=== PATIENT | female | born 1940 | race Caucasian/White ===

== ENCOUNTER → 2017-01-03 | Outpatient (CLI) | payer OTHER ==
[~2017-01-03] MED LIST: CHOL1CAP57 PO; CLC100 PO; CYAN500T13 PO; FENO1TAB24 PO; FOLI1TAB7 PO; NRN400 PO; OMEP40CA PO; RXC5 PO; TRAM-10 PO; TRIATAB3 PO; WARF4TAB PO; ZOLP10TA6 PO
[2017-01-03 13:22] LABS: BASO % 0.6 %; BASO ABS # 0.04 K/uL (0-0.2); COMPLETE YES; EOS % 3.6 %; HEMATOCRIT 36.8 % (37-47); IG% 0.3 %; LYMPH ABS # 1.89 K/uL (1.2-3.4); MEAN CELL VOLUME 80.2 fL (80-100); MEAN CORPUSCULAR HEMOGLOBIN 26.1 pg (25-34); MEAN CORPUSCULAR HGB CONC 32.6 g/dl (32-36); MEAN PLATELET VOLUME 8.9 fL (7.4-10.4); MONO % 6.9 %; NEUT % 62.6 %; PLATELET COUNT 364 K/uL (130-400); RED BLOOD COUNT 4.59 M/uL (4.2-5.4); WHITE BLOOD COUNT 7.27 K/uL (4.8-10.8)
[2017-01-03 13:38] LABS: BLOOD UREA NITROGEN 36 mg/dl (7-18); BUN/CREATININE RATIO 32.4 (10-20); CALCIUM 10.1 mg/dl (8.5-10.1); CARBON DIOXIDE 27 mmol/L (21-32); CHLORIDE 105 mmol/L (98-107); GLUCOSE 119 mg/dl (70-99); POTASSIUM 3.6 mmol/L (3.5-5.1); SODIUM 141 mmol/L (136-145)
[2017-01-03 13:42] LABS: FERRITIN 146.3 ng/ml (8.0-388.0)
--- NOTE | 2017-01-23 13:35 | CODING QUERY MEDICAL NECESSITY ---
SUPPORTING DIAGNOSIS NEEDED A supporting diagnosis is required for the test/procedure performed on this patient in order for us to be reimbursed by the patient's insurance. Please provide a supporting diagnosis for the following test/procedure listed below next to the test name along with your signature. *If there is no additional diagnosis for this patient that would support the following test/procedure please document that below next to the test/procedure. Test(s)/Procedure(s) that require a supporting diagnosis: DOS 01/03 * Vitamin B12 DIAGNOSIS: Provider Signature: Date: Thank you Chayo Ashraf Health Information Management Once completed, please kindly fax back to [phone] For questions please call [phone]
== END | disposition home or self-care (01) ==
LOC: C.LABBC 11:20
PROVIDERS: ATTEND Internal Medicine
DX: D64.9 Anemia, unspecified (principal); E55.9 Vitamin D deficiency, unspecified

== ENCOUNTER → 2017-02-27 | Outpatient (CLI) | payer OTHER ==
[~2017-02-27] MED LIST changes: +CALC-279 PO; +FERR1TAB23 PO; +GABA-113 PO; +LOSA1TAB PO; +MONT1TAB3 PO; +OMEP40CA41 PO
[2017-02-27 15:01] LABS: URINE APPEARANCE CLEAR (CLEAR); URINE BILIRUBIN NEG (NEG); URINE COLOR YELLOW; URINE EPITHELIAL CELL AUTO 0-5 /lpf (0-5); URINE NITRITE NEG (NEG); URINE PH 7.5 (4.5-7.5); URINE SPECIFIC GRAVITY 1.016 (1.000-1.030); UROBILINOGEN NEG (NEG)
[2017-02-27 15:11] LABS: MANUAL MICROSCOPIC REQUIRED? NO; REVIEW REQ? NO
== END | disposition home or self-care (01) ==
LOC: C.LAB1850 13:47
PROVIDERS: ATTEND Internal Medicine Rheumatology
DX: R35.0 Frequency of micturition (principal); E55.9 Vitamin D deficiency, unspecified; M81.0 Age-related osteoporosis without current pathological fracture; E61.8 Deficiency of other specified nutrient elements

== ENCOUNTER → 2017-03-08 | Outpatient (CLI) | payer OTHER ==
--- NOTE | 2017-03-08 14:57 | DIAGNOSTIC IMAGING REPORT ---
KUB CLINICAL HISTORY: Urinary urgency. FINDINGS: An AP supine abdominal radiograph is correlated with abdominal CT dated 03/11/2016. Suture material projects over the right mid to lower abdomen. Surgical clips are seen in the upper abdomen and right lower quadrant. There is no radiographic evidence of bowel obstruction. Moderate colonic fecal retention is observed. No evidence of intraperitoneal free air is seen on this supine examination. A punctate nonobstructing left renal calculus is identified. Vascular calcifications are seen in the left upper quadrant. The skeletal structures are osteopenic. There is lumbosacral spondylosis with evidence of previous lumbar spinal fusion surgery. The bony pelvis is intact as imaged. IMPRESSION: 1. Nonobstructed abdominal bowel gas pattern noting moderate colonic fecal retention. 2. Postoperative changes as above. 3. A nonobstructing left calculus is identified. Electronically signed by: Rc Aguilar M.D. 03/08/2017 2:54 PM Dictated Date/Time: 03/08/2017 2:53 PM
--- NOTE | 2017-03-08 16:10 | DIAGNOSTIC IMAGING REPORT ---
RENAL ULTRASOUND CLINICAL HISTORY: Renal cyst. COMPARISON STUDY: CT of the abdomen and pelvis March 11, 2016 and January 14, 2013. TECHNIQUE: Sonography of the kidneys and the urinary bladder was performed. FINDINGS: The right kidney measures 10.9 cm in maximal dimension and the left measures 10.2 cm. Each renal pelvis is prominent. This is unchanged. There is no hydronephrosis. Numerous cysts are noted within each kidney, the largest of which is a 2.1 cm right-sided cyst. Renal echogenicity is mildly increased. A 2.8 cm right hepatic lobe cyst containing debris is noted. The left ureteral jet was less. The right was not visualized. IMPRESSION: 1. Numerous bilateral renal cysts. 2. 2.8 cm right hepatic lobe cyst. 3. No hydronephrosis. Electronically signed by: Fred Patel M.D. 03/08/2017 4:08 PM Dictated Date/Time: 03/08/2017 4:06 PM
== END | disposition home or self-care (01) ==
LOC: C.ULTR 13:42
PROVIDERS: ATTEND Urology
DX: R39.15 Urgency of urination (principal); N28.1 Cyst of kidney, acquired; K59.00 Constipation, unspecified; N20.0 Calculus of kidney; K76.89 Other specified diseases of liver

== ENCOUNTER → 2017-03-09 | Outpatient (CLI) | payer OTHER ==
--- NOTE | 2017-03-09 16:29 | MAMMOGRAPHY REPORT ---
BILATERAL DIGITAL SCREENING MAMMOGRAM WITH CAD: 03/09/2017 CLINICAL HISTORY: Routine screening. Patient has no complaints. TECHNIQUE: Current study was also evaluated with a Computer Aided Detection (CAD) system. Bilatera l CC and MLO views were obtained. COMPARISON: Comparison is made to exams dated: 12/21/2015 mammogram, 11/04/2014 mammogram, 10/14/2013 mammogram, 09/27/2011 mammogram, 10/11/2012 mammogram, and 09/21/2010 ultrasound - [facility]. BREAST COMPOSITION: There are scattered areas of fibroglandular density in both breasts. FINDINGS: No suspicious masses, calcifications, or areas of architectural distortion are noted in e ither breast. There has been no significant interval change compared to prior exams. Bilateral kesha gn appearing calcifications are not significantly changed compared to prior exams. IMPRESSION: ACR BI-RADS CATEGORY 2: BENIGN There is no mammographic evidence of malignancy. A 1 year screening mammogram is recommended. The p atient will receive written notification of the results. Approximately 10% of breast cancers are not detected with mammography. A negative mammographic repor t should not delay biopsy if a clinically suggestive mass is present. Maria Luz Kirk M.D. /:03/09/2017 15:35:06 Facility Maintenance Mechanic: Pita COBIAN,R, M, [facility] letter sent: Normal 1/2 BI-RADS Code: ACR BI-RADS Category 2: Benign
== END | disposition home or self-care (01) ==
LOC: C.MAMM 13:35
PROVIDERS: ATTEND Obstetrics & Gynecology
DX: Z12.31 Encounter for screening mammogram for malignant neoplasm of breast (principal)

== ENCOUNTER → 2017-04-11 | Outpatient (CLI) | payer OTHER ==
[2017-04-11 17:07] LABS: URINE APPEARANCE CLEAR (CLEAR); URINE BILIRUBIN NEG (NEG); URINE COLOR YELLOW; URINE EPITHELIAL CELL AUTO 0-5 /lpf (0-5); URINE NITRITE POS (NEG); UROBILINOGEN NEG (NEG)
[2017-04-11 17:11] LABS: MANUAL MICROSCOPIC REQUIRED? NO; REVIEW REQ? NO
[2017-04-11 18:04] LABS: RATIO 59.3 mcg/mg (0-30.0)
== END | disposition home or self-care (01) ==
LOC: C.LABBC 15:23
PROVIDERS: ATTEND Internal Medicine
DX: E11.9 Type 2 diabetes mellitus without complications (principal); N39.0 Urinary tract infection, site not specified

== ENCOUNTER → 2017-06-09 | Outpatient (CLI) | payer OTHER ==
[~2017-06-09] MED LIST changes: -CALC-279 PO; -FERR1TAB23 PO; -GABA-113 PO; -LOSA1TAB PO; -MONT1TAB3 PO; -OMEP40CA41 PO
[2017-06-09 11:38] LABS: ALT/SGPT 29 U/L (12-78); AST/SGOT 17 U/L (15-37); BLOOD UREA NITROGEN 35 mg/dl (7-18); BUN/CREATININE RATIO 28.8 (10-20); CALCIUM 9.5 mg/dl (8.5-10.1); CARBON DIOXIDE 24 mmol/L (21-32); CHLORIDE 107 mmol/L (98-107); GLUCOSE 158 mg/dl (70-99); POTASSIUM 4.3 mmol/L (3.5-5.1); SODIUM 141 mmol/L (136-145)
[2017-06-09 11:41] LABS: CHOLESTEROL 231 mg/dl (0-200); CHOLESTEROL/HDL RATIO 3.6; HDL CHOLESTEROL 64 mg/dl; LDL CHOLESTEROL CALCULATED 141 mg/dl; TRIGLYCERIDES 130 mg/dl (0-150); VERY LOW DENSITY LIPOPROT CALC 26 mg/dl
[2017-06-09 11:50] LABS: ESTIMATED AVERAGE GLUCOSE 137 mg/dl; HA1C FLAG Normal (Normal)
== END | disposition home or self-care (01) ==
LOC: C.LABBC 07:58
PROVIDERS: ATTEND Internal Medicine
DX: N39.0 Urinary tract infection, site not specified (principal); G62.9 Polyneuropathy, unspecified; E78.5 Hyperlipidemia, unspecified; E11.9 Type 2 diabetes mellitus without complications; Z85.038 Personal history of other malignant neoplasm of large intestine

== ENCOUNTER → 2017-09-15 | Outpatient (CLI) | payer OTHER ==
[~2017-09-15] MED LIST changes: +CALC-279 PO; +FERR1TAB23 PO; +GABA-113 PO; +LOSA1TAB PO; +MONT1TAB3 PO; +OMEP40CA41 PO
[2017-09-15 10:53] LABS: HEMATOCRIT 39.5 % (37-47); MEAN CELL VOLUME 84.4 fL (80-100); MEAN CORPUSCULAR HEMOGLOBIN 27.4 pg (25-34); MEAN CORPUSCULAR HGB CONC 32.4 g/dl (32-36); MEAN PLATELET VOLUME 8.9 fL (7.4-10.4); PLATELET COUNT 350 K/uL (130-400); RED BLOOD COUNT 4.68 M/uL (4.2-5.4); WHITE BLOOD COUNT 6.65 K/uL (4.8-10.8)
[2017-09-15 11:21] LABS: ALT/SGPT 34 U/L (12-78); BLOOD UREA NITROGEN 28 mg/dl (7-18); BUN/CREATININE RATIO 28.5 (10-20); CALCIUM 9.8 mg/dl (8.5-10.1); CARBON DIOXIDE 29 mmol/L (21-32); CHLORIDE 106 mmol/L (98-107); CHOLESTEROL 217 mg/dl (0-200); CREATININE 0.98 mg/dl (0.60-1.20); GLUCOSE 113 mg/dl (70-99); POTASSIUM 3.7 mmol/L (3.5-5.1); SODIUM 141 mmol/L (136-145); TRIGLYCERIDES 200 mg/dl (0-150); VERY LOW DENSITY LIPOPROT CALC 40 mg/dl
[2017-09-15 11:22] LABS: ALB/GLOB RATIO 1.1 (0.9-2); ALKALINE PHOSPHATASE 46 U/L (45-117); AST/SGOT 24 U/L (15-37); CHOLESTEROL/HDL RATIO 3.9; HDL CHOLESTEROL 55 mg/dl; LDL CHOLESTEROL CALCULATED 122 mg/dl
[2017-09-15 11:30] LABS: ESTIMATED AVERAGE GLUCOSE 134 mg/dl; HA1C FLAG Normal (Normal)
[2017-09-15 11:31] LABS: RATIO 21.3 mcg/mg (0-30.0)
== END | disposition home or self-care (01) ==
LOC: C.LABBC 08:19
PROVIDERS: ATTEND Internal Medicine
DX: E11.9 Type 2 diabetes mellitus without complications (principal); D64.9 Anemia, unspecified; E78.5 Hyperlipidemia, unspecified; E83.52 Hypercalcemia

== ENCOUNTER → 2017-09-18 | Outpatient (CLI) | payer OTHER ==
[~2017-09-18] MED LIST changes: +GADAVIST IV PRN
--- NOTE | 2017-09-18 11:45 | DIAGNOSTIC IMAGING REPORT ---
LUMBAR SPINE MRI WITH AND WITHOUT CONTRAST HISTORY: LT LEG Numbness, s/p LAMINECTOMY TECHNIQUE: Multiplanar multisequence MRI of the lumbar spine was performed both before and after the intravenous administration of contrast. COMPARISON: Lumbar spine 08/28/2016. Lumbar spine MRI 12/28/2015.. FINDINGS: For the purpose of the report the L5-S1 disc space will be located on axial image 23 of 25. There is again noted posterior decompression and fusion from L3 through L5 with pedicle screws and rods. Interval progression of 4 mm of anterolisthesis of L4 on L5. Moderate to severe superior endplate compression deformity at T12 which demonstrates 4 mm of retropulsion of the posterior superior corner. No significant edema within the endplate. Therefore, this is consistent with an old, healed fracture. This results in mild central canal narrowing and abuts and slightly deforms the anterior cord at this level. No acute fractures identified within the lumbar spine. Soft tissue edema at the laminectomy sites is likely due to the postoperative change. The conus terminates at the L1 level. Severe disc space narrowing at L1-L2, L2-L3, L3-L4. Moderate to space narrowing at L4-L5 and L5-S1. Enhancement at the laminectomy sites persist and likely represents postoperative change. Bilateral renal cysts are again noted. L1-L2: Progressive broad-based posterior disc bulge and ligamentum and facet hypertrophy resulting in mild to moderate central canal and neural foraminal narrowing. L2-L3: Progressive broad-based posterior disc bulge and ligamentum and facet hypertrophy resulting in moderate central canal and moderate bilateral neural foraminal narrowing. L3-L4: Small broad-based posterior disc bulge without central canal narrowing due to the decompression. There is moderate right neural foraminal narrowing, unchanged. L4-L5: No significant central canal narrowing. Moderate to severe bilateral neural foraminal narrowing. L5-S1: No significant central canal or neural foraminal narrowing. IMPRESSION: 1. There is an old moderate to severe superior endplate compression fracture at T12 with 4 mm of retropulsion. This abuts and slightly deforms the distal anterior thoracic cord. 2. Progressive central canal narrowing at L1-L2 and L2-L3 as described above. 3. Additional postoperative and degenerative changes as described above. Electronically signed by: Salvador Nova M.D. 09/18/2017 11:44 AM Dictated Date/Time: 09/18/2017 11:27 AM
== END | disposition home or self-care (01) ==
LOC: C.MRI 09:53
PROVIDERS: ATTEND Physical Medicine & Rehabilitation
DX: R20.0 Anesthesia of skin (principal); Z91.81 History of falling; Z98.1 Arthrodesis status; M48.061 Spinal stenosis, lumbar region without neurogenic claudication; S22.089S Unspecified fracture of T11-T12 vertebra, sequela; X58.XXXS Exposure to other specified factors, sequela

== ENCOUNTER → 2017-10-11 | Day surgery (SDC) | payer OTHER ==
[2017-09-28 15:15] VITALS: Ht 154.9 cm; Wt 60.0 kg
[~2017-10-11] VITALS: Ht 154.9 cm; Wt 60.0 kg
[~2017-10-11] MED LIST changes: +BUPIVACAINE 0.25% 2.5MG/ML PF 10 ML VIAL ONE; -CLC100 PO; -GADAVIST IV PRN; +IOPAMIDOL INJ 61% 15 ML VIAL ONE; +LIDOCAINE HCL 1% MPF 5 ML VIAL ONE; -NRN400 PO; -OMEP40CA PO; -RXC5 PO
[2017-10-11 14:27] LABS: PROTHROMBIN TIME (PATIENT) 10.6 SECONDS (9.0-12.0)
--- NOTE | 2017-10-11 15:32 | History & Physical Bridge - SC ---
H&P Re-Evaluation Bridge Note: I have examined the patient, reviewed the History & Physical and in the interval since the performance of the History & Physical I have noted the following changes of clinical significance: No changes noted
--- NOTE | 2017-10-11 16:03 | Discharge Instructions ---
Discharge Instructions Date of Service Oct 11, 2017. Visit Reason for Visit: Lumbar Radiculopathy Discharge Discharge Diagnosis / Problem: left leg pain Discharge Goals Goal(s): Decrease discomfort, Improve function Activity Recommendations Activity Limitations: resume your previous activity Anesthesia . Post Anesthesia Instructions: If you have had General Anesthesia or IV Sedation: * Do not drive today. * Resume driving when surgeon permits. * Do not make important decisions or sign legal documents today. * Call surgeon for: 1. Temperature elevations greater than 101 degrees F. 2. Uncontrollable pain. 3. Excessive bleeding. 4. Persistent nausea and vomiting. 5. Medication intolerance (nausea, vomiting or rash). * For nausea and vomiting use only clear liquids such as: tea, soda, bouillon until nausea subsides, then gradually increase diet as tolerated. * If you have any concerns or questions, call your surgeon's office. If physician is unavailable and it is an emergency, call 911 or go to the nearest emergency room. . Diet Recommendations Recommended Home Diet: resume previous diet Procedures Procedures Performed: Left L4-5 Transforaminal Epidural Steroid Injection Pending Studies Studies pending at discharge: no Medical Emergencies . Who to Call and When: Medical Emergencies: If at any time you feel your situation is an emergency, please call 911 immediately. . Non-Emergent Contact Non-Emergency issues call your: Specialist . . "Provider Documentation" section prepared by Tyrone Maldonado. .
[2017-10-11 16:10] VITALS: BP 159/77; PULSE 63; TEMP 37; O2SAT 98
--- NOTE | 2017-10-11 16:20 | OPERATIVE REPORT ---
DATE OF OPERATION: 10/11/2017 PREOPERATIVE DIAGNOSES: Left L4 radiculopathy, history of an L3 through L5 decompression with persistent left L4 radiculopathy. POSTOPERATIVE DIAGNOSES: Same. PROCEDURE: Left transforaminal L4 epidural steroid injection under fluoroscopic guidance. INDICATIONS FOR PROCEDURE: The patient is a 77-year-old white female who has received an epidural via a transforaminal approach a year ago with good results. Just recently, the pain started to escalate and come back. She presents today for an injection to provide her with sustained relief. PHYSICAL EXAMINATION: Pleasant female seated comfortably. Some soreness in the left sciatic notch area. She has decreased subjective sensation in the L4 dermatomal distribution. Negative seated straight leg raises. CONSENT: Verbal and written consent was reviewed from the patient. Risks and benefits were reviewed. Risks include but are not limited to epidural abscess, epidural hematoma, allergic reaction, dural puncture. The patient wishes to proceed. DESCRIPTION OF PROCEDURE: The patient was taken back to the special procedures room of the [facility] where she was maintained in a prone position. Backside was cleansed with Betadine x3 and a dry sterile dressing was applied. Fluoroscope was used to identify the L4-5 pedicle area. The projection was then done in an oblique view targeting right below the L4 pedicle and overlying skin was anesthetized with 4 mL of lidocaine 1% with a 25-gauge 1.5-inch needle. A 22-gauge 5-inch spinal needle was then directed targeting inferior pedicle which was somewhat hard to see because of the hardware. After it was targeted in the oblique view, it was moved to an AP projection to advance it. The patient noted some leg discomfort. It was retracted a few millimeters and injected with Isovue 300 contrast which demonstrated outlined of the nerve. She then underwent injection after negative aspiration of 40 mg of Depo-Medrol and 1.5 mL of bupivacaine 0.25%. Injection was well tolerated, reproduced a familiar transient radicular sensation down the left leg. DISPOSITION: 1. The patient is taken out into the discharge recovery area where she will be discharged home once discharge criteria have been met. 2. Follow up in the [facility] office in 2-4 weeks. I attest to the content of the Intraoperative Record and any orders documented therein. Any exception s are noted below.
== END | disposition home or self-care (01) ==
LOC: X.SURG 13:41
PROVIDERS: ATTEND Physical Medicine & Rehabilitation
DX: M54.16 Radiculopathy, lumbar region (principal); Z98.1 Arthrodesis status

== ENCOUNTER → 2017-10-30 | Outpatient (CLI) | payer OTHER ==
[~2017-10-30] MED LIST changes: -BUPIVACAINE 0.25% 2.5MG/ML PF 10 ML VIAL ONE; -IOPAMIDOL INJ 61% 15 ML VIAL ONE; -LIDOCAINE HCL 1% MPF 5 ML VIAL ONE
--- NOTE | 2017-10-30 14:23 | DIAGNOSTIC IMAGING REPORT ---
KUB CLINICAL HISTORY: R30.0 [id number] pain. Dysuria. COMPARISON STUDY: Port fluoroscopy 2017 FINDINGS: Limited visibility of the urinary tracts. Considerable fecal content. Vague microcalcification central left kidney measuring 2.5 mm. Right kidney is not diagnostically evaluated. Stable postoperative changes low lumbar spine. IMPRESSION: Nonobstructing microcalcifications central left kidney. Otherwise unchanged exam within limitations of overlying fecal content. The above report was generated using voice recognition software. It may contain grammatical, syntax or spelling errors. Electronically signed by: Charan Alejo M.D. 10/30/2017 2:21 PM Dictated Date/Time: 10/30/2017 2:19 PM
== END | disposition home or self-care (01) ==
LOC: C.RAD 13:42
PROVIDERS: ATTEND Urology
DX: N28.89 Other specified disorders of kidney and ureter (principal); N20.0 Calculus of kidney; N28.1 Cyst of kidney, acquired; N39.0 Urinary tract infection, site not specified; R39.15 Urgency of urination

== ENCOUNTER → 2017-10-31 | Outpatient (CLI) | payer OTHER | END | disposition home or self-care (01) | LOC: C.LABSPEC 17:02 | PROVIDERS: ATTEND Urology | DX: N39.0 Urinary tract infection, site not specified (principal) ==

== ENCOUNTER → 2017-11-02 | Outpatient (CLI) | payer OTHER ==
[~2017-11-02] MED LIST changes: -FOLI1TAB7 PO; +FOLI1TAB8 PO
--- NOTE | 2017-11-02 15:51 | DIAGNOSTIC IMAGING REPORT ---
R RIBS UNILATERAL WITH PA CHEST HISTORY: 77 years-old Female W19.XXXA [id number] Rib pain on right [id number] acute right-sided rib pain status post fall COMPARISON: Chest and rib radiographs 12/27/2013 TECHNIQUE: PA view of the chest with 4 views of the right ribs FINDINGS: Cardiac silhouette is upper limits of normal. Atherosclerosis of the aorta. No pneumothorax or large pleural effusion. There is chronic blunting of the right costophrenic angle. Fusion hardware of the cervical spine is noted. The bones appear osteopenic. There is subtle cortical irregularity involving the posterior lateral aspect of the right seventh rib which appears new from prior exam. The ribs otherwise appear intact. No acute displaced rib fracture is identified. Surgical clips of the right abdomen are noted. Posterior alem and screw fusion hardware of the lumbar spine. Surgical suture material the right lower quadrant. IMPRESSION: 1. Subtle cortical irregularity involving the posterior lateral aspect of the right seventh rib may reflect acute or subacute nondisplaced fracture. Correlate with point tenderness. No displaced rib fracture or pneumothorax identified. 2. No acute cardiopulmonary process. The above report was generated using voice recognition software. It may contain grammatical, syntax or spelling errors. Electronically signed by: Kenan Fritz M.D. 11/02/2017 3:49 PM Dictated Date/Time: 11/02/2017 3:46 PM
== END | disposition home or self-care (01) ==
LOC: C.RAD1850 15:29
PROVIDERS: ATTEND Nurse Practitioner Adult Health
DX: R07.81 Pleurodynia (principal); W19.XXXA Unspecified fall, initial encounter

== ENCOUNTER → 2018-01-12 | Outpatient (CLI) | payer OTHER ==
[2018-01-12 14:07] LABS: HEMOGLOBIN A1C 6.5 % (4.5-5.6)
[2018-01-12 14:08] LABS: BLOOD UREA NITROGEN 35 mg/dl (7-18); CALCIUM 10.2 mg/dl (8.5-10.1); CARBON DIOXIDE 24 mmol/L (21-32); CREATININE 1.13 mg/dl (0.60-1.20); GLUCOSE 129 mg/dl (70-99); HEMATOCRIT 37.2 % (37-47); HEMOGLOBIN 12.1 g/dL (12.0-16.0); MEAN CELL VOLUME 83.4 fL (80-100); MEAN CORPUSCULAR HEMOGLOBIN 27.1 pg (25-34); MEAN CORPUSCULAR HGB CONC 32.5 g/dl (32-36); MEAN PLATELET VOLUME 8.9 fL (7.4-10.4); PLATELET COUNT 344 K/uL (130-400); POTASSIUM 3.5 mmol/L (3.5-5.1); RED CELL DISTRIBUTION WIDTH CV 15.3 % (11.5-14.5); RED CELL DISTRIBUTION WIDTH SD 46.8 fL (36.4-46.3); SODIUM 138 mmol/L (136-145); WHITE BLOOD COUNT 8.16 K/uL (4.8-10.8)
== END | disposition home or self-care (01) ==
LOC: C.LABBC 10:18
PROVIDERS: ATTEND Internal Medicine
DX: M81.0 Age-related osteoporosis without current pathological fracture (principal); N18.3 Chronic kidney disease, stage 3 (moderate); E55.9 Vitamin D deficiency, unspecified; E11.9 Type 2 diabetes mellitus without complications; G62.9 Polyneuropathy, unspecified; E04.2 Nontoxic multinodular goiter

== ENCOUNTER → 2018-02-23 | Outpatient (CLI) | payer OTHER ==
[~2018-02-23] MED LIST changes: +FENO145T24 PO; -FENO1TAB24 PO
== END | disposition home or self-care (01) ==
LOC: C.LABBC 13:44
PROVIDERS: ATTEND Nurse Practitioner Adult Health
DX: N39.0 Urinary tract infection, site not specified (principal)

== ENCOUNTER → 2018-03-09 | Outpatient (CLI) | payer OTHER ==
[~2018-03-09] MED LIST changes: +ENOX1INJ10 SQ
== END | disposition home or self-care (01) ==
LOC: C.LABBC 13:36
PROVIDERS: ATTEND Nurse Practitioner Adult Health
DX: N39.0 Urinary tract infection, site not specified (principal)

== ENCOUNTER → 2018-03-13 | Outpatient (CLI) | payer OTHER ==
--- NOTE | 2018-03-14 07:51 | MAMMOGRAPHY REPORT ---
BILATERAL DIGITAL SCREENING MAMMOGRAM TOMOSYNTHESIS WITH CAD: 03/13/2018 CLINICAL HISTORY: Routine screening. Patient has no complaints. TECHNIQUE: Breast tomosynthesis in addition to standard 2D mammography was performed. Current study was also evaluated with a Computer Aided Detection (CAD) system. COMPARISON: Comparison is made to exams dated: 03/09/2017 mammogram, 12/21/2015 mammogram, 11/04/2014 m ammogram, 10/14/2013 mammogram, 10/11/2012 mammogram, and 09/27/2011 mammogram - [facility]. BREAST COMPOSITION: There are scattered areas of fibroglandular density in both breasts. FINDINGS: There are benign-appearing rim and rodlike calcifications in the breasts. No new suspiciou s mass, architectural distortion or cluster of microcalcifications is seen. IMPRESSION: ACR BI-RADS CATEGORY 1: NEGATIVE There is no mammographic evidence of malignancy. A 1 year screening mammogram is recommended. The pa tient will receive written notification of the results. Approximately 10% of breast cancers are not detected with mammography. A negative mammographic report should not delay biopsy if a clinically suggestive mass is present. Martha Shabazz M.D. ay/:03/13/2018 16:36:10 Director Of Construction: Medina COBIAN(Kourtney)(M), [facility] letter sent: Normal 1/2 BI-RADS Code: ACR BI-RADS Category 1: Negative
== END | disposition home or self-care (01) ==
LOC: C.MAMM 10:54
PROVIDERS: ATTEND Obstetrics & Gynecology
DX: Z12.31 Encounter for screening mammogram for malignant neoplasm of breast (principal)

== ENCOUNTER → 2018-03-15 | Day surgery (SDC) | payer OTHER ==
[2018-03-05 10:43] VITALS: Ht 154.9 cm; Wt 60.0 kg
[~2018-03-15] VITALS: Ht 154.9 cm; Wt 60.0 kg
[~2018-03-15] MED LIST changes: +IOPAMIDOL INJ 61% 15 ML VIAL ONE; +LIDOCAINE HCL 1% MPF 5 ML VIAL ONE; +SODIUM CHLORIDE 0.9% INJ 10 ML VIAL ONE
[2018-03-15 14:34] LABS: INR 1.1 (0.9-1.1)
--- NOTE | 2018-03-15 15:05 | [facility] Post Operative Brief Note ---
Immediate Operative Summary Operative Date Mar 15, 2018. Pre-Operative Diagnosis lumbar stenosis Post-Operative Diagnosis lumbar stenosis Procedure(s) Performed caudal OG Surgeon Dr. Tyrone Maldonado Bottling Equipment Sales Representative Surgeon(s) None Estimated Blood Loss 0 Findings Consistent with Post-Op Diagnosis Specimens NA Drains None Anesthesia Type Local Complication(s) none Disposition Disposition:
--- NOTE | 2018-03-15 15:34 | [facility] Post Operative Brief Note ---
Immediate Operative Summary Operative Date Mar 15, 2018. Pre-Operative Diagnosis L2-L3 stenosis and history of multilevel lumbarlaminectomy, decompression with presistent radicular pain Post-Operative Diagnosis Same Procedure(s) Performed Lumbar Epidural Steroid Injection Surgeon Dr. Ewa Maldonado Bead Preparer Surgeon(s) None Estimated Blood Loss 0 Findings Consistent with Post-Op Diagnosis Specimens NA Drains None Anesthesia Type Local Complication(s) none Disposition Disposition:
--- NOTE | 2018-03-15 15:35 | Discharge Instructions ---
Discharge Instructions Date of Service Mar 15, 2018. Visit Reason for Visit: Lumbar Radiculopathy, Lumbar Spinal Stenosis Discharge Discharge Diagnosis / Problem: Leg pain Discharge Goals Goal(s): Decrease discomfort, Improve function Medications Stopped Medications Name(s): coumadin 3mg, last dose 03/11/18 Activity Recommendations Activity Limitations: resume your previous activity Anesthesia . Post Anesthesia Instructions: If you have had General Anesthesia or IV Sedation: * Do not drive today. * Resume driving when surgeon permits. * Do not make important decisions or sign legal documents today. * Call surgeon for: 1. Temperature elevations greater than 101 degrees F. 2. Uncontrollable pain. 3. Excessive bleeding. 4. Persistent nausea and vomiting. 5. Medication intolerance (nausea, vomiting or rash). * For nausea and vomiting use only clear liquids such as: tea, soda, bouillon until nausea subsides, then gradually increase diet as tolerated. * If you have any concerns or questions, call your surgeon's office. If physician is unavailable and it is an emergency, call 911 or go to the nearest emergency room. . Diet Recommendations Recommended Home Diet: resume previous diet Procedures Procedures Performed: Lumbar Epidural Steroid Injection Pending Studies Studies pending at discharge: no Medical Emergencies . Who to Call and When: Medical Emergencies: If at any time you feel your situation is an emergency, please call 911 immediately. . Non-Emergent Contact Non-Emergency issues call your: Specialist . . "Provider Documentation" section prepared by Tyrone Maldonado. .
[2018-03-15 15:56] VITALS: BP 150/73; PULSE 64; TEMP 36.8; O2SAT 98
--- NOTE | 2018-03-15 16:12 | OPERATIVE REPORT ---
DATE OF OPERATION: 03/15/2018 PREOPERATIVE DIAGNOSIS: Status post laminectomy with persistent radicular pain with L2-L3 stenosis with persistent bilateral lower extremity radiculopathies. POSTOPERATIVE DIAGNOSES: Status post laminectomy with persistent radicular pain with L2-L3 stenosis with persistent bilateral lower extremity radiculopathies. PROCEDURE: Left paramedian L2-L3 intralaminar epidural steroid injection under fluoroscopic guidance. INDICATIONS: The patient is a 77-year-old white female who is having pain that is radiating into the thighs. She has known stenosis at L2-L3 above the level of her laminectomy, presents today for an epidural injection to provide her with relief. She previously responded favorably to an L4 transforaminal. This pain does not go below the knee, it is concentrated into the thighs. PHYSICAL EXAMINATION: A pleasant female, seated comfortably. Lower extremities were examined. She had normal lower extremity strength. Negative seated straight leg raises, intact sensation distally. CONSENT: Verbal and written consent was obtained from the patient. Risks and benefits were reviewed. Risks include but are not limited to abscess and allergic reaction. The patient wishes to proceed. PROCEDURE IN DETAIL: The patient was taken back to the special procedures room of the [facility] where she was maintained in a prone position. Backside was cleansed with Betadine x3 and a dry sterile dressing was applied. Fluoroscope was used to identify the L2-L3 intralaminar space. The overlying skin was anesthetized with 4 mL of lidocaine 1% on the left parasagittal region with a 25 gauge 1.5-inch needle. A 22-gauge 3.5-inch Tuohy needle was then directed down towards the intralaminar space. It was advanced under lateral fluoroscopic guidance and loss of resistance was noted at a depth of 5 cm. Isovue-300 contrast 1 mL was injected in, which demonstrated an epidural uptake pattern. She then underwent injection after negative aspiration of 40 mg of Depo-Medrol and 4 mL preservative-free sodium chloride that reproduced a familiar transient radicular sensation into the thigh. DISPOSITION: 1. The patient is taken out into the discharge recovery area where she will be discharged home once discharge criteria are met. 2. Follow up in the [facility] office in 4 weeks' time. I attest to the content of the Intraoperative Record and any orders documented therein. Any exception s are noted below.
== END ==
LOC: X.SURG 13:36
PROVIDERS: ATTEND Physical Medicine & Rehabilitation
DX: M54.16 Radiculopathy, lumbar region (principal); M48.061 Spinal stenosis, lumbar region without neurogenic claudication; M96.1 Postlaminectomy syndrome, not elsewhere classified

== ENCOUNTER → 2018-06-28 | Outpatient (CLI) | payer OTHER ==
[~2018-06-28] MED LIST changes: -ENOX1INJ10 SQ; -GABA-113 PO; +GABA-1693 PO; -IOPAMIDOL INJ 61% 15 ML VIAL ONE; -LIDOCAINE HCL 1% MPF 5 ML VIAL ONE; -SODIUM CHLORIDE 0.9% INJ 10 ML VIAL ONE
[2018-06-28 14:07] LABS: CREATININE RANDOM URINE 77.7 mg/dl
== END | disposition home or self-care (01) ==
LOC: C.LABBC 10:43
PROVIDERS: ATTEND Urology
DX: E11.9 Type 2 diabetes mellitus without complications (principal); R39.15 Urgency of urination; N39.0 Urinary tract infection, site not specified

== ENCOUNTER 2019-02-14 05:03 | Inpatient (IN) ==
--- NOTE | 2019-01-29 09:39 | Anesthesiology Consultation ---
Date of Service January 29, 2019 Assessment & Plan (1) Encounter for pre-operative examination: CHECK PT/INR/PTT STAT AM DOS. Chart Review Chart Review: Acceptable Risk for Surgery and Patient seen in Pre Admission Testing Teaching & Discussion Instructed NPO after midnight before surgery, except medications with 15 cc of water. Medication instructions provided according to the PAT guidelines. History Surgery Operation Date: 02/14/19 07:00 Proposed Procedures p Laparoscopic Cholecystectomy, - Bryson Sanchez, DO s Laparoscopic Hand Assisted Nephrectomy - Harman Dutta MD Height/Weight Height: 5 ft 1 in Weight: 60.8 kg Allergies Allergy/AdvReac Type Severity Reaction Status Date / Time cephalexin [From Keflex] Allergy Severe Hives Verified 01/25/19 09:34 adhesive Allergy Intermediate TAPE Verified 01/25/19 09:34 ALLERGY = "TEARS SKIN" clavulanic acid Allergy Mild vomiting/or Verified 01/25/19 09:34 [From Augmentin] rash bacitracin Allergy Unknown ALLERGY TO Verified 01/25/19 09:34 "TOPICAL ANTIBIOTICS" ?? Fish Containing Products Allergy Unknown UNKNOWN Verified 01/25/19 09:34 neomycin Allergy Unknown ALLERGY TO Verified 01/25/19 09:34 "TOPICAL ANTIBIOTICS" ?? polymyxin B Allergy Unknown ALLERGY TO Verified 01/25/19 09:34 "TOPICAL ANTIBIOTICS" ?? amoxicillin AdvReac Intermediate Vomiting Verified 01/25/19 09:34 nitrofurantoin AdvReac Intermediate FLU-LIKE Verified 01/25/19 09:34 SYMPTOMS Medications Home Medications Medication Instructions Recorded Confirmed Last Taken Caltrate 600 + D 1 tab PO QPM 08/15/18 01/25/19 12/11/18 cholecalciferol (vitamin D3) 2,000 unit PO QAM 08/15/18 01/25/19 12/11/18 [Vitamin D3] cyanocobalamin (vitamin B-12) 500 mcg PO QAM 08/15/18 01/25/19 12/11/18 [Vitamin B-12] fenofibrate nanocrystallized 0.5 tab PO HS 08/15/18 01/25/19 12/11/18 folic acid 2 tab PO BID 08/15/18 01/25/19 12/11/18 gabapentin 200 mg PO BID 08/15/18 01/25/19 12/11/18 losartan 25 mg PO QAM 0901/25/19 12/12/18 omeprazole 40 mg PO QAM 08/15/18 01/25/19 09/12/18 tramadol 50 mg PO QAM PRN 08/15/18 01/25/19 12/12/18 triamterene-hydrochlorothiazid 1 cap PO QAM 08/15/18 01/25/19 12/12/18 warfarin 3 mg PO QAM 08/15/18 01/25/19 12/11/18 zolpidem 5 - 10 mg PO HS PRN 08/15/18 01/25/19 09/11/18 diphenhydramine HCl [Benadryl 25 mg PO Q8H PRN #30 tab 08/16/18 01/25/19 09/12/18 08:00 Allergy] Past Medical History Medical History Cardiac murmur Per 07/2018 echo: Mild MR and TR. Mild aortic calcification without hemodynamically significant valvular aortic stenosis. Cholelithiasis Chronic UTI (urinary tract infection) Chronic back pain GERD (gastroesophageal reflux disease) History of colon cancer s/p R hemicolectomy 1989. +Chemo. 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 Hyperlipidemia Hypertension Kidney stones HX OF Osteoarthritis Osteopenia Pre-diabetes Renal mass Past Family History Family History Other No pertinent family history Past Surgical History Surgical History Fusion of spine LUMBAR L3-L5, AND CERVICAL 3-4 WITH FULL ROM H/O hemicolectomy History of section X2 History of colonoscopy History of hysterectomy ARMANDO WITH OOPHRECTOMY History of laminectomy LUMBAR History of open reduction and internal fixation (ORIF) procedure RIGHT LEG History of parathyroidectomy X2 History of parotid gland excision LEFT Hx of cystoscopy with urethral stent placement Past Anesthesia History No Hx of Anesthesia Complications and No Family Hx of Anesthesia Complications History of PONV No Motion Sickness Screening History of Motion Sickness: No Social History Smoking Status: Never smoker Do You Dip or Chew Tobacco: No Hx Alcohol Use: Yes Alcohol type: wine and hard liquor alcohol intake frequency: holidays/special occasions only Hx Substance Use: No substance use type: does not use Exercise / Class Metabolic Activity II 4-5 Yardwork/Stairs/Walk up hill (Denies CP or SOB with stairs, does full flight daily at home.) Review of Systems Pt denies any recent chest pain, shortness of breath, palpitations, cough, fever or URI. +nasal congestion, rhinitis currently. Physical Exam Vital Signs BP: 151/82 (pt forgot to take HTN med this AM) P: 71bpm SPO2: 97% RA T: 97.9 F R: 16 ENMT Mouth: + dental bridge and + dental restorations (few gold caps); no chipped edil th and no loose teeth Thyromental Distance: > or= 3.5 Finger Breadths (4) Mallampati Class: III Neck normal visual inspection; neck extension not limited Respiratory normal respiratory effort Auscultation: lungs clear to auscultation bilaterally Cardiovascular Rate/Rhythm: regular rate and regular rhythm Heart Sounds: + murmur (II/ VAN RSB) Vessels: no carotid bruit Extremities: no edema Testing Electrocardiogram Date: 07/26/18 Findings: + NSR @ (66) Minimal voltage criteria for LVH, may be normal variant. Chest X-Ray Date: 12/25/18 1. 8.4 mm mixed solid and groundglass pulmonary nodule within superior segment of the left lower lobe. 2. Moderate to marked T12 compression fracture with mild retropulsion. Moderate superior endplate T12 compression fracture. 3. No evidence of pathologic adenopathy 4. Multinodular thyroid gland 5. 3-[address] follow-up is recommended per Fleischner criteria. Echocardiogram Date: 08/06/18 EF: 55-60% Left ventricular size, wall motion and systolic function are normal. Mild joe ntric LVH. Grade 1 diastolic dysfunction. Mild MR and TR. Mild aortic calcification without hemodynamically significant valvular aortic stenosis. Compared with study dated 02/23/2010 no significant change. Laboratory Results 01/29/19 09:49 01/29/19 09:49 Blood Type A Positive 01/29/19 09:49 Antibody Screen POSITIVE A 03 09:49 Urine Color Yellow 01/29/19 09:49 Urine Appearance Clear (Clear) 01/29/19 09:49 Urine pH 6.0 (4.5-7.5) 01/29/19 09:49 Ur Specific [place] 1.020 (1.000-1.030) 03/05/19 09:49 Urine Protein Negative (Negative) 01/29/19 09:49 Urine Glucose (UA) Negative (Negative) 01/29/19 09:49 Urine Ketones Negative (Negative) 01/29/19 09:49 Urine Nitrite Positive (Negative) H 01/29/19 09:49 Ur Leukocyte Esterase 2+ (Negative) H 01/29/19 09:49 Urine WBC (Auto) >30 /hpf (0-5) H 01/29/19 09:49 Urine RBC (Auto) 5-10 /hpf (0-4) H 01/29/19 09:49 U Hyaline Cast (Auto) 1-5 /lpf (0-5) 01/29/19 09:49 U Epithel Cells (Auto) 5-10 /lpf (0-5) H 01/29/19 09:49 Urine Bacteria (Auto) 3+ (Negative) H 01/29/19 09:49
--- NOTE | 2019-01-29 09:48 | PAT Medication Instructions ---
Medication Instructions Date of Service January 29, 2019 Home Medications Medication Instructions Recorded diphenhydramine HCl [Benadryl 25 mg PO Q8H PRN #30 tab 08/16/18 Allergy] Caltrate 600 + D 1 tab PO QPM cholecalciferol (vitamin D3) 2,000 unit PO QAM cyanocobalamin (vitamin B-12) 500 mcg PO QAM fenofibrate nanocrystallized 0.5 tab PO HS folic acid 2 tab PO BID gabapentin 200 mg PO BID losartan 25 mg PO QAM omeprazole 40 mg PO QAM tramadol 50 mg PO QAM PRN triamterene-hydrochlorothiazide 1 cap PO QAM warfarin 3 mg PO QAM zolpidem 5 - 10 mg PO HS PRN diphenhydramine HCl [Benadryl] 25 mg PO Q8H PRN ASK your prescriber and surgeon warfarin 3 mg PO QAM STOP taking 24 hours before surgery fenofibrate nanocrystallized 0.5 tab PO HS DO NOT take the morning of surgery cholecalciferol (vitamin D3) 2,000 unit PO QAM cyanocobalamin (vitamin B-12) 500 mcg PO QAM folic acid 2 tab PO BID losartan 25 mg PO QAM triamterene-hydrochlorothiazide 1 cap PO QAM diphenhydramine HCl [Benadryl] 25 mg PO Q8H PRN Take morning of surgery With a small sip of water, OTHERWISE NOTHING TO EAT OR DRINK AFTER MIDNIGHT: gabapentin 200 mg PO BID omeprazole 40 mg PO QAM tramadol 50 mg PO QAM PRN (if needed, may be taken up to four hours before surgery) Take evening before surgery Caltrate 600 + D 1 tab PO QPM folic acid 2 tab PO BID gabapentin 200 mg PO BID tramadol 50 mg PO QAM PRN (if needed) zolpidem 5 - 10 mg PO HS PRN (if needed) diphenhydramine HCl [Benadryl] 25 mg PO Q8H PRN (if needed) Other Notes If you have any questions please call us at [phone] or [phone] or [phone] or [phone]
[2019-01-29 10:40] LABS: Basophils # (auto) 0.06 K/uL (0-0.2); Basophils % (auto) 0.8 %; Eosinophils # (auto) 0.39 K/uL (0-0.5); Eosinophils % (auto) 4.9 %; Hematocrit (blood only) 37.2 % (37-47); Hemoglobin 11.9 g/dL (12.0-16.0); Immature Granulocytes # (auto) 0.05 K/uL (0.00-0.02); Immature Granulocytes % (auto) 0.6 %; Lymphocytes # (auto) 1.84 K/uL (1.2-3.4); Lymphocytes % (auto) 23.1 %; Mean Corpuscular Volume 84.4 fL (80-100); Mean Platelet Volume 9.3 fL (7.4-10.4); Monocytes # (auto) 0.65 K/uL (0.11-0.59); Monocytes % (auto) 8.2 %; Neutrophils # (auto) 4.98 K/uL (1.4-6.5); Neutrophils % (auto) 62.4 %; Platelet Count 351 K/uL (130-400); RDW Coefficient of Variation 15.4 % (11.5-14.5); RDW Standard Deviation 47.5 fL (36.4-46.3); Red Blood Count 4.41 M/uL (4.2-5.4); White Blood Count 7.97 K/uL (4.8-10.8)
[2019-01-29 10:51] LABS: Appearance Urine Clear (Clear); Bacteria Urine Automated 3+ (Negative); Bilirubin Urine Negative (Negative); Blood Urine Trace (Negative); Color Urine Yellow; Glucose Urine UA Negative (Negative); Ketones Urine Negative (Negative); Leukocyte Esterase Urine 2+ (Negative); Nitrite Urine Positive (Negative); Protein Urine Negative (Negative); Urobilinogen Urine Negative (Negative); WBC Urine Automated >30 /hpf (0-5)
[2019-01-29 11:26] LABS: BUN Creatinine Ratio 31.2 (10-20); Calcium 9.8 mg/dl (8.5-10.1); Creatinine Clr Calc Pharmacy 35.8 ml/min; Est GFR (African American) 56.1; Est GFR (Non-African American) 48.4; Potassium 3.9 mmol/L (3.5-5.1)
[2019-02-14] MEDS ORDERED: LR 15ML/HR IV SCH (06:00)
[2019-02-14] MEDS ORDERED: VANCOMYCIN HCL 1,000 MG/270 ML BAG IV SCH (06:00)
[2019-02-14 06:05] LABS: INR 1.1 (0.9-1.1); Partial Thromboplastin Time 26.3 Seconds (21.0-31.0); Prothrombin Time 11.1 Seconds (9.0-12.0)
[2019-02-14] MEDS ORDERED: BUPIVACAINE 0.5 % 5 MG/1 ML MPF 30ML VIAL ONE (06:33)
[2019-02-14] MEDS ORDERED: BUPIVACAINE/EPINEPHRINE 0.5% MPF 1:200,000 30 ML VIAL ONE (06:34)
[2019-02-14] MEDS ORDERED: GELATIN SPONGE SZ 100 ONE (06:34)
[2019-02-14] MEDS ORDERED: fentaNYL citrate 100 MCG/2 ML VIAL ONE ×5 (06:37→11:01)
[2019-02-14] MEDS ORDERED: MIDAZOLAM HCL 1 MG/ML 2ML VIAL ONE (06:37)
[2019-02-14] MEDS ORDERED: HYDROmorphone INJ 2 MG/ML SYR/VIAL ONE ×3 (06:37→12:10)
[2019-02-14] MEDS ORDERED: NEOSTIGMINE METHYLSULFATE 5 MG/5 ML SYR ONE (06:38)
[2019-02-14] MEDS ORDERED: PROPOFOL IV EMULSION 10 MG/ML 20 ML VIAL IV ONE ×2 (06:38→09:35)
[2019-02-14] MEDS ORDERED: DEXAMETHASONE SOD INJ 4 MG/ML VIAL ONE (06:38)
[2019-02-14] MEDS ORDERED: ONDANSETRON INJ 2 MG/ML 2 ML VIAL ONE (06:38)
[2019-02-14] MEDS ORDERED: GLYCOPYRROLATE 0.2 MG/ML VIAL ONE (06:38)
[2019-02-14] MEDS ORDERED: LIDOCAINE HCL 2% 2 ML VIAL/AMP(20MG/ML) INFIL ONE (06:38)
[2019-02-14] MEDS ORDERED: ROCURONIUM BROMIDE 10 MG/ML 5 ML VIAL ONE (06:38)
--- NOTE | 2019-02-14 06:48 | History & Physical Bridge Note ---
Date of Service February 14, 2019 History & Physical Bridge Note I have examined the patient, reviewed the History & Physical and in the interval since the performance of the History & Physical I have noted the following changes of clinical significance: no changes noted
[2019-02-14] MEDS ORDERED: HYDROmorphone INJ 1 MG/ML SYRINGE IV PRN (06:53)
[2019-02-14] MEDS ORDERED: fentaNYL citrate 100 MCG/2 ML VIAL IV PRN (06:53)
[2019-02-14] MEDS ORDERED: ePHEDrine sulfate 50 MG/ML AMP IV PRN (06:53)
[2019-02-14] MEDS ORDERED: ATROPINE SULFATE 0.1 MG/ML 10ML SYR IV PRN (06:53)
[2019-02-14] MEDS ORDERED: ONDANSETRON INJ 2 MG/ML 2 ML VIAL IV PRN (06:53)
[2019-02-14] MEDS ORDERED: MANNITOL 25% 12.5 GM/50 ML VIAL IV ONE ×2 (06:55→06:59)
--- NOTE | 2019-02-14 06:55 | History & Physical Report ---
Date of Service February 14, 2019 Assessment & Plan (1) Cholecystitis: discussed options/risks will proceed with combined laparoscopic cholecystectomy and partial right nephrectomy with Dr. Dutta discussed risks/options ok to proceed. (2) Renal mass: History of Present Illness Primary Care Provider: Anthony Yeh MD during workup for gallbladder issues, patient was found to have a right renal mass. Pt here for combined procedure of cholecystectomy and partial right nephrectomy Allergies Allergy/AdvReac Type Severity Reaction Status Date / Time cephalexin [From Keflex] Allergy Severe Hives Verified 02/14/19 05:39 adhesive Allergy Intermediate TAPE Verified 02/14/19 05:39 ALLERGY = "TEARS SKIN" clavulanic acid Allergy Mild vomiting/or Verified 02/14/19 05:39 [From Augmentin] rash bacitracin Allergy Unknown ALLERGY TO Verified 02/14/19 05:39 "TOPICAL ANTIBIOTICS" ?? Fish Containing Products Allergy Unknown UNKNOWN Verified 02/14/19 05:39 neomycin Allergy Unknown ALLERGY TO Verified 02/14/19 05:39 "TOPICAL ANTIBIOTICS" ?? polymyxin B Allergy Unknown ALLERGY TO Verified 02/14/19 05:39 "TOPICAL ANTIBIOTICS" ?? amoxicillin AdvReac Intermediate Vomiting Verified 02/14/19 05:39 nitrofurantoin AdvReac Intermediate FLU-LIKE Verified 02/14/19 05:39 SYMPTOMS Home Medications Home Medications Medication Instructions Recorded Confirmed Type Caltrate 600 + D 1 tab PO QPM 08/15/18 02/14/19 History cholecalciferol (vitamin D3) 2,000 unit PO QAM 08/15/18 02/14/19 History [Vitamin D3] cyanocobalamin (vitamin B-12) 500 mcg PO QAM 08/15/18 02/14/19 History [Vitamin B-12] fenofibrate nanocrystallized 0.5 tab PO HS 08/15/18 02/14/19 History folic acid 2 tab PO BID 08/15/18 02/14/19 History gabapentin 200 mg PO BID 08/15/18 02/14/19 History losartan 25 mg PO QAM 08/15/18 02/14/19 History omeprazole 40 mg PO QAM 08/15/18 02/14/19 History tramadol 50 mg PO QAM PRN 08/15/18 02/14/19 History triamterene-hydrochlorothiazid 1 cap PO QAM 08/15/18 02/14/19 History warfarin 3 mg PO QAM 08/15/18 02/14/19 History zolpidem 5 - 10 mg PO HS PRN 08/15/18 02/14/19 History diphenhydramine HCl [Benadryl 25 mg PO Q8H PRN #30 tab 08/16/18 02/14/19 Rx Allergy] acetaminophen [Tylenol Extra 1,000 mg PO Q6H PRN 02/14/19 02/14/19 History Strength] enoxaparin [Lovenox] 30 mg SUBCUT DIRECTED 02/14/19 02/14/19 History enoxaparin [Lovenox] 60 mg SUBCUT DAILY 02/14/19 02/14/19 History Past Med/Surg History Medical History Cardiac murmur Per 07/2018 echo: Mild MR and TR. Mild aortic calcification without hemodynamically significant valvular aortic stenosis. Cholelithiasis Chronic UTI (urinary tract infection) Chronic back pain GERD (gastroesophageal reflux disease) History of colon cancer s/p R hemicolectomy 1989. +Chemo. 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 Hyperlipidemia Hypertension Kidney stones HX OF Osteoarthritis Osteopenia Pre-diabetes Renal mass Surgical History Fusion of spine LUMBAR L3-L5, AND CERVICAL 3-4 WITH FULL ROM H/O hemicolectomy History of section X2 History of colonoscopy History of hysterectomy ARMANDO WITH OOPHRECTOMY History of laminectomy LUMBAR History of open reduction and internal fixation (ORIF) procedure RIGHT LEG History of parathyroidectomy X2 History of parotid gland excision LEFT Hx of cystoscopy with urethral stent placement Family History Other No pertinent family history Social History Preferred Language: Mohawk Communication Ability: Effective Beliefs That Will Affect Care: None Current Living Situation: Alone Other Information That Helps Us Care for You: No Feels Safe at Home: Yes Safety Concerns: Feels Safe At This Time Smoking Status: Never smoker Hx Alcohol Use: Yes Hx Substance Use: No Review of Systems All systems reviewed & are unremarkable except as noted in HPI & below Physical Exam Vital Signs (Past 24 Hours): Last Vital Signs Temp 36.8 C 02/14/19 05:40 Pulse 71 02/14/19 05:40 Resp 20 02/14/19 05:40 BP 137/75 02/14/19 05:40 Pulse Ox 95 02/14/19 05:40 Physical Exam: alert/oriented. nad Heent: pearla. eomi Heart: RRR Lungs: cta b/l abd: soft. mild RUQ ttp. no g/r/r ext: no c/c/e Results & Data Medications Administered Vancomycin HCl (Vancomycin Hcl) 1,000 mg in 270 mls @ 125 mls/hr IV PREOP HENRY Stop: 02/14/19 18:00 Last Admin: 02/14/19 05:49 Dose: 125 mls/hr Documented by: [id number] Lactated Ringer's (Lr) 1,000 mls @ 15 mls/hr IV .Q24H HENRY Stop: 02/15/19 05:59 Last Admin: 02/14/19 05:45 Dose: 15 mls/hr Documented by: [id number]
[2019-02-14] MEDS ORDERED: ALBUMIN HUMAN 5% 12.5 GM/250 ML VIAL IV ONE (07:07)
[2019-02-14] MEDS ORDERED: SURGICEL ABSORB HEMOSTAT 2IN X 14IN TOP ONE (08:46)
[2019-02-14] MEDS ORDERED: TISSEEL FIBRIN SEALANT 10ML TOP ONE (08:47)
--- NOTE | 2019-02-14 08:56 | Operative Report ---
Post Operative Report Pre & Post Diagnosis Operation Date: 02/14/19 07:00 Pre-Op Diagnosis: Cholelithiasis, RIGHT RENAL MASS Post-Op Diagnosis: Cholelithiasis, RIGHT RENAL MASS Procedure Operation Date: 02/14/19 07:00 Actual Procedures p Laparoscopic Cholecystectomy; extensive ( approx 25 min) enterolysis- Bryson Sanchez DO s Right Robotic Laparoscopic Parital Nephrectomy(Right) - Harman Dutta MD Surgeon Bryson Sanchez DO [employer] Portable Machine yogesh Mckeon Estimated Blood Loss 5 Findings Consistent with Post-Op Diagnosis Specimens gallbladder Description of Procedure After informed consent was obtained the patient was taken to the operating room and placed in supine position. After successful intubation the patient was placed in a left lateral Fowlers position and was positioned by Dr. Harman Dutta according to his preferences. The patient was then sterilely prepped and draped in usual fashion. Dr. Dutta and I attempted to use the Optiview to place a 12 mm port in the left mid abdomen as well as midline. There were a lot of adhesions making this impossible. I therefore converted to an upper midline cutdown technique. I made an incision and used cautery to carry it down to the anterior fascia. I opened the anterior fascia and placed 2 #0 Vicryl stay sutures. Peritoneum was entered using blunt finger penetration a finger sweep was performed. A 12 mm Ruano trocar was placed and the abdomen was insufflated to 18 mmHg. I then placed a left mid abdominal 5 mm trocar under direct vision. I then tediously took down adhesions to the anterior abdominal wall involving primarily small bowel. This was done bluntly as well as sharp scissor lysis and small amounts of harmonic scalpel. We continued to work laterally and superiorly until we had all of the adhesions taken down. Dr. Dutta then placed the remainder of his robotic trochars in his usual fashion. There was also some adhesions stuck to the gallbladder itself. By using traction countertraction I was able to take these adhesions down using sharp scissors. I was then able to easily skeletonize the cystic duct with [place] dissectors. Two clips pr oximally 1 distally were placed and it was transected. In similar fashion the cystic artery was skeletonized clipped and divided. Cautery was used to remove the gallbladder from the gallbladder fossa and placed into an Endo Catch bag. There was adequate hemostasis and no evidence of any bile leaks at the end of the case. I then turned the case over to Dr. Dutta. Please see his dictation for the remainder of the case. We tagged the sutures of the bag and Dr. Dutta was to remove the gallbladder at the end of the case. At this point we scrubbed out. I attest to the content of the Intraoperative Record and any orders documented therein. Any exceptions are noted below.
[2019-02-14] MEDS ORDERED: CISATRACURIUM BESYLATE IV SOLN 2 MG/ML 10 ML VIAL IV ONE (09:34)
[2019-02-14] MEDS ORDERED: LABETALOL HCL IV 5 MG/ML 20ML IV ONE (09:34)
[2019-02-14] MEDS ORDERED: HydrALAZINE HCL 20 MG/ML VIAL ONE (09:34)
[2019-02-14] MEDS ORDERED: ePHEDrine sulfate 50 MG/ML SYR ONE (09:34)
[2019-02-14] MEDS ORDERED: PHENYLEPHRINE 100MCG/ML 5ML SYR ONE (09:34)
[2019-02-14] MEDS ORDERED: ePHEDrine sulfate 50 MG/ML AMP ONE (10:04)
[2019-02-14] MEDS ORDERED: FLOSEAL HEMOSTATIC MATRIX 10ML TOP ONE (11:15)
[2019-02-14] MEDS ORDERED: KETOROLAC 30 MG/ML VIAL ONE (11:57)
--- NOTE | 2019-02-14 12:21 | Operative Report ---
Post Operative Report Pre & Post Diagnosis Operation Date: 02/14/19 07:00 Pre-Op Diagnosis: Cholelithiasis, RIGHT RENAL MASS Post-Op Diagnosis: Cholelithiasis, RIGHT RENAL MASS Procedure Operation Date: 02/14/19 07:00 Actual Procedures p Laparoscopic Cholecystectomy;Lysis of Adhesions - Bryson Sanchez DO s Right Robotic Laparoscopic Parital Nephrectomy, Lysis of Adhesions(Right) - Harman Dutta MD Surgeon Harman Dutta MD Engineering Director yogesh Mckeon Estimated Blood Loss 150 Findings Consistent with Post-Op Diagnosis Specimens Right renal hilar fat, fat overlying tumor, R renal mass, inferior tumor margin Description of Procedure Right robot assisted partial nephrectomy I attest to the content of the Intraoperative Record and any orders documented therein. Any exceptions are noted below.
[2019-02-14] MEDS ORDERED: ESMOLOL HCL INJ 10 MG/ML 10ML VIAL IV ONE (12:38)
[2019-02-14 13:01] LABS: Basophils # (auto) 0.02 K/uL (0-0.2); Basophils % (auto) 0.2 %; Eosinophils # (auto) 0.05 K/uL (0-0.5); Eosinophils % (auto) 0.5 %; Hematocrit (blood only) 29.7 % (37-47); Hemoglobin 9.5 g/dL (12.0-16.0); Immature Granulocytes # (auto) 0.04 K/uL (0.00-0.02); Immature Granulocytes % (auto) 0.4 %; Lymphocytes # (auto) 0.82 K/uL (1.2-3.4); Lymphocytes % (auto) 7.5 %; Mean Corpuscular Volume 83.2 fL (80-100); Mean Platelet Volume 8.5 fL (7.4-10.4); Monocytes # (auto) 0.56 K/uL (0.11-0.59); Monocytes % (auto) 5.1 %; Neutrophils # (auto) 9.49 K/uL (1.4-6.5); Neutrophils % (auto) 86.3 %; Platelet Count 227 K/uL (130-400); RDW Coefficient of Variation 15.2 % (11.5-14.5); RDW Standard Deviation 46.9 fL (36.4-46.3); Red Blood Count 3.57 M/uL (4.2-5.4); White Blood Count 10.98 K/uL (4.8-10.8)
[2019-02-14 13:16] LABS: BUN Creatinine Ratio 23.5 (10-20); Calcium 8.9 mg/dl (8.5-10.1); Creatinine Clr Calc Pharmacy 27.9 ml/min; Est GFR (African American) 42.3; Est GFR (Non-African American) 36.5; Potassium 3.6 mmol/L (3.5-5.1)
--- NOTE | 2019-02-14 13:37 | Anesthesiology Progress Note ---
Date of Service February 14, 2019 Anesthesia Post Procedure Vital Signs Vital Signs: Temp Pulse Pulse Resp BP Pulse Ox 02/14/19 13:05 37.1 C 71 16 139/63 96 02/14/19 12:55 69 16 133/72 96 02/14/19 12:45 67 16 139/66 97 02/14/19 12:35 67 15 131/61 97 02/14/19 12:28 37 C 76 17 119/60 96 02/14/19 05:40 36.8 C 71 20 137/75 95 Pain Intensity Right Abdomen: Pain Intensity: 3 Notes Mental Status: alert / awake / arousable and participated in evaluation Patient Amnestic to Procedure: Yes Nausea / Vomiting: adequately controlled Pain: adequately controlled Airway Patency, RR, SpO2: stable & adequate BP & HR: stable & adequate Hydration State: stable & adequate Anesthetic Complications: no major complications apparent and Pt Satisfied with anesthetic care
[2019-02-14] MEDS ORDERED: MoRPHine SULFATE 10 MG/ML CARP/VIAL IV PRN (13:38)
[2019-02-14] MEDS ORDERED: FAMOTIDINE 20 MG in SYRINGE 3 ML IV SCH (13:38)
[2019-02-14] MEDS: ONDANSETRON INJ 2 MG/ML 2 ML VIAL IV PRN (14:02)
[2019-02-14] MEDS ORDERED: CIPROFLOXACIN 400 MG/200 ML BAG IV SCH (15:00)
[2019-02-14] MEDS: LACTATED RINGER'S 1,000 ML IV SCH ×2 (15:52→20:51)
[2019-02-14] MEDS: ACETAMINOPHEN 1,000 MG/100 ML VIAL IV SCH ×2 (15:53→21:25)
[2019-02-14] MEDS: OXYCODONE HCL IR 5 MG TAB (IMMEDIATE RELEASE) PO PRN (16:07)
[2019-02-14] MEDS: DOCUSATE SODIUM 100 MG CAP PO SCH (20:51)
[2019-02-14] MEDS: GABAPENTIN 100 MG CAP PO SCH (20:52)
[2019-02-14] MEDS: FOLIC ACID 1 MG TAB PO SCH (20:52)
[2019-02-14] MEDS: CALCIUM 600MG + VIT D 400 IU TAB PO SCH (20:53)
[2019-02-14] MEDS ORDERED: HEPARIN SOD 5,000 UNIT/0.5 ML VIAL SQ SCH (21:00)
[2019-02-15] MEDS: ZOLPIDEM TARTRATE 5 MG TAB PO PRN ×2 (01:24→23:44)
[2019-02-15] MEDS: LACTATED RINGER'S 1,000 ML IV SCH ×3 (04:48→20:26)
[2019-02-15] MEDS: ACETAMINOPHEN 1,000 MG/100 ML VIAL IV SCH ×3 (04:48→21:33)
[2019-02-15 06:32] LABS: Basophils # (auto) 0.02 K/uL (0-0.2); Basophils % (auto) 0.3 %; Eosinophils # (auto) 0.22 K/uL (0-0.5); Hematocrit (blood only) 27.8 % (37-47); Hemoglobin 9.1 g/dL (12.0-16.0); Immature Granulocytes # (auto) 0.02 K/uL (0.00-0.02); Immature Granulocytes % (auto) 0.3 %; Lymphocytes # (auto) 1.39 K/uL (1.2-3.4); Lymphocytes % (auto) 19.1 %; Mean Corpuscular Hgb Conc 32.7 g/dL (32-36); Mean Platelet Volume 8.8 fL (7.4-10.4); Monocytes # (auto) 0.72 K/uL (0.11-0.59); Monocytes % (auto) 9.9 %; Neutrophils # (auto) 4.92 K/uL (1.4-6.5); Neutrophils % (auto) 67.4 %; Platelet Count 223 K/uL (130-400); RDW Coefficient of Variation 15.4 % (11.5-14.5); RDW Standard Deviation 46.9 fL (36.4-46.3); Red Blood Count 3.35 M/uL (4.2-5.4); White Blood Count 7.29 K/uL (4.8-10.8)
--- NOTE | 2019-02-15 06:34 | Operative Report ---
DATE OF OPERATION: 02/14/2019 PREOPERATIVE DIAGNOSIS: Right anterior 3.5 cm renal mass. POSTOPERATIVE DIAGNOSIS: Right anterior 3.5 cm renal mass. PROCEDURE: Right-sided robot-assisted laparoscopic partial nephrectomy. SURGEON: Harman Dutta MD CATTLE MANAGER: Donald Correa DO and ANNA Adams. ANESTHESIA: General anesthesia with endotracheal intubation plus local at port sites. SPECIMENS SENT TO PATHOLOGY: Right renal hilar fat, fat overlying tumor, right renal mass, right inferior renal margin. DRAINS LEFT IN PLACE: Include a #10 GITA drain in the right pericolic gutter and a Mccollum catheter to gravity drainage. ESTIMATED BLOOD LOSS: 150 mL COMPLICATIONS: None. FINDINGS: Excellent hemostasis after completion of case, 32 minutes of warm ischemia time, friable tissue inferior to the tumor felt to represent a questionable and the cut necrotic or scarred area on CT scan resected on second pass as margin to ensure lack of tumor. BRIEF HISTORY: Ms. Hobbs is a pleasant 78-year-old female who I followed in the past for history of urinary tract infections and recurrent stone disease, found to have a suspicious anterior right renal mass on CT imaging for abdominal pain and discomfort. She was also felt to have an inflamed gallbladder and simultaneous laparoscopic cholecystectomy by Dr. Sanchez is being performed today. Please see his operative report for his portion of the case. Please see urology H and P for further details regarding urologic care history. After discussion of risks and benefits of various forms of management, simultaneous right robotic partial nephrectomy is planned today. Intravenous Tylenol was provided preoperatively for analgesia and the patient has been bridged from her Coumadin with Lovenox. SCDs were used for DVT prophylaxis and intravenous antibiotics provided for antimicrobial prophylaxis. DESCRIPTION OF PROCEDURE: The patient was properly identified and brought into the operative suite after identification of appropriate consent of the chart. General anesthesia with endotracheal intubation was initiated. The patient was prepped and draped in a right flank up flexed and well-padded position on the bed for a partial nephrectomy. Dr. Sanchez was present for access to the abdomen. All port sites were anesthetized with local prior to incision. A 12-mm incision was made for the camera port and the abdomen was entered under direct visualization through a visual obturator using a 0 degree laparoscope. Unfortunately, adhesions and some bowel were present and a clean entry into the abdomen was not felt to be feasible. No evidence of any bowel or vascular injury or other injuries to the intra-abdominal anatomy were appreciated on entry to the abdomen and a laparoscopic inspection of abdominal contents after access had been gained. A second 12-mm incision was made for the inferior most marketing assistant retail division port and brought down into the abdomen in the right lower quadrant, again using a visual obturator and a 0-degree laparoscope. Unfortunately, again a second area of adhesions including bowel were present and abdomen could not be cleanly entered. Both trocars were left in situ. Dr. Sanchez then made an incision in the superior midline and a Crystal port was used to gain access to the abdomen. The inferior most aspects of the abdomen were inspected and a lysis of adhesions was undertaken by Dr. Sanchez followed by a laparoscopic cholecystectomy. Please see his portion of the operative report for further details. Two 7 mm robotic ports were also placed. A 5 mm port was placed across the abdomen by the general surgery service as well. After their portion of the case was complete, the robot was brought in and docked. The 30-degree down lens was used to visualize intra-abdominal contents. Remaining hepatic attachments, which had been present were divided using hot scissors in the liver was easily able to be retracted medially to allow for access to the retroperitoneum. Colon had been well dissected away from the plane of dissection and adhesions in the retroperitoneum around the bowel consistent with the patient's previous anatomic findings were noted. The duodenum was identified and kocherized medially. The ureter and psoas muscles were also identified allowing for lateral traction on the kidney. 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 Lateral traction on the kidney was provided until the hilum was encountered on cephalad dissection. A single renal artery and vein were well defined circumscribed completely and sufficient superior dissection was carried out to the level of the hilum to allow for good control with the bulldog clamps. An endoscopic ultrasound was used to define the area of the tumor, which was noted to be overlying the hilar mass had been present on CT scan imaging beforehand. Some redundant fat at the level of the hilar dissection was excised and sent for pathologic analysis as right renal hilar fat. The fat around the Gerota's fascia was sharply entered and the kidney was defatted overlying the tumor. A portion of this fat was excised and left within the pelvis for retrieval at the end of the case within an EndoCatch bag. Tumor was well defined and noted to be consistent with preoperative imaging. The capsule was scored and mannitol was provided. Sutures had been loaded into the abdomen prior to clamping of the renal hilum. After mannitol was officially flushed through and the tumor was felt to be well defined, 2 short bulldog clamps were placed on the renal artery and a single bulldog clamp placed on the renal vein. The tumor was excised deeply and as expected, the collecting system was entered as well as deeper veins, which had been appreciated on imaging. In the cephalad location, a renal cyst abutting the tumor was entered and used for the plane of dissection has been previously planned. However, at the inferior most aspect of the dissection, some fatty appearing tissue was present, which was not felt to be most consistent with renal parenchyma. This was consistent with an area of apparent scarring on CT scan imaging. The remainder of the tumor was divided and the deep aspects of the dissection were appreciated to be clean. This was placed within the pelvis with the fat which had been excised for retrieval at the end of the case. However, in the inferior most aspect of the abnormal-appearing friable fat persistent residual tissue was noted. Seeing the relatively abnormal appearance of this tissue and it not being clear if it was associated with the tumor, a second margin was taken, excising all abnormal-appearing tissue until the normal renal parenchyma was identified. This friable tissue was folded within a Surgicel to avoid spillage and then removed by the marketing assistant retail division via the marketing assistant retail division port to be sent for permanent analysis. A V-Loc suture backed with a Lapra-Ty and a Weck clip was used anchoring on the capsule to oversew the deep aspect of the dissection and closed the caliceal system and deep veins in a running fashion. This was anchored again outside the renal capsule and the inferior most aspect of the kidney. A second V-Loc suture was used in a running fashion with Weck clips as pledgets to close the renal defect. Unfortunately, in the cephalad location the sutures were noted to be torn through the capsule. This was able to be partially replaced with excellent hemostasis after completion of the case. When the renal defect was mostly closed, the renal vein and artery were unclamped. A total of 32 minutes of warm ischemia time, mostly due to the knee resection of the inferior most aspect of the tumor was noted to be present. FloSeal was placed within the deep aspect of the defect prior to completion of closure and covered with a Surgicel. The kidney was inspected and noted to be hemostatic. A second Surgicel was placed over this followed by a Tisseel tissue sealant. The specimens have been bagged prior to hemostatic agents being applied. Additional FloSeal was also placed at the level of the hilar vessels. The additional V-Loc suture was then used to close the perinephric fat at the level of the Gerota's fascia. [address] removed from the abdomen, and sponge and needle counts were noted to be correct. The robotic arm was removed from the inferior most aspect and a GIAT drain was brought in via this port and placed within the right paracolic gutter. The string to the EndoCatch bags were brought out through the inferior most 12 mm ports. Ports were then removed and excess carbon dioxide gas was removed from the abdomen. The inferior port was enlarged sufficiently to allow for easy passage of the specimen bag. The patient was removed from flexion and 0 Vicryl sutures on UR-5 and UR-6 needles were used to close the fascia at all the 12-mm port sites. The extraction port was closed in a running fashion using a 0 Vicryl suture on a UR-5 needle. Subcutaneous tissue at this level was closed using 3-0 Vicryl. A 2-0 silk was used to secure the drain in place. A 4-0 Monocryl and Dermabond were placed at the level of the skin for the remaining dressings. After this was complete, anesthesia was reversed and the patient was transferred to the recovery room in stable condition. FOLLOWUP CARE: The patient will be admitted to the floor for standard postoperative management. I attest to the content of the Intraoperative Record and any orders documented therein. Any exceptions are noted below. DAX
[2019-02-15 07:01] LABS: BUN Creatinine Ratio 21.2 (10-20); Calcium 8.9 mg/dl (8.5-10.1); Creatinine Clr Calc Pharmacy 26.4 ml/min; Est GFR (African American) 39.5; Est GFR (Non-African American) 34.1; Potassium 3.4 mmol/L (3.5-5.1)
--- NOTE | 2019-02-15 07:03 | Urology Progress Note ---
Date of Service February 15, 2019 Assessment & Plan (1) Renal mass: A/P 78 yo female POD#1 s/p R robotic partial nephrectomy, lap patrick. Doing well. Some abdominal distension s/p lap ELLEN - will advance to full liquids for now, dulcolax supp this AM. Increase activity, will order PT consult. Monitor labwork, hold on transfusion unless Hb < 8. Monitor GITA output, acceptable for now. Seo out. Care d/w patient, questions answered. Patient lives alone, anticipate DC home over the weekend. Subjective 78 yo female POD#1 s/p R robotic partial nephrectomy, lap patrick. She notes she was OOB yesterday, no ambulation or BM yet. Some belching, fair appetite, darian clears without emesis. Her pain is controlled, in good spirits, seo removed this AM. Intraop events reviewed. Constitutional: no fever and no chills Respiratory: no hemoptysis Cardiovascular: no chest pain Gastrointestinal: + abdominal pain and + bloating; no nausea and no vomiting Integumentary: no acne and no boil Neurologic: no paralysis and no numbness Psychiatric: no hopelessness Endocrine: + fatigue Physical Exam Vital Signs (Past 24 Hours): Last Vital Signs Temp 36.4 C L 02/15/19 03:00 Pulse 72 02/15/19 03:00 Resp 20 02/15/19 03:00 BP 127/65 02/15/19 03:00 Pulse Ox 90 02/15/19 03:00 Constitutional: well developed and well nourished; no acute distress Neck: trachea midline; no anterior neck swelling Respiratory: no respiratory distress and does not use accessory muscles Gastrointestinal (Abdomen): Inspection/Auscultation: + abdomen distended (moderate) Percussion/Palpation: abdomen soft; abdomen nontender and no guarding inc c/d/i Skin: normal turgor Neurologic: awake; not obtunded Psychiatric: Orientation: alert and oriented x 3 Lymphatic: no lymphadenopathy Results & Data Laboratory Results Laboratory Results - last 48 hr 02/14/19 02/14/19 02/14/19 05:27 05:27 12:42 WBC 10.98 H RBC 3.57 L Hgb 9.5 L Hct 29.7 L MCV 83.2 MCH 26.6 MCHC 32.0 RDW Std Deviation 46.9 H RDW Coeff of Anahi 15.2 H Plt Count 227 MPV 8.5 Immature Gran % (Auto) 0.4 Neut % (Auto) 86.3 Lymph % (Auto) 7.5 [place] % (Auto) 5.1 Eos % (Auto) 0.5 Baso % (Auto) 0.2 Immature Gran # (Auto) 0.04 H Neut # (Auto) 9.49 H Lymph # (Auto) 0.82 L [place] # (Auto) 0.56 Eos # (Auto) 0.05 Baso # (Auto) 0.02 PT 11.1 INR 1.1 APTT 26.3 PTT Ratio 1.0 Sodium Potassium Chloride Carbon Dioxide Anion Gap BUN Creatinine Est Cr Clr Drug Dosing Est GFR ( Amer) Est GFR (Non-Af Amer) BUN/Creatinine Ratio Glucose Calcium Blood Type A Positive Antibody Screen POSITIVE A Antibody Identification Anti-E Crossmatch See Detail 02/14/19 02/15/19 02/15/19 12:42 06:07 06:07 WBC 7.29 RBC 3.35 L Hgb 9.1 L Hct 27.8 L MCV 83.0 MCH 27.2 MCHC 32.7 RDW Std Deviation 46.9 H RDW Coeff of Anahi 15.4 H Plt Count 223 MPV 8.8 Immature Gran % (Auto) 0.3 Neut % (Auto) 67.4 Lymph % (Auto) 19.1 [place] % (Auto) 9.9 Eos % (Auto) 3.0 Baso % (Auto) 0.3 Immature Gran # (Auto) 0.02 Neut # (Auto) 4.92 Lymph # (Auto) 1.39 [place] # (Auto) 0.72 H Eos # (Auto) 0.22 Baso # (Auto) 0.02 PT INR APTT PTT Ratio Sodium 137 137 Potassium 3.6 3.4 L Chloride 107 105 Carbon Dioxide 25 25 Anion Gap 6.0 7.0 BUN 33 H 31 H Creatinine 1.39 H 1.47 H Est Cr Clr Drug Dosing 27.9 26.4 Est GFR ( Amer) 42.3 39.5 Est GFR (Non-Af Amer) 36.5 34.1 BUN/Creatinine Ratio 23.5 H 21.2 H Glucose 185 H 119 H Calcium 8.9 8.9 Blood Type Antibody Screen Antibody Identification Crossmatch
[2019-02-15] MEDS ORDERED: BISACODYL 10 MG SUPP PR STA (07:07)
--- NOTE | 2019-02-15 08:15 | Anesthesiology Progress Note ---
Date of Service February 15, 2019 Anesthesia Post Procedure Vital Signs Vital Signs: Temp Pulse Pulse Resp BP BP Pulse Ox 02/15/19 08:04 36.7 C 69 18 133/71 94 02/15/19 03:00 36.4 C L 72 20 127/65 90 02/14/19 23:00 36.5 C 67 20 136/47 L 93 02/14/19 16:40 65 17 119/65 94 02/14/19 15:36 67 17 131/63 96 02/14/19 14:51 36.4 C L 68 17 127/66 96 02/14/19 14:08 36.4 C L 67 16 132/64 95 02/14/19 13:30 36.4 C L 71 14 131/57 L 95 02/14/19 13:05 37.1 C 71 16 139/63 96 02/14/19 12:55 69 16 133/72 96 02/14/19 12:45 67 16 139/66 97 02/14/19 12:35 67 15 131/61 97 02/14/19 12:28 37 C 76 17 119/60 96 Pain Intensity Right Abdomen: Pain Intensity: 2 Notes Mental Status: alert / awake / arousable and participated in evaluation Patient Amnestic to Procedure: Yes Nausea / Vomiting: adequately controlled Pain: adequately controlled Airway Patency, RR, SpO2: stable & adequate BP & HR: stable & adequate Hydration State: stable & adequate Anesthetic Complications: no major complications apparent and Pt Satisfied with anesthetic care
[2019-02-15] MEDS ORDERED: LOSARTAN POTASSIUM 25 MG TAB PO SCH (09:00)
[2019-02-15] MEDS ORDERED: TRIAMTERENE/HCTZ 37.5/25MG CAP PO SCH (09:00)
[2019-02-15] MEDS: GABAPENTIN 100 MG CAP PO SCH ×2 (09:29→20:15)
[2019-02-15] MEDS: PANTOprazole 40 MG TAB PO SCH (09:29)
[2019-02-15] MEDS: CHOLECALCIFEROL 1,000 UNITS TAB PO SCH (09:29)
[2019-02-15] MEDS: FOLIC ACID 1 MG TAB PO SCH ×2 (09:29→20:15)
[2019-02-15] MEDS: DOCUSATE SODIUM 100 MG CAP PO SCH ×2 (09:29→20:15)
--- NOTE | 2019-02-15 09:36 | Surgery Progress Note ---
Date of Service February 15, 2019 Assessment & Plan (1) Renal mass: POD 1 lap patrick, partial nephrectomy advance diet per primary Dr. Cobian covering the weekend Subjective tolerating full liquids, good pain control Physical Exam Vital Signs (Past 24 Hours): Last Vital Signs Temp 36.7 C 02/15/19 08:04 Pulse 69 02/15/19 08:04 Resp 18 02/15/19 08:04 BP 133/71 02/15/19 08:04 Pulse Ox 94 02/15/19 08:04 Gastrointestinal (Abdomen): Inspection/Auscultation: + abdomen distended (minimal) Percussion/Palpation: abdomen soft
[2019-02-15] MEDS: CYANOCOBALAMIN 500 MCG TABLET (VITAMIN B-12) PO SCH (09:59)
[2019-02-15] MEDS: OXYCODONE HCL IR 5 MG TAB (IMMEDIATE RELEASE) PO PRN ×2 (10:44→20:07)
[2019-02-15] MEDS: ENOXAPARIN INJ 40 MG/0.4 ML SYR SQ SCH (20:16)
[2019-02-15] MEDS: CALCIUM 600MG + VIT D 400 IU TAB PO SCH (20:16)
[2019-02-15] MEDS ORDERED: ENOXAPARIN INJ 30 MG/0.3 ML SYR SQ SCH (21:00)
[2019-02-16] MEDS: LACTATED RINGER'S 1,000 ML IV SCH ×3 (04:41→21:12)
[2019-02-16] MEDS: ACETAMINOPHEN 1,000 MG/100 ML VIAL IV SCH ×3 (05:50→21:13)
[2019-02-16 07:45] LABS: Basophils # (auto) 0.02 K/uL (0-0.2); Basophils % (auto) 0.3 %; Eosinophils # (auto) 0.17 K/uL (0-0.5); Eosinophils % (auto) 2.3 %; Hematocrit (blood only) 28.5 % (37-47); Hemoglobin 9.3 g/dL (12.0-16.0); Immature Granulocytes # (auto) 0.02 K/uL (0.00-0.02); Immature Granulocytes % (auto) 0.3 %; Lymphocytes # (auto) 0.97 K/uL (1.2-3.4); Lymphocytes % (auto) 13.3 %; Mean Corpuscular Hgb Conc 32.6 g/dL (32-36); Mean Corpuscular Volume 82.4 fL (80-100); Mean Platelet Volume 8.7 fL (7.4-10.4); Monocytes # (auto) 0.73 K/uL (0.11-0.59); Neutrophils # (auto) 5.36 K/uL (1.4-6.5); Neutrophils % (auto) 73.8 %; Platelet Count 236 K/uL (130-400); RDW Coefficient of Variation 15.3 % (11.5-14.5); RDW Standard Deviation 46.4 fL (36.4-46.3); Red Blood Count 3.46 M/uL (4.2-5.4); White Blood Count 7.27 K/uL (4.8-10.8)
[2019-02-16] MEDS: ONDANSETRON INJ 2 MG/ML 2 ML VIAL IV PRN (07:51)
[2019-02-16 08:21] LABS: BUN Creatinine Ratio 15.8 (10-20); Calcium 9.5 mg/dl (8.5-10.1); Creatinine Clr Calc Pharmacy 30.8 ml/min; Est GFR (African American) 47.6; Est GFR (Non-African American) 41.1; Potassium 3.8 mmol/L (3.5-5.1)
[2019-02-16] MEDS: FOLIC ACID 1 MG TAB PO SCH ×2 (08:51→21:13)
[2019-02-16] MEDS: CYANOCOBALAMIN 500 MCG TABLET (VITAMIN B-12) PO SCH (08:51)
[2019-02-16] MEDS: PANTOprazole 40 MG TAB PO SCH (08:51)
[2019-02-16] MEDS: DOCUSATE SODIUM 100 MG CAP PO SCH ×2 (08:51→21:13)
[2019-02-16] MEDS: ENOXAPARIN INJ 40 MG/0.4 ML SYR SQ SCH (08:52)
[2019-02-16] MEDS: CHOLECALCIFEROL 1,000 UNITS TAB PO SCH (08:52)
[2019-02-16] MEDS: GABAPENTIN 100 MG CAP PO SCH ×2 (08:52→21:13)
[2019-02-16] MEDS ORDERED: BISACODYL 10 MG SUPP PR STA (11:37)
--- NOTE | 2019-02-16 17:34 | Urology Progress Note ---
Date of Service February 16, 2019 Assessment & Plan (1) Renal mass: POD 2 lap patrick and robot assisted partial right nephrectomy Drain in place. Ambulating. Distension today with diet. Will have patient decrease volume. Monitor for nausea. Increase activity. Continue IS> Continue diet. On lovenox without issue.s Continue pain medication as need. Does have chronic tramadol at home. Add dulcolax suppository today. Multiple questions answered. Will continue to monitor blood pressure. Subjective tolerating full liquids but increased belching and distention. Did pass flatus earlier today. No vomiting. Pain bothersome at time. Less mobility today. No major fevers or chills. Gastrointestinal: + abdominal pain and + bloating; no nausea and no vomiting Endocrine: + fatigue Physical Exam Vital Signs (Past 24 Hours): Last Vital Signs Temp 37.3 C 02/16/19 15:19 Pulse 89 02/16/19 15:19 Resp 17 02/16/19 15:19 BP 158/72 H 02/16/19 15:19 Pulse Ox 91 02/16/19 15:19 Constitutional: well developed and well nourished; no acute distress ENMT: Mouth: + dentition abnormality and + dental restorations; no chipped teeth and no loose teeth Mallampati Class: III Neck: normal visual inspection, trachea midline and + limited neck extension; no anterior neck swelling Respiratory: normal respiratory effort; no respiratory distress and does not use accessory muscles Auscultation: lungs clear to auscultation bilaterally Cardiovascular: Rate/Rhythm: regular rate Vessels: no carotid bruit Extremities: no edema Gastrointestinal (Abdomen): Inspection/Auscultation: + abdomen distended (minimal) Percussion/Palpation: abdomen soft; abdomen nontender and no guarding Musculoskeletal: Spine: + limited cervical ROM; no pain with cervical ROM Skin: normal turgor Neurologic: moves all extremities and awake; not obtunded Psychiatric: Orientation: alert and oriented x 3 Lymphatic: no lymphadenopathy
[2019-02-16] MEDS: OXYCODONE HCL IR 5 MG TAB (IMMEDIATE RELEASE) PO PRN (21:12)
[2019-02-16] MEDS: CALCIUM 600MG + VIT D 400 IU TAB PO SCH (21:13)
[2019-02-16] MEDS: ZOLPIDEM TARTRATE 5 MG TAB PO PRN (23:19)
[2019-02-17] MEDS: ONDANSETRON INJ 2 MG/ML 2 ML VIAL IV PRN ×2 (04:27→21:58)
[2019-02-17] MEDS: ACETAMINOPHEN 1,000 MG/100 ML VIAL IV SCH ×3 (05:34→21:37)
[2019-02-17] MEDS: LACTATED RINGER'S 1,000 ML IV SCH ×3 (05:34→20:24)
[2019-02-17 06:52] LABS: Basophils # (auto) 0.02 K/uL (0-0.2); Basophils % (auto) 0.4 %; Eosinophils # (auto) 0.19 K/uL (0-0.5); Eosinophils % (auto) 3.4 %; Hematocrit (blood only) 29.7 % (37-47); Hemoglobin 9.4 g/dL (12.0-16.0); Immature Granulocytes # (auto) 0.03 K/uL (0.00-0.02); Immature Granulocytes % (auto) 0.5 %; Lymphocytes # (auto) 1.06 K/uL (1.2-3.4); Lymphocytes % (auto) 18.9 %; Mean Corpuscular Hgb Conc 31.6 g/dL (32-36); Mean Corpuscular Volume 83.7 fL (80-100); Mean Platelet Volume 8.7 fL (7.4-10.4); Monocytes # (auto) 0.85 K/uL (0.11-0.59); Monocytes % (auto) 15.1 %; Neutrophils # (auto) 3.47 K/uL (1.4-6.5); Neutrophils % (auto) 61.7 %; Platelet Count 279 K/uL (130-400); RDW Coefficient of Variation 15.4 % (11.5-14.5); RDW Standard Deviation 47.6 fL (36.4-46.3); Red Blood Count 3.55 M/uL (4.2-5.4); White Blood Count 5.62 K/uL (4.8-10.8)
[2019-02-17 07:26] LABS: BUN Creatinine Ratio 15.6 (10-20); Calcium 9.2 mg/dl (8.5-10.1); Creatinine Clr Calc Pharmacy 34.1 ml/min; Est GFR (African American) 53.7; Est GFR (Non-African American) 46.3; Potassium 3.8 mmol/L (3.5-5.1)
[2019-02-17] MEDS: GABAPENTIN 100 MG CAP PO SCH ×2 (08:50→20:11)
[2019-02-17] MEDS: DOCUSATE SODIUM 100 MG CAP PO SCH ×2 (08:50→20:11)
[2019-02-17] MEDS: CYANOCOBALAMIN 500 MCG TABLET (VITAMIN B-12) PO SCH (08:51)
[2019-02-17] MEDS: PANTOprazole 40 MG TAB PO SCH (08:51)
[2019-02-17] MEDS: CHOLECALCIFEROL 1,000 UNITS TAB PO SCH (08:51)
[2019-02-17] MEDS: ENOXAPARIN INJ 40 MG/0.4 ML SYR SQ SCH (08:51)
[2019-02-17] MEDS: FOLIC ACID 1 MG TAB PO SCH ×2 (08:52→20:11)
[2019-02-17] MEDS ORDERED: BISACODYL 10 MG SUPP PR STA (10:08)
[2019-02-17] MEDS ORDERED: BISACODYL 10 MG SUPP PR PRN (12:41)
[2019-02-17] MEDS: OXYCODONE HCL IR 5 MG TAB (IMMEDIATE RELEASE) PO PRN ×2 (12:46→18:19)
--- NOTE | 2019-02-17 12:51 | Urology Progress Note ---
Date of Service February 17, 2019 Assessment & Plan (1) Renal mass: POD 3 lap patrick and robot assisted partial right nephrectomy Stopped diet this afternoon due to anxiety over distension. No vomiting. Had very small BM with suppository. Continues to have flatus. Increase activity. Continue IS> On lovenox without issue.s Continue pain medication as need. Will monitor for now. Discussed need for time, ambulation, and stimulation in order to resolve issues. Will monitor. Subjective Passing flatus reg. Anxious about no BM. Now refusing food due to worry. Has been ambulating more. Had very small liquid BM after suppository. No vomiting. Pain bothersome at time. No major fevers or chills. Physical Exam Vital Signs (Past 24 Hours): Last Vital Signs Temp 37.0 C 02/17/19 07:39 Pulse 87 02/17/19 07:39 Resp 16 02/17/19 07:39 BP 176/81 H 02/17/19 07:39 Pulse Ox 91 02/17/19 07:39 Constitutional: well developed and well nourished; no acute distress ENMT: Mouth: + dentition abnormality and + dental restorations; no chipped teeth and no loose teeth Mallampati Class: III Neck: normal visual inspection, trachea midline and + limited neck extension; no anterior neck swelling Respiratory: normal respiratory effort; no respiratory distress and does not use accessory muscles Auscultation: lungs clear to auscultation bilaterally Cardiovascular: Rate/Rhythm: regular rate Vessels: no carotid bruit Extremities: no edema Gastrointestinal (Abdomen): Inspection/Auscultation: + abdomen distended (minimal) Percussion/Palpation: abdomen soft; abdomen nontender and no guarding Musculoskeletal: Spine: + limited cervical ROM; no pain with cervical ROM Skin: normal turgor Neurologic: moves all extremities and awake; not obtunded Psychiatric: Orientation: alert and oriented x 3 Lymphatic: no lymphadenopathy
[2019-02-17] MEDS: CALCIUM 600MG + VIT D 400 IU TAB PO SCH (20:11)
[2019-02-17] MEDS ORDERED: METOPROLOL TARTRATE 25 MG TAB PO ONE (21:30)
[2019-02-18] MEDS: ZOLPIDEM TARTRATE 5 MG TAB PO PRN ×2 (01:40→23:45)
[2019-02-18] MEDS: LACTATED RINGER'S 1,000 ML IV SCH ×3 (03:53→19:46)
[2019-02-18] MEDS: ACETAMINOPHEN 1,000 MG/100 ML VIAL IV SCH ×3 (05:18→21:55)
[2019-02-18 06:04] LABS: Basophils # (auto) 0.02 K/uL (0-0.2); Basophils % (auto) 0.3 %; Eosinophils # (auto) 0.41 K/uL (0-0.5); Eosinophils % (auto) 5.7 %; Hemoglobin 9.1 g/dL (12.0-16.0); Immature Granulocytes # (auto) 0.03 K/uL (0.00-0.02); Immature Granulocytes % (auto) 0.4 %; Lymphocytes # (auto) 1.56 K/uL (1.2-3.4); Lymphocytes % (auto) 21.6 %; Mean Corpuscular Hgb Conc 32.5 g/dL (32-36); Mean Corpuscular Volume 83.3 fL (80-100); Mean Platelet Volume 8.4 fL (7.4-10.4); Monocytes # (auto) 0.96 K/uL (0.11-0.59); Monocytes % (auto) 13.3 %; Neutrophils # (auto) 4.24 K/uL (1.4-6.5); Neutrophils % (auto) 58.7 %; Platelet Count 268 K/uL (130-400); RDW Coefficient of Variation 15.3 % (11.5-14.5); RDW Standard Deviation 46.6 fL (36.4-46.3); Red Blood Count 3.36 M/uL (4.2-5.4); White Blood Count 7.22 K/uL (4.8-10.8)
[2019-02-18 06:31] LABS: BUN Creatinine Ratio 22.8 (10-20); Calcium 8.5 mg/dl (8.5-10.1); Creatinine Clr Calc Pharmacy 42.2 ml/min; Est GFR (African American) 69.6; Est GFR (Non-African American) 60.1; Potassium 3.8 mmol/L (3.5-5.1)
[2019-02-18] MEDS: CHOLECALCIFEROL 1,000 UNITS TAB PO SCH (07:54)
[2019-02-18] MEDS: FOLIC ACID 1 MG TAB PO SCH ×2 (07:54→21:51)
[2019-02-18] MEDS: CYANOCOBALAMIN 500 MCG TABLET (VITAMIN B-12) PO SCH (07:54)
[2019-02-18] MEDS: DOCUSATE SODIUM 100 MG CAP PO SCH ×2 (07:57→21:53)
[2019-02-18] MEDS: ENOXAPARIN INJ 40 MG/0.4 ML SYR SQ SCH (07:57)
[2019-02-18] MEDS: PANTOprazole 40 MG TAB PO SCH (07:57)
--- NOTE | 2019-02-18 08:09 | Urology Progress Note ---
Date of Service February 18, 2019 Assessment & Plan (1) Renal mass: A/P 78 yo female POD#4 s/p R robotic partial nephrectomy, lap patrick, lap ELLEN with likely ileus. I suspect a postop ileus. Will check a KUB today. Ambulate in halls, dulcolax BID, taking chewing gum. Labwork stable, expect improvement with time and activity. Pathophysiology reviewed. Clears for now. Will advance diet with improvement in GI activity. Subjective 78 yo female POD#4 s/p R partial nephrectomy, lap patrick, lap ELLEN. She notes persistent abdominal distension, + belching, minimal bowel activity with supp. She is ambulatory in halls, pain controlled, anxious about GI condition. She denies mann emesis, + bloating, limiting PO due to distension. Past notes and weekend events noted, some HTN noted as well, labwork and GITA OP stable. She remains on therapeutic Lovenox. Constitutional: no fever and no chills Respiratory: no chest congestion and no hemoptysis Cardiovascular: no chest pain Gastrointestinal: + abdominal pain and + bloating; no nausea and no vomiting Integumentary: no acne and no boil Neurologic: no paralysis and no numbness Psychiatric: + change in appetite Endocrine: + fatigue Physical Exam Vital Signs (Past 24 Hours): Last Vital Signs Temp 37.1 C 02/18/19 07:05 Pulse 80 02/18/19 07:05 Resp 17 02/18/19 07:05 BP 179/88 H 02/18/19 07:05 Pulse Ox 92 02/18/19 07:05 Constitutional: well developed and well nourished; no acute distress ENMT: Ears: no hearing impairment Neck: trachea midline; no anterior neck swelling Respiratory: no respiratory distress and does not use accessory muscles Gastrointestinal (Abdomen): Inspection/Auscultation: + abdomen distended (increased from prior exam) Percussion/Palpation: abdomen soft; abdomen nontender and no guarding inc c/d/i Skin: normal turgor Neurologic: awake; not obtunded Psychiatric: Orientation: alert and oriented x 3 Lymphatic: no lymphadenopathy Results & Data Laboratory Results Laboratory Results - last 48 hr 02/14/19 02/16/19 02/17/19 05:27 07:33 06:24 WBC 5.62 RBC 3.55 L Hgb 9.4 L Hct 29.7 L MCV 83.7 MCH 26.5 MCHC 31.6 L RDW Std Deviation 47.6 H RDW Coeff of Anahi 15.4 H Plt Count 279 MPV 8.7 Immature Gran % (Auto) 0.5 Neut % (Auto) 61.7 Lymph % (Auto) 18.9 [place] % (Auto) 15.1 Eos % (Auto) 3.4 Baso % (Auto) 0.4 Immature Gran # (Auto) 0.03 H Neut # (Auto) 3.47 Lymph # (Auto) 1.06 L [place] # (Auto) 0.85 H Eos # (Auto) 0.19 Baso # (Auto) 0.02 Sodium 141 Potassium 3.8 Chloride 110 H Carbon Dioxide 26 Anion Gap 5.0 BUN 20 H Creatinine 1.26 H Est Cr Clr Drug Dosing 30.8 Est GFR ( Amer) 47.6 Est GFR (Non-Af Amer) 41.1 BUN/Creatinine Ratio 15.8 Glucose 120 H Calcium 9.5 Crossmatch See Detail 02/17/19 02/18/19 02/18/19 06:24 05:51 05:51 WBC 7.22 RBC 3.36 L Hgb 9.1 L Hct 28.0 L MCV 83.3 MCH 27.1 MCHC 32.5 RDW Std Deviation 46.6 H RDW Coeff of Anahi 15.3 H Plt Count 268 MPV 8.4 Immature Gran % (Auto) 0.4 Neut % (Auto) 58.7 Lymph % (Auto) 21.6 [place] % (Auto) 13.3 Eos % (Auto) 5.7 Baso % (Auto) 0.3 Immature Gran # (Auto) 0.03 H Neut # (Auto) 4.24 Lymph # (Auto) 1.56 [place] # (Auto) 0.96 H Eos # (Auto) 0.41 Baso # (Auto) 0.02 Sodium 141 140 Potassium 3.8 3.8 Chloride 109 H 108 H Carbon Dioxide 27 23 Anion Gap 5.0 9.0 BUN 18 21 H Creatinine 1.14 0.92 Est Cr Clr Drug Dosing 34.1 42.2 Est GFR ( Amer) 53.7 69.6 Est GFR (Non-Af Amer) 46.3 60.1 BUN/Creatinine Ratio 15.6 22.8 H Glucose 102 H 81 Calcium 9.2 8.5 Crossmatch
--- NOTE | 2019-02-18 08:38 | Surgery Progress Note ---
Date of Service February 18, 2019 Assessment & Plan (1) Cholecystitis: pod 4 awaiting for bowel funtion to resume no acute surgical issues will continue to follow along. Subjective pt still feeling "bloated" with mild nausea. no appetite. pain control adequate. Physical Exam Vital Signs (Past 24 Hours): Last Vital Signs Temp 37.1 C 02/18/19 07:05 Pulse 80 02/18/19 07:05 Resp 17 02/18/19 07:05 BP 179/88 H 02/18/19 07:05 Pulse Ox 92 02/18/19 07:05 Physical Exam: alert. nad abd: soft. extected tenderness. wounds look good.
--- NOTE | 2019-02-18 10:02 | XRay Report ---
KUB HISTORY: Acute generalized abdominal pain with abdominal distention abdominal distension COMPARISON: CT abdomen and pelvis 12/13/2018, acute abdominal series radiographs 08/15/2018 FINDINGS: Surgical clips and suture material noted about the right hemiabdomen. Air is noted within the large b owel. There is a dilated air-filled loop of small bowel within the right lower abdomen which measures 4.8 cm transversely. No pneumatosis or pneumoperitoneum. There is a linear 12.9 cm radiodense struct ure about the lateral right abdomen, possibly external to the patient. Correlate clinically. Degenera tive changes of the spine, pelvis and hips. No urolith identified. IMPRESSION: 1. Air is noted within loops of both large and small bowel. Dilated loop of small bowel about the rig ht mid and lower abdomen may reflect partial small bowel obstruction or ileus. Follow-up recommended. 2. Postoperative changes of the abdomen. 3. No definite pneumatosis or pneumoperitoneum. Electronically signed by: Kenan Fritz M.D. 02/18/2019 10:01 AM
[2019-02-18] MEDS: GABAPENTIN 100 MG CAP PO SCH ×2 (10:31→21:53)
[2019-02-18] MEDS: BISACODYL 10 MG SUPP PR SCH ×2 (10:31→21:05)
[2019-02-18] MEDS: OXYCODONE HCL IR 5 MG TAB (IMMEDIATE RELEASE) PO PRN (19:43)
[2019-02-18] MEDS: CALCIUM 600MG + VIT D 400 IU TAB PO SCH (21:04)
[2019-02-18] MEDS: ONDANSETRON INJ 2 MG/ML 2 ML VIAL IV PRN (21:06)
[2019-02-19] MEDS: LACTATED RINGER'S 1,000 ML IV SCH (03:20)
[2019-02-19] MEDS: ACETAMINOPHEN 1,000 MG/100 ML VIAL IV SCH ×3 (05:32→22:12)
[2019-02-19 07:42] LABS: Basophils # (auto) 0.02 K/uL (0-0.2); Basophils % (auto) 0.2 %; Eosinophils # (auto) 0.64 K/uL (0-0.5); Hematocrit (blood only) 28.1 % (37-47); Hemoglobin 9.2 g/dL (12.0-16.0); Immature Granulocytes # (auto) 0.09 K/uL (0.00-0.02); Immature Granulocytes % (auto) 1.1 %; Lymphocytes # (auto) 1.47 K/uL (1.2-3.4); Lymphocytes % (auto) 18.3 %; Mean Corpuscular Hgb Conc 32.7 g/dL (32-36); Mean Corpuscular Volume 83.6 fL (80-100); Mean Platelet Volume 8.4 fL (7.4-10.4); Monocytes # (auto) 1.15 K/uL (0.11-0.59); Monocytes % (auto) 14.3 %; Neutrophils # (auto) 4.68 K/uL (1.4-6.5); Neutrophils % (auto) 58.1 %; Platelet Count 322 K/uL (130-400); RDW Coefficient of Variation 15.1 % (11.5-14.5); RDW Standard Deviation 45.9 fL (36.4-46.3); Red Blood Count 3.36 M/uL (4.2-5.4); White Blood Count 8.05 K/uL (4.8-10.8)
--- NOTE | 2019-02-19 07:43 | Surgery Progress Note ---
Date of Service February 19, 2019 Assessment & Plan (1) Cholecystitis: pod 5 bowel function returning tolerating clears will continue to follow along Subjective multiple loose BMs, less bloated Physical Exam Vital Signs (Past 24 Hours): Last Vital Signs Temp 36.8 C 02/18/19 23:30 Pulse 89 02/18/19 23:30 Resp 18 02/18/19 23:30 BP 174/77 H 02/18/19 23:30 Pulse Ox 92 02/18/19 23:30 Gastrointestinal (Abdomen): Inspection/Auscultation: + abdomen distended Percussion/Palpation: abdomen soft
[2019-02-19 08:10] LABS: BUN Creatinine Ratio 21.3 (10-20); Calcium 8.7 mg/dl (8.5-10.1); Creatinine Clr Calc Pharmacy 47.4 ml/min; Potassium 3.4 mmol/L (3.5-5.1)
--- NOTE | 2019-02-19 08:18 | Urology Progress Note ---
Date of Service February 19, 2019 Assessment & Plan (1) Renal mass: A/P 78 yo female POD#5 s/p R robotic partial nephrectomy, lap patrick, lap ELLEN with likely ileus, improving. GI function seems to be turning the corner. Regular diet, HTIVF, ambulation. If tolerates breakfast and lunch, consider DC home in afternoon. DC activity limitations reviewed. Pathology report available - reviewed with patient, will provide copy as outpatient. Subjective 78 yo female POD#5 s/p R partial nephrectomy, lap patrick, lap ELLEN. She notes she began to have liquid BMs yesterday after interview with a decrease in abdominal distension. Appetite remains poor, no emesis, + ambulatory, pain well controlled. Labs stable, GITA drainage stable, KUB images reviewed - dilated bowel c/w ileus. Patient in better spirits today. Constitutional: no fever and no chills Respiratory: no cough and no hemoptysis Cardiovascular: no chest pain Gastrointestinal: + diarrhea/loose stools; no abdominal pain, no belching, no nausea and no vomiting Integumentary: no acne and no boil Neurologic: no paralysis and no numbness Allergy / Immunological: no tongue swelling Physical Exam Vital Signs (Past 24 Hours): Last Vital Signs Temp 37.0 C 02/19/19 07:45 Pulse 74 02/19/19 07:45 Resp 16 02/19/19 07:45 BP 184/65 H 02/19/19 07:45 Pulse Ox 94 02/19/19 07:45 Constitutional: well developed and well nourished; no acute distress ENMT: Ears: no hearing impairment Neck: trachea midline; no anterior neck swelling Respiratory: no respiratory distress and does not use accessory muscles Gastrointestinal (Abdomen): Inspection/Auscultation: + abdomen distended (decreased from yesterday, mild to moderate) Percussion/Palpation: abdomen soft; abdomen nontender and no guarding inc c/d/i with dermabond Skin: normal turgor Neurologic: awake; not obtunded Psychiatric: Orientation: alert and oriented x 3 Lymphatic: no lymphadenopathy Results & Data Laboratory Results Laboratory Results - last 48 hr 02/18/19 02/18/19 02/19/19 05:51 05:51 07:23 WBC 7.22 8.05 RBC 3.36 L 3.36 L Hgb 9.1 L 9.2 L Hct 28.0 L 28.1 L MCV 83.3 83.6 MCH 27.1 27.4 MCHC 32.5 32.7 RDW Std Deviation 46.6 H 45.9 RDW Coeff of Anahi 15.3 H 15.1 H Plt Count 268 322 MPV 8.4 8.4 Immature Gran % (Auto) 0.4 1.1 Neut % (Auto) 58.7 58.1 Lymph % (Auto) 21.6 18.3 [place] % (Auto) 13.3 14.3 Eos % (Auto) 5.7 8.0 Baso % (Auto) 0.3 0.2 Immature Gran # (Auto) 0.03 H 0.09 H Neut # (Auto) 4.24 4.68 Lymph # (Auto) 1.56 1.47 [place] # (Auto) 0.96 H 1.15 H Eos # (Auto) 0.41 0.64 H Baso # (Auto) 0.02 0.02 Sodium 140 Potassium 3.8 Chloride 108 H Carbon Dioxide 23 Anion Gap 9.0 BUN 21 H Creatinine 0.92 Est Cr Clr Drug Dosing 42.2 Est GFR ( Amer) 69.6 Est GFR (Non-Af Amer) 60.1 BUN/Creatinine Ratio 22.8 H Glucose 81 Calcium 8.5 02/19/19 07:23 WBC RBC Hgb Hct MCV MCH MCHC RDW Std Deviation RDW Coeff of Anahi Plt Count MPV Immature Gran % (Auto) Neut % (Auto) Lymph % (Auto) [place] % (Auto) Eos % (Auto) Baso % (Auto) Immature Gran # (Auto) Neut # (Auto) Lymph # (Auto) [place] # (Auto) Eos # (Auto) Baso # (Auto) Sodium 140 Potassium 3.4 L Chloride 109 H Carbon Dioxide 22 Anion Gap 9.0 BUN 17 Creatinine 0.82 Est Cr Clr Drug Dosing 47.4 Est GFR ( Amer) 80.0 Est GFR (Non-Af Amer) 69.0 BUN/Creatinine Ratio 21.3 H Glucose 77 Calcium 8.7
[2019-02-19] MEDS: CYANOCOBALAMIN 500 MCG TABLET (VITAMIN B-12) PO SCH (08:51)
[2019-02-19] MEDS: PANTOprazole 40 MG TAB PO SCH (08:52)
[2019-02-19] MEDS: ENOXAPARIN INJ 40 MG/0.4 ML SYR SQ SCH (08:52)
[2019-02-19] MEDS: FOLIC ACID 1 MG TAB PO SCH ×2 (08:53→21:07)
[2019-02-19] MEDS: GABAPENTIN 100 MG CAP PO SCH ×2 (08:53→21:10)
[2019-02-19] MEDS: BISACODYL 10 MG SUPP PR SCH ×2 (08:53→21:07)
[2019-02-19] MEDS: DOCUSATE SODIUM 100 MG CAP PO SCH ×2 (08:53→21:06)
[2019-02-19] MEDS: CHOLECALCIFEROL 1,000 UNITS TAB PO SCH (08:54)
[2019-02-19] MEDS: OXYCODONE HCL IR 5 MG TAB (IMMEDIATE RELEASE) PO PRN ×3 (11:43→22:08)
[2019-02-19] MEDS: CALCIUM 600MG + VIT D 400 IU TAB PO SCH (21:06)
[2019-02-19] MEDS: ZOLPIDEM TARTRATE 5 MG TAB PO PRN (23:31)
[2019-02-20] MEDS: OXYCODONE HCL IR 5 MG TAB (IMMEDIATE RELEASE) PO PRN ×2 (04:28→11:52)
[2019-02-20] MEDS: ACETAMINOPHEN 1,000 MG/100 ML VIAL IV SCH ×2 (06:18→13:25)
[2019-02-20] MEDS: BISACODYL 10 MG SUPP PR SCH (08:53)
[2019-02-20] MEDS: DOCUSATE SODIUM 100 MG CAP PO SCH (08:53)
[2019-02-20] MEDS: PANTOprazole 40 MG TAB PO SCH (08:54)
[2019-02-20] MEDS: ENOXAPARIN INJ 40 MG/0.4 ML SYR SQ SCH (08:54)
[2019-02-20] MEDS: GABAPENTIN 100 MG CAP PO SCH (08:54)
[2019-02-20] MEDS: CHOLECALCIFEROL 1,000 UNITS TAB PO SCH (08:56)
[2019-02-20] MEDS: FOLIC ACID 1 MG TAB PO SCH (08:56)
[2019-02-20] MEDS: CYANOCOBALAMIN 500 MCG TABLET (VITAMIN B-12) PO SCH (08:56)
--- NOTE | 2019-02-20 09:19 | Urology Progress Note ---
Date of Service February 20, 2019 Assessment & Plan (1) Renal mass: 78YO female POD #6 s/p partial nephrectomy, lap patrick. Patient is feeling much better today, states that she is ready for discharge. Encouraged to hydrate with Gatorade/Pedialyte at home with diarrhea. BP medication resumed this morning. Postop activity restrictions reviewed. Subjective 78YO female POD #6 s/p partial nephrectomy, lap patrick. Patient reports feeling better this morning, slept well. Continues to have liquid stools, but has better control over bowels. Pain is controlled. Voiding without hematuria or bother. Her GITA drain was removed yesterday by nursing. Home BP medications restarted this AM. Physical Exam Vital Signs (Past 24 Hours): Last Vital Signs Temp 36.9 C 02/20/19 07:57 Pulse 82 02/20/19 07:57 Resp 18 02/20/19 07:57 BP 194/78 H 02/20/19 07:57 Pulse Ox 93 02/20/19 07:57 Physical Exam: WN/WD NAD. No JVD. No LE edema. Resp: no labored breathing. Abd: +mildly distended, but soft. +Diffuse mild tenderness with palpation. Abdom inal incisions healing appropriately. GITA site dressing +mild serosanguineous drainage. Bladder not distended.
[2019-02-20] MEDS: ONDANSETRON INJ 2 MG/ML 2 ML VIAL IV PRN (11:52)
--- NOTE | 2019-02-22 06:23 | Coding Query ---
PATHOLOGY To promote full compliance with coding requirements relating to patient care, physician participation is requested in all cases of taxation agent uncertainty. Please assist us with the question(s) below: Please review the Pathology report and please document any relevant diagnosis(es) below: Diagnosis(es): Renal cell carcinoma, clear cell type Thank you Kaycee VERDUZCO
--- NOTE | 2019-02-22 09:57 | Discharge Summary ---
Date of Service February 22, 2019 Admission HPI Per Admitting Provider During workup for gallbladder issues, patient was found to have a right renal mass. Pt here for combined procedure of cholecystectomy and partial right nephrectomy Admission Exam (Per Admitting) Constitutional well developed and well nourished; no acute distress ENMT Ears: no hearing impairment Neck trachea midline; no anterior neck swelling Respiratory no respiratory distress and does not use accessory muscles Gastrointestinal (Abdomen) Inspection/Auscultation: + abdomen distended (decreased from yesterday, mild to moderate) Percussion/Palpation: abdomen soft; abdomen nontender and no guarding Skin normal turgor Neurologic awake; not obtunded Psychiatric Orientation: alert and oriented x 3 Lymphatic no lymphadenopathy Discharge Data Procedures Performed Operation Date: 02/14/19 07:00 Actual Procedures p Laparoscopic Cholecystectomy;Lysis of Adhesions - Bryson Sanchez DO s Right Robotic Laparoscopic Parital Nephrectomy, Lysis of Adhesions(Right) - Harman Dutta MD Hospital Course (1) Renal mass: Patient noted to have stable labs postop. However she suffered from abdominal distension and poor PO intake c/w ileus. This resolved by POD#5 but then she suffered from diarrhea, improved sufficiently for DC 78YO female POD #6 s/p partial nephrectomy, lap patrick. Patient is feeling much better today, states that she is ready for discharge. Encouraged to hydrate with Gatorade/Pedialyte at home with diarrhea. BP medication resumed this morning. Postop activity restrictions reviewed. Discharge Instructions See discharge instructions list for further details
--- NOTE | 2019-02-26 11:29 | Coding Query ---
Your help is needed for correct coding of this account; please clarify if the patients Post-operative Ileus (documented beginning with Progress Note 02/18/19 with " I suspect a postop ileus." was: ( ) expected out of the surgery ( ) unexpected complication from the surgery ( X )other please specify unplanned but not uncommon complication of surgery Thank you Kaycee VERDUZCO
== END 2019-02-20 15:03 | disposition home health service (06) | DRG 657 ==
LOC: ASU 05:03 → 3W 12:59

== ENCOUNTER 2019-02-22 13:05 | Inpatient (IN) ==
[2019-02-22] MEDS ORDERED: SODIUM CHLORIDE 0.9% 500 ML IV SCH (15:15)
[2019-02-22 16:19] LABS: Basophils # (auto) 0.04 K/uL (0-0.2); Basophils % (auto) 0.5 %; Eosinophils # (auto) 0.36 K/uL (0-0.5); Eosinophils % (auto) 4.2 %; Hematocrit (blood only) 31.8 % (37-47); Hemoglobin 10.4 g/dL (12.0-16.0); Immature Granulocytes # (auto) 0.33 K/uL (0.00-0.02); Immature Granulocytes % (auto) 3.8 %; Lymphocytes # (auto) 1.84 K/uL (1.2-3.4); Lymphocytes % (auto) 21.2 %; Mean Corpuscular Hgb Conc 32.7 g/dL (32-36); Mean Corpuscular Volume 82.6 fL (80-100); Mean Platelet Volume 8.3 fL (7.4-10.4); Monocytes # (auto) 0.78 K/uL (0.11-0.59); Neutrophils # (auto) 5.31 K/uL (1.4-6.5); Neutrophils % (auto) 61.3 %; Platelet Count 510 K/uL (130-400); RDW Coefficient of Variation 15.3 % (11.5-14.5); RDW Standard Deviation 45.8 fL (36.4-46.3); Red Blood Count 3.85 M/uL (4.2-5.4); White Blood Count 8.66 K/uL (4.8-10.8)
[2019-02-22 16:24] LABS: Albumin Level 2.8 gm/dl (3.4-5.0); BUN Creatinine Ratio 23.7 (10-20); Calcium 9.2 mg/dl (8.5-10.1); Creatinine Clr Calc Pharmacy 49.6 ml/min; Potassium 2.7 mmol/L (3.5-5.1)
[2019-02-22 16:27] LABS: Albumin Globulin Ratio 0.6 (0.9-2); Bilirubin,Total 0.3 mg/dl (0.2-1); Globulin 4.4 gm/dl (2.5-4.0); Total Protein 7.2 gm/dl (6.4-8.2)
[2019-02-22] MEDS ORDERED: POTASSIUM CHLORIDE 10 MEQ TABCR PO STA (16:27)
[2019-02-22] MEDS ORDERED: POTASSIUM CHLORIDE / WTR 10 MEQ/100 ML PLCT IV ONE (16:27)
--- NOTE | 2019-02-22 17:00 | XRay Report ---
PA CHEST RADIOGRAPH AND UPRIGHT AND SUPINE AP RADIOGRAPHS OF THE ABDOMEN CLINICAL HISTORY: post op with abd distention eval for obstruction COMPARISON STUDY: Chest CT December 25, 2018. KUB February 18, 2019. FINDINGS: There is no pneumothorax or evidence for pulmonary edema. Mild bibasilar opacities favor a telectasis. There is a small right pleural effusion. Cardiomediastinal silhouette is stable. Anterior cervical spine fusion is noted as well as postoperative findings within the lumbar spine and cholecy stectomy clips. There is no free air. Moderate small bowel dilatation is noted. This has mildly decre ased since exam of February 18, 2019. IMPRESSION: 1. No free air. 2. Moderate small bowel dilatation, mildly decreased since prior exam. This may reflect an ileus or p artial small bowel obstruction. 3. Small right pleural effusion. Electronically signed by: Fred Patel M.D. 02/22/2019 4:58 PM
--- NOTE | 2019-02-22 19:15 | CT Scan Report ---
ABDOMEN AND PELVIS CT WITHOUT CONTRAST CT DOSE: 331.27 mGy.cm HISTORY: Acute generalized abdominal pain with concern for small bowel obstruction. History of prior right hemicolectomy. eval for sbo TECHNIQUE: Multiaxial CT images of the abdomen and pelvis were performed without contrast. A dose lo wering technique was utilized adhering to the principles of ALARA. COMPARISON STUDY: CT abdomen and pelvis 12/13/2018, MRI abdomen 12/27/2018. FINDINGS: Small right and trace left pleural effusions. Minimal tree-in-bud nodules about the left lung base wi th mild dependent right basilar airspace opacities. There is no pneumatosis or pneumoperitoneum. Imag ed inferior cardiac chambers are mildly enlarged with trace pericardial effusion and coronary arteria l calcifications. Prior cholecystectomy. Solid abdominal organs are limited without the use of IV contrast. Multiple hy podense lesions of the liver redemonstrated suggestive of probable cysts measuring up to 4.2 cm withi n the right hepatic lobe. Marginal calcifications are noted about cyst within the inferior right hepa tic lobe. Spleen is unremarkable. Moderate generalized pancreatic atrophy. Mild thickening of the lef t adrenal gland. Normal right adrenal gland. External renal pelvis and left with urothelial thickening redemonstrated. There are a few nonobstruct ing calculi of the inferior pole left kidney measuring up to 3 mm. Mild nonspecific left perinephric stranding with multiple left renal cysts. Postoperative changes of the interpolar and inferior pole r ight kidney from prior partial nephrectomy. Multiple right-sided renal cysts redemonstrated. There is moderate right-sided perinephric stranding with moderate right-sided pelvocaliectasis. Mild dilation of the proximal right ureter. Urinary bladder is within normal limits. Prior hysterectomy. No adnexa l mass lesions. Moderate calcified plaque of the abdominal aorta without aneurysm. Hyperdense material noted about th e distal gastric lumen and proximal small bowel, likely ingested medicinal material. Multiple fluid-f illed loops of small bowel with air-fluid levels are noted measuring up to 3.3 cm transversely. Air-f luid levels are also noted about nondilated large bowel. Postoperative changes from prior partial rig ht hemicolectomy. Trace abdominal ascites with free fluid tracking along the right subhepatic distrib ution and pericolic gutter. No definite transition point identified. Varices noted about the lower an terior pelvic wall. Mild to moderate generalized body wall edema. Degenerative changes of the spine. Chronic postoperative changes of the lumbar spine with demineralized appearance of the bones. Unchang ed grade 1 listhesis L4 on L5. T10 and T12 compression deformities appear unchanged. IMPRESSION: 1. Interval postoperative changes compatible with partial right-sided nephrectomy with resection of t he previously noted renal neoplasm. Moderate right perinephric stranding likely reflective of expecte d postoperative findings. 2. Fluid-filled dilated loops of small bowel without transition point identified are suspicious for s mall bowel obstruction or ileus. Follow-up recommended. 3. Air-fluid levels throughout nondilated loops of large bowel suggest diarrheal illness. 4. No pneumatosis or pneumoperitoneum. 5. Nonobstructing left nephrolithiasis. 6. Trace left and small right pleural effusions with mild tree-in-bud nodules of the left lung base a nd right lung base consolidation suggestive of bronchiolitis with pneumonitis or atelectasis. 7. Trace abdominal ascites. Electronically signed by: Kenan Fritz M.D. 02/22/2019 7:12 PM
--- NOTE | 2019-02-22 20:20 | History & Physical Report ---
Date of Service February 22, 2019 Assessment & Plan (1) Partial bowel obstruction: 78 y/o F Hx Colon CA - colectomy, HTN, HLD, DVTs - Coumadin. Recent admission 02/14 for excision of R renal mass and cholecystectomy. Pathology results returned + for clear cell renal CA. The pt presents with abdominal pain and diarrhea. She was discharged form the hospital following her surgeries AM 02/20. She developed watery diarrhea during her last 2 days in the hospital which has persisted. She describes some R sided abdominal pain which she states is different from her post-op pain which had largely resolved. She has not been able to tolerate adequate PO intake due to early satiety. She denies fevers, nausea or vomiting. She was sent for an abdominal CT which demonstrated fluid-filled dilated loops of small bowel suspicious for small bowel obstruction or ileus. Initial labs are notable for hypokalemia. 1) Partial SBO - it would come to reason that in the absence of a transition point, nausea or vomiting that this constitutes a post-op ileus. She is afebrile without leukocytosis so that a post op GI infection is not likely at present. The pt is assigned to the surgical service and is pending surgical evaluation. We will provide IVF, analgesics and scheduled Reglan. We will attempt to avoid narcotic administration. C diff was ruled out in the ER. 2) Hypokalemia - Mag and K provided - recheck BMP AM 3) HTN - IV Hydralazine is provided PRN 4) HLD - Fenofibrate held until she is tolerating PO and diarrhea has resolved 5) Regarding her recent diagnosis of CA - this was effectively excised - she will follow with urology for serial imaging in the oupt setting. Full code - Lovenox prophylaxis - full dose due to history of DVTs Total time for this admit including review of labs, meds, imaging, records - discussion with pt and ER attending - 40 min Present on Admission?: Yes History of Present Illness Chief Complaint: abdominal pain - SBO Primary Care Provider: Anthony Yeh MD 78 y/o F Hx Colon CA - colectomy, HTN, HLD, DVTs - Coumadin. Recent admission 02/14 for excision of R renal mass and cholecystectomy. Pathology results returned + for clear cell renal CA. The pt presents with abdominal pain and diarrhea. She was discharged form the hospital following her surgeries AM 02/20. She developed watery diarrhea during her last 2 days in the hospital which has persisted. She describes some R sided abdominal pain which she states is different from her post-op pain which had largely resolved. She has not been able to tolerate adequate PO intake due to early satiety. She denies fevers, nausea or vomiting. She was sent for an abdominal CT which demonstrated fluid-filled dilated loops of small bowel suspicious for small bowel obstruction or ileus. Initial labs are notable for hypokalemia. 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 Fish Containing Products Allergy Unknown UNKNOWN Verified 02/22/19 14:58 neomycin Allergy Unknown ALLERGY TO Verified 02/22/19 14:58 "TOPICAL ANTIBIOTICS" ?? polymyxin B Allergy Unknown ALLERGY TO Verified 02/22/19 14:58 "TOPICAL ANTIBIOTICS" ?? amoxicillin AdvReac Intermediate Vomiting Verified 02/22/19 14:58 nitrofurantoin AdvReac Intermediate FLU-LIKE Verified 02/22/19 14:58 SYMPTOMS Home Medications Home Medications Medication Instructions Recorded Confirmed Type Caltrate 600 + D 1 tab PO QPM 08/15/18 02/22/19 History cholecalciferol (vitamin D3) 2,000 unit PO QAM 08/15/18 02/22/19 History [Vitamin D3] cyanocobalamin (vitamin B-12) 500 mcg PO QAM 08/15/18 02/22/19 History [Vitamin B-12] fenofibrate nanocrystallized 0.5 tab PO HS 08/15/18 02/22/19 History folic acid 2 tab PO BID 08/15/18 02/22/19 History gabapentin 200 mg PO BID 08/15/18 02/22/19 History losartan 25 mg PO QAM 08/15/18 02/22/19 History omeprazole 40 mg PO QAM 08/15/18 02/22/19 History triamterene-hydrochlorothiazid 1 cap PO QAM 08/15/18 02/22/19 History zolpidem 5 - 10 mg PO HS PRN 08/15/18 02/22/19 History diphenhydramine HCl [Benadryl 25 mg PO Q8H PRN #30 tab 08/16/18 02/22/19 Rx Allergy] acetaminophen [Tylenol Extra 1,000 mg PO Q6H PRN 02/14/19 02/22/19 History Strength] docusate sodium [Colace] 100 mg PO BID PRN #60 cap 02/19/19 02/22/19 Rx oxycodone 5 mg PO Q6H PRN #14 tab 02/19/19 02/22/19 Rx enoxaparin [Lovenox] 80 mg SUBCUT DAILY 02/22/19 02/22/19 History Past Med/Surg History Medical History Cardiac murmur Per 07/2018 echo: Mild MR and TR. Mild aortic calcification without hemodynamically significant valvular aortic stenosis. Cholelithiasis Chronic UTI (urinary tract infection) Chronic back pain GERD (gastroesophageal reflux disease) History of colon cancer s/p R hemicolectomy 1989. +Chemo. 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 Hyperlipidemia Hypertension Kidney stones HX OF Osteoarthritis Osteopenia Pre-diabetes Renal mass Surgical History Fusion of spine LUMBAR L3-L5, AND CERVICAL 3-4 WITH FULL ROM H/O hemicolectomy History of section X2 History of colonoscopy History of hysterectomy ARMANDO WITH OOPHRECTOMY History of laminectomy LUMBAR History of open reduction and internal fixation (ORIF) procedure RIGHT LEG History of parathyroidectomy X2 History of parotid gland excision LEFT Hx of cystoscopy with urethral stent placement Family History Other No pertinent family history Social History Preferred Language: Yi Beliefs That Will Affect Care: None Current Living Situation: Alone Feels Safe at Home: Yes Smoking Status: Never smoker Hx Alcohol Use: Yes Hx Substance Use: No Review of Systems Gen: Denies fevers, night sweats, rigors, fatigue, malaise, weight loss/gain ENT: Denies congestion, throat pain, hearing loss Eyes: Denies acute visual changes CV: Denies CP, palpitations Pulmonary: Denies SOB, cough, wheezing GI: Watery diarrhea since surgery - early satiety, has not had a formed bowel movement - there is moderate R sided abdominal pain - the abdominal wall wounds appear to be healing quite well Neuro: Denies acute or unilateral weakness, acute gait impairment, headache or acute visual changes Musculoskeletal: Denies joint pain, inflammation Endocrine: Denies polydipsia, polyuria Skin: Denies acute rashes or ulcers Physical Exam Vital Signs (Past 24 Hours): Last Vital Signs Temp 36.9 C 02/22/19 14:06 Pulse 86 02/22/19 19:09 Resp 17 02/22/19 19:09 BP 162/90 H 02/22/19 19:09 Pulse Ox 96 02/22/19 19:09 Physical Exam: General: AAO x 3, no distress ENT: No erythema or exudates, no thrush Eyes: DIANE, EOMI Head and neck: Normocephalic, atraumatic, No JVD, neck is supple. Chest/heart: Nontender, S1,2, RRR, no murmurs, no gallops Lungs: CTAB, no wheezing or crackles Abdomen: Distention and mild tenderness owing to recent surgery - multiple abdominal wall words Neuro: AAO x 3, speech is clear, no unilateral weakness or loss of sensation, coordination intact Musculoskeletal: No joint inflammation, muscle tenderness, FROM Skin: No acute rashes or ulcers Extremities: No clubbing, cyanosis, edema Results & Data Diagnostic Findings CT abdomen: 1. Interval postoperative changes compatible with partial right-sided nephrectomy with resection of the previously noted renal neoplasm. Moderate right perinephric stranding likely reflective of expected postoperative findings. 2. Fluid-filled dilated loops of small bowel without transition point identified are suspicious for small bowel obstruction or ileus. Follow-up recommended. 3. Air-fluid levels throughout nondilated loops of large bowel suggest diarrheal illness. 4. No pneumatosis or pneumoperitoneum. 5. Nonobstructing left nephrolithiasis. 6. Trace left and small right pleural effusions with mild tree-in-bud nodules of the left lung base and right lung base consolidation suggestive of bronchiolitis with pneumonitis or atelectasis. 7. Trace abdominal ascites. (1) Partial bowel obstruction Intestinal obstruction type: unspecified Qualified Code(s): K56.600 - Partial intestinal obstruction, unspecified as to cause
--- NOTE | 2019-02-22 21:04 | Emergency Department Note ---
Entered by Maryam Mayberry acting as a scribe for Chi Rocha MD History of Present Illness General Chief complaint: Diarrhea Stated complaint: POST SURGERY - LIQUID STOOL FOR 5X DAY Source: patient Limitations: no limitations History of Present Illness Onset (ago): day(s) 5 Location: abdomen Pain Consistency: + other (episodes) Maximum Pain Intensity: 8 Quality: + other (diarrhea) Associated symptoms: + denies other symptoms (bloody stool, difficulty urinating), + nausea/vomiting (complains of nausea, denies vomiting), + shortness of breath and + other (intermittent abdominal pain, distended abdomen); no chest pain The patient is a 78 year old female who presents to the Emergency Room with complaints of episodic diarrhea that began 5 days ago. She reports that the stool is "very watery." The patient states that she had a cholecystectomy and partial nephrectomy six days ago. She reports that she was constipated after the surgery, but she was given a stool softener. After this she had very watery stools. The patient complains of a distended abdomen, noting that she believes this to be the reason she feels slightly short of breath. The patient complains of nausea, but she denies any vomiting. She complains of intermittent sharp right-sided abdominal pain. The patient denies CP, difficulty urinating, and bloody stool. She denies any history of C. diff. The patient reports that she is not on any antibiotics. She only received antibiotics prior to her surgery. Home Medications Home Medications Medication Instructions Recorded Confirmed Type Caltrate 600 + D 1 tab PO QPM 08/15/18 02/22/19 History cholecalciferol (vitamin D3) 2,000 unit PO QAM 08/15/18 02/22/19 History [Vitamin D3] cyanocobalamin (vitamin B-12) 500 mcg PO QAM 08/15/18 02/22/19 History [Vitamin B-12] fenofibrate nanocrystallized 0.5 tab PO HS 08/15/18 02/22/19 History folic acid 2 tab PO BID 08/15/18 02/22/19 History gabapentin 200 mg PO BID 08/15/18 02/22/19 History losartan 25 mg PO QAM 08/15/18 02/22/19 History omeprazole 40 mg PO QAM 08/15/18 02/22/19 History triamterene-hydrochlorothiazid 1 cap PO QAM 08/15/18 02/22/19 History zolpidem 5 - 10 mg PO HS PRN 08/15/18 02/22/19 History diphenhydramine HCl [Benadryl 25 mg PO Q8H PRN #30 tab 08/16/18 02/22/19 Rx Allergy] acetaminophen [Tylenol Extra 1,000 mg PO Q6H PRN 02/14/19 02/22/19 History Strength] docusate sodium [Colace] 100 mg PO BID PRN #60 cap 02/19/19 02/22/19 Rx oxycodone 5 mg PO Q6H PRN #14 tab 02/19/19 02/22/19 Rx enoxaparin [Lovenox] 80 mg SUBCUT DAILY 02/22/19 02/22/19 History Allergies Allergy/AdvReac Type Severity Reaction Status Date / Time cephalexin [From Keflex] Allergy Severe Hives Verified 02/22/19 14:58 adhesive Allergy Intermediate TAPE Verified 02/22/19 14:58 ALLERGY = "TEARS SKIN" clavulanic acid Allergy Mild vomiting/or Verified 02/22/19 14:58 [From Augmentin] rash bacitracin Allergy Unknown ALLERGY TO Verified 02/22/19 14:58 "TOPICAL ANTIBIOTICS" ?? Fish Containing Products Allergy Unknown UNKNOWN Verified 02/22/19 14:58 neomycin Allergy Unknown ALLERGY TO Verified 02/22/19 14:58 "TOPICAL ANTIBIOTICS" ?? polymyxin B Allergy Unknown ALLERGY TO Verified 02/22/19 14:58 "TOPICAL ANTIBIOTICS" ?? amoxicillin AdvReac Intermediate Vomiting Verified 02/22/19 14:58 nitrofurantoin AdvReac Intermediate FLU-LIKE Verified 02/22/19 14:58 SYMPTOMS Past Med/Surg History Medical History Cardiac murmur Per 07/2018 echo: Mild MR and TR. Mild aortic calcification without hemodynamically significant valvular aortic stenosis. Cholelithiasis Chronic UTI (urinary tract infection) Chronic back pain GERD (gastroesophageal reflux disease) History of colon cancer s/p R hemicolectomy 1989. +Chemo. 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 Hyperlipidemia Hypertension Kidney stones HX OF Osteoarthritis Osteopenia Pre-diabetes Renal mass Surgical History Fusion of spine LUMBAR L3-L5, AND CERVICAL 3-4 WITH FULL ROM H/O hemicolectomy History of section X2 History of colonoscopy History of hysterectomy ARMANDO WITH OOPHRECTOMY History of laminectomy LUMBAR History of open reduction and internal fixation (ORIF) procedure RIGHT LEG History of parathyroidectomy X2 History of parotid gland excision LEFT Hx of cystoscopy with urethral stent placement Family History Other No pertinent family history Social History Preferred Language: Kittitian Beliefs That Will Affect Care: None Current Living Situation: Alone Feels Safe at Home: Yes Smoking Status: Never smoker Hx Alcohol Use: Yes Hx Substance Use: No Review of Systems See HPI for pertinent positives & negatives. and A total of 10 systems reviewed and were otherwise negative Physical Exam Vital Signs Vital Signs - 24 hr 02/22/19 14:06 02/22/19 17:03 02/22/19 17:47 Temperature 36.9 C Temperature Source Oral Sepsis Recent Fever Within 48 Hours No Sepsis Action Taken by Nursing No Action Required Pulse Rate 70 Pulse Rate [Finger] 92 H 89 Pulse Rhythm Regular Pulse Strength Normal Respiratory Rate 20 17 17 Respiratory Effort / Characteristics Non-Labored Spontaneous Respiratory Depth Normal Respiratory Pattern Regular Blood Pressure 152/81 H Blood Pressure [Left Arm] 186/86 H 171/91 H Blood Pressure Mean 104 Blood Pressure Mean [Left Arm] 119 117 Blood Pressure Position Sitting Pulse Oximetry 94 97 96 Oxygen Delivery Method Room Air Room Air Room Air 02/22/19 19:09 Temperature Temperature Source Sepsis Recent Fever Within 48 Hours Sepsis Action Taken by Nursing Pulse Rate Pulse Rate [Finger] 86 Pulse Rhythm Pulse Strength Respiratory Rate 17 Respiratory Effort / Characteristics Respiratory Depth Respiratory Pattern Blood Pressure Blood Pressure [Left Arm] 162/90 H Blood Pressure Mean Blood Pressure Mean [Left Arm] 114 Blood Pressure Position Pulse Oximetry 96 Oxygen Delivery Method Room Air Constitutional: Vital signs reviewed. Eyes: Pupils are equal round reactive to light. Conjunctiva are noninjected. ENT: Pharynx is clear without erythema or exudate. Mucous membranes are dry. Neck supple without meningeal signs. Respiratory: Clear to auscultation bilaterally. Breath sounds are equal bilaterally. Cardiovascular: Regular rate and rhythm. No rubs or gallops. GI: Mild right-sided abdominal tenderness. Distended. Incisions are dry, clean, and intact. Bowel sounds are present. Musculoskeletal: No peripheral edema. No lower extremity tenderness. Integumentary: No cyanosis. Neurological: The patient is awake and alert. No focal deficits. Psychiatric: Normal affect. Course 1458: Past medical records reviewed. The patient was evaluated in room A02, and a complete history and physical examination were performed. 162: I reevaluated the patient. We are still waiting on results. 1714: I discussed the test results with the patient. I recommended a CT scan. S he stated that she had had a SBO in the past. She agreed to a CT. 1920: I updated the patient on her test results. 1937: I spoke to Dr. Dutta, urology, about the patient's case. He recommends admission. Dr. Dutta said she was discharged 2 days ago. 1951: I spoke with Dr. Ladd, general surgery, about the patients case. He recommended admission. 1953: I spoke to Dr. Chen, [facility] hospitalist, about the patients case. He will evaluate the patient further. 1956: I discussed the plan with the patient, and she was agreeable. Consultations Consultation #1: I spoke to Dr. Dutta, urology, about the patient's case. He recommends admission. Time: 19:38 Consultation #2: I spoke with Dr. Ladd, general surgery, about the patients case. He recommended admission. Time: 19:52 Consultation #3: I spoke to Dr. Chen, [facility] hospitalist, about the patients case. He will evaluate the patient further. Time: 19:54 Administered Medications Discontinued Medications Sodium Chloride (Nss) 500 mls @ 999 mls/hr IV .Q31M HENRY Stop: 02/22/19 15:45 Last Infusion: 02/22/19 16:49 Dose: 0 mls/hr Documented by: [id number] Admin: 02/22/19 16:05 Dose: 999 mls/hr Documented by: [id number] Potassium Chloride (K John / Wtr) 10 meq in 100 mls @ 100 mls/hr IV ONE ONE Stop: 02/22/19 17:26 Last Infusion: 02/22/19 18:12 Dose: 0 mls/hr Documented by: [id number] Admin: 02/22/19 17:07 Dose: 100 mls/hr Documented by: [id number] Potassium Chloride (Klor-Con M10) 40 meq PO NOW STA Stop: 02/22/19 16:28 Last Admin: 02/22/19 17:03 Dose: 40 meq Documented by: [id number] Medical Decision Making Differential Diagnosis The differential diagnosis includes: diarrhea, dehydration, electrolyte abnormality, and partial bowel obstruction. Medical Records Attestation: I reviewed the patient's medical records. Her medical records state that she had a cholecystectomy and partial right-sided nephrectomy on 02/14/19. Noted to have diarrhea on post-op day number 5. Home Medications Current Medication List: was personally reviewed by me Laboratory Data Attestation: I reviewed the patient's lab results. Result diagrams: 02/22/19 15:52 02/22/19 15:52 Lab Results 02/22/19 02/22/19 02/22/19 Range/Units 15:50 15:52 15:52 WBC 8.66 (4.8-10.8) K/uL RBC 3.85 L (4.2-5.4) M/uL Hgb 10.4 L (12.0-16.0) g/dL Hct 31.8 L (37-47) % MCV 82.6 (80-100) fL MCH 27.0 (25-34) pg MCHC 32.7 (32-36) g/dL RDW Std Deviation 45.8 (36.4-46.3) fL RDW Coeff of Anahi 15.3 H (11.5-14.5) % Plt Count 510 H (130-400) K/uL MPV 8.3 (7.4-10.4) fL Immature Gran % (Auto) 3.8 % Neut % (Auto) 61.3 % Lymph % (Auto) 21.2 % [place] % (Auto) 9.0 % Eos % (Auto) 4.2 % Baso % (Auto) 0.5 % Immature Gran # (Auto) 0.33 H (0.00-0.02) K/uL Neut # (Auto) 5.31 (1.4-6.5) K/uL Lymph # (Auto) 1.84 (1.2-3.4) K/uL [place] # (Auto) 0.78 H (0.11-0.59) K/uL Eos # (Auto) 0.36 (0-0.5) K/uL Baso # (Auto) 0.04 (0-0.2) K/uL Sodium 141 (136-145) mmol/L Potassium 2.7 L (3.5-5.1) mmol/L Chloride 110 H (98-107) mmol/L Carbon Dioxide 21 (21-32) mmol/L Anion Gap 10.0 (3-11) BUN 19 H (7-18) mg/dl Creatinine 0.82 (0.6-1.2) mg/dl Est Cr Clr Drug Dosing 49.6 ml/min Est GFR ( Amer) 80.0 Est GFR (Non-Af Amer) 69.0 BUN/Creatinine Ratio 23.7 H (10-20) Glucose 90 (70-99) mg/dl Calcium 9.2 (8.5-10.1) mg/dl Total Bilirubin 0.3 (0.2-1) mg/dl AST 34 (15-37) U/L ALT 59 (12-78) U/L Alkaline Phosphatase 259 H (45-117) U/L Total Protein 7.2 (6.4-8.2) gm/dl Albumin 2.8 L (3.4-5.0) gm/dl Globulin 4.4 H (2.5-4.0) gm/dl Albumin/Globulin Ratio 0.6 L (0.9-2) Lipase 177 (73-393) U/L Stl C. diff Tox B Gene Negative Cdiff Gene (Neg) Imaging Data Radiologist's Impression: Radiology results as stated below per my review and the radiologist's interpretation: PA CHEST RADIOGRAPH AND UPRIGHT AND SUPINE AP RADIOGRAPHS OF THE ABDOMEN CLINICAL HISTORY: post op with abd distention eval for obstruction COMPARISON STUDY: Chest CT December 25, 2018. KUB February 18, 2019. FINDINGS: There is no pneumothorax or evidence for pulmonary edema. Mild bibasilar opacities favor atelectasis. There is a small right pleural effusion. Cardiomediastinal silhouette is stable. Anterior cervical spine fusion is noted as well as postoperative findings within the lumbar spine and cholecystectomy clips. There is no free air. Moderate small bowel dilatation is noted. This has mildly decreased since exam of February 18, 2019. IMPRESSION: 1. No free air. 2. Moderate small bowel dilatation, mildly decreased since prior exam. This may reflect an ileus or partial small bowel obstruction. 3. Small right pleural effusion. Electronically signed by: Fred Patel M.D. 02/22/2019 4:58 PM ABDOMEN AND PELVIS CT WITHOUT CONTRAST CT DOSE: 331.27 mGy.cm HISTORY: Acute generalized abdominal pain with concern for small bowel obstruction. History of prior right hemicolectomy. eval for sbo TECHNIQUE: Multiaxial CT images of the abdomen and pelvis were performed without contrast. A dose lowering technique was utilized adhering to the principles of ALARA. COMPARISON STUDY: CT abdomen and pelvis 12/13/2018, MRI abdomen 12/27/2018. FINDINGS: Small right and trace left pleural effusions. Minimal tree-in-bud nodules about the left lung base with mild dependent right basilar airspace opacities. There is no pneumatosis or pneumoperitoneum. Imaged inferior cardiac chambers are mildly enlarged with trace pericardial effusion and coronary arterial calcifications. Prior cholecystectomy. Solid abdominal organs are limited without the use of IV contrast. Multiple hypodense lesions of the liver redemonstrated suggestive of probable cysts measuring up to 4.2 cm within the right hepatic lobe. Marginal calcifications are noted about cyst within the inferior right hepatic lobe. Spleen is unremarkable. Moderate generalized pancreatic atrophy. Mild thickening of the left adrenal gland. Normal right adrenal gland. External renal pelvis and left with urothelial thickening redemonstrated. There are a few nonobstructing calculi of the inferior pole left kidney measuring up to 3 mm. Mild nonspecific left perinephric stranding with multiple left renal cysts. Postoperative changes of the interpolar and inferior pole right kidney from prior partial nephrectomy. Multiple right-sided renal cysts redemonstrated. There is moderate right-sided perinephric stranding with moderate right-sided pelvocaliectasis. Mild dilation of the proximal right ureter. Urinary bladder is within normal limits. Prior hysterectomy. No adnexal mass lesions. Moderate calcified plaque of the abdominal aorta without aneurysm. Hyperdense material noted about the distal gastric lumen and proximal small bowel, likely ingested medicinal material. Multiple fluid-filled loops of small bowel with air-fluid levels are noted measuring up to 3.3 cm transversely. Air-fluid levels are also noted about nondilated large bowel. Postoperative changes from prior partial right hemicolectomy. Trace abdominal ascites with free fluid tracking along the right subhepatic distribution and pericolic gutter. No definite transition point identified. Varices noted about the lower anterior pelvic wall. Mild to moderate generalized body wall edema. Degenerative changes of the spine. Chronic postoperative changes of the lumbar spine with demineralized appearance of the bones. Unchanged grade 1 listhesis L4 on L5. T10 and T12 compression deformities appear unchanged. IMPRESSION: 1. Interval postoperative changes compatible with partial right-sided nephrectomy with resection of the previously noted renal neoplasm. Moderate right perinephric stranding likely reflective of expected postoperative finding s. 2. Fluid-filled dilated loops of small bowel without transition point identified are suspicious for small bowel obstruction or ileus. Follow-up recommended. 3. Air-fluid levels throughout nondilated loops of large bowel suggest diarrheal illness. 4. No pneumatosis or pneumoperitoneum. 5. Nonobstructing left nephrolithiasis. 6. Trace left and small right pleural effusions with mild tree-in-bud nodules of the left lung base and right lung base consolidation suggestive of bronchiolitis with pneumonitis or atelectasis. 7. Trace abdominal ascites. Electronically signed by: Kenan Fritz M.D. 02/22/2019 7:12 PM Blood Pressure Blood Pressure Findings: Elevated blood pressure Blood Pressure Disposition: Referred to patients primary care provider MDM Narrative I did evaluate the patient as noted above. The patient is presenting with watery diarrhea for the past 5 days. She is also developed some abdominal distention with some pain. She states that she has not been able to eat anything all day yesterday or today. She gets very nauseated but she has not yet thrown up. IV access was established. The patient was placed on a continuous data security analyst. I did treat the patient with normal saline IV. I did order and personally review the patient's abdominal and chest x-ray as described above. She does have signs of small bowel dilation. I did order and review the patient's blood work as noted in the electronic medical record. She is anemic. She has a potassium of 2.7 consistent with her diarrhea. I did treat her with IV KCl. She was also given oral potassium. I did order a CT of the abdomen and pelvis. I did review the images myself as well as the radiology report as described above. She does have evidence of a partial bowel obstr uction with dilated loops of small bowel. I did discuss the test results with the patient. I did speak to the urologist and surgeon on-call. He recommended the patient be admitted to the hospitalist. I did discuss the case with the hospitalist and major case detective. Impression & Plan Partial bowel obstruction, Hypokalemia Discharge Plan Visit Data Chief Complaint: Diarrhea Stated Complaint: POST SURGERY - LIQUID STOOL FOR 5X DAY ED Provider: Chi Rocha Discharge Problem: Partial bowel obstruction, Hypokalemia Patient Disposition: Being Evaluated by Hospitalist Forms Stand Alone Forms: My [facility] Prescriptions Prescriptions: No Action cyanocobalamin (vitamin B-12) [Vitamin B-12] 500 mcg Tablet 500 mcg PO QAM RF: 0 folic acid 1 mg tablet 2 tab PO BID RF: 0 fenofibrate nanocrystallized 145 mg tablet 0.5 tab PO HS RF: 0 cholecalciferol (vitamin D3) [Vitamin D3] 2,000 unit Tablet 2,000 unit PO QAM RF: 0 Caltrate 600 + D 600 mg (1,500 mg)-800 unit Tablet,Chewable 1 tab PO QPM RF: 0 omeprazole 40 mg capsule,delayed release(DR/EC) 40 mg PO QAM RF: 0 triamterene-hydrochlorothiazid 37.5-25 mg capsule 1 cap PO QAM RF: 0 losartan 25 mg tablet 25 mg PO QAM RF: 0 gabapentin 100 mg capsule 200 mg PO BID RF: 0 zolpidem 10 mg tablet 5 - 10 mg PO HS PRN (Reason: Sleep) RF: 0 diphenhydramine HCl [Benadryl Allergy] 25 mg tablet 25 mg PO Q8H PRN (Reason: itching) Qty: 30 RF: 0 acetaminophen [Tylenol Extra Strength] 500 mg Tablet 1,000 mg PO Q6H PRN (Reason: Pain) RF: 0 oxycodone 5 mg tablet 5 mg PO Q6H PRN (Reason: pain) Qty: 14 RF: 0 docusate sodium [Colace] 100 mg capsule 100 mg PO BID PRN (Reason: constipation) Qty: 60 RF: 0 enoxaparin [Lovenox] 80 mg/0.8 mL Syringe 80 mg SUBCUT DAILY RF: 0 Referrals Referrals: Anthony Yeh MD [Primary Care Provider] - Discharge Problem: Partial bowel obstruction Qualifiers: Intestinal obstruction type: unspecified Qualified Code(s): K56.600 - Partial intestinal obstruction, unspecified as to cause The scribe's documentation has been prepared under my direction and personally reviewed by me in its entirety. I confirm that the note above accurately r eflects all work, treatment, procedures, and medical decision making performed by me.
[2019-02-22] MEDS ORDERED: LORazepam 0.5 MG/1 ML VIAL IV PRN (22:17)
[2019-02-22] MEDS: D5NSS + 20MEQ KCL 20 MEQ/1,000 ML BAG IV SCH (23:49)
[2019-02-22] MEDS: METOCLOPRAMIDE HCL INJ 5 MG/ML 2 ML VIAL IV SCH (23:50)
[2019-02-22] MEDS: GABAPENTIN 100 MG CAP PO SCH (23:50)
[2019-02-23] MEDS: POTASSIUM CHLORIDE / WTR 10 MEQ/100 ML PLCT IV SCH ×4 (00:02→03:15)
[2019-02-23] MEDS: MAGNESIUM SULFATE / D5W 1 GM/100 ML BAG IV SCH ×2 (00:02→01:11)
[2019-02-23] MEDS ORDERED: ACETAMINOPHEN 1,000 MG/100 ML VIAL IV PRN (02:55)
[2019-02-23] MEDS: METOCLOPRAMIDE HCL INJ 5 MG/ML 2 ML VIAL IV SCH ×3 (05:43→22:14)
[2019-02-23 06:09] LABS: Basophils # (auto) 0.03 K/uL (0-0.2); Basophils % (auto) 0.3 %; Eosinophils # (auto) 0.77 K/uL (0-0.5); Hematocrit (blood only) 29.7 % (37-47); Hemoglobin 9.6 g/dL (12.0-16.0); Immature Granulocytes # (auto) 0.36 K/uL (0.00-0.02); Immature Granulocytes % (auto) 3.7 %; Lymphocytes # (auto) 2.24 K/uL (1.2-3.4); Lymphocytes % (auto) 23.2 %; Mean Corpuscular Hgb Conc 32.3 g/dL (32-36); Mean Corpuscular Volume 82.7 fL (80-100); Mean Platelet Volume 8.3 fL (7.4-10.4); Monocytes # (auto) 1.38 K/uL (0.11-0.59); Monocytes % (auto) 14.3 %; Neutrophils # (auto) 4.89 K/uL (1.4-6.5); Neutrophils % (auto) 50.5 %; Platelet Count 494 K/uL (130-400); RDW Coefficient of Variation 15.4 % (11.5-14.5); Red Blood Count 3.59 M/uL (4.2-5.4); White Blood Count 9.67 K/uL (4.8-10.8)
[2019-02-23 06:45] LABS: BUN Creatinine Ratio 22.3 (10-20); Calcium 8.5 mg/dl (8.5-10.1); Est GFR (African American) 97.3; Potassium 3.6 mmol/L (3.5-5.1)
[2019-02-23] MEDS: ENOXAPARIN 80 MG/0.8 ML SYR SQ SCH ×2 (08:47→10:23)
[2019-02-23] MEDS: GABAPENTIN 100 MG CAP PO SCH ×2 (08:48→20:08)
[2019-02-23] MEDS: D5NSS + 20MEQ KCL 20 MEQ/1,000 ML BAG IV SCH (08:58)
--- NOTE | 2019-02-23 09:16 | Progress Note ---
Date of Service February 23, 2019 Subjective Patient readmitted yesterday, currently POD#8 s/p R robotic partial nephrectomy, lap patrick for worsening GI function. consult not requested. Patient feels improved, in good spirits. Care and findings reviewed. NAD Soft, NT, no guarding or rigidity, decreased distension. Imaging and labwork reviewed. A/P 78 yo female with apparent persistent ileus POD#8 s/p R robotic partial, lap patrick, lap ELLEN. Outpatient f/u in place. Care per active services. Physical Exam Vital Signs (Past 24 Hours): Last Vital Signs Temp 36.7 C 02/23/19 07:23 Pulse 88 02/23/19 07:23 Resp 18 02/23/19 07:23 BP 182/74 H 02/23/19 07:23 Pulse Ox 99 02/23/19 07:23
[2019-02-23] MEDS: LOSARTAN POTASSIUM 25 MG TAB PO SCH (11:34)
[2019-02-23] MEDS: TRIAMTERENE/HCTZ 37.5/25MG CAP PO SCH (11:34)
--- NOTE | 2019-02-23 15:05 | Surgery Consultation ---
Date of Consultation February 23, 2019 Assessment & Plan (1) Partial bowel obstruction: Patient seen and examined with Dr. Ladd. Patient feeling better this AM. Denies abdominal pain, denies nausea or vomiting. Patient reports that she is hungry and would like to shower. Patient may shower and regular diet was ordered. We will see how she tolerates. AM Potassium improved to 3.6 General Surgery will continue to follow. History of Present Illness Reason for Consultation: Small bowel obstruction vs Post-Operative Ileus Attending Physician: Lance Chen MD History of Present Illness Ms. Hobbs is a 78-year-old female who is 9 days s/p p Laparoscopic Cholecystectomy; extensive enterolysis with and s/p Right Robotic Laparoscopic Parital Nephrectomy with Dr. Dutta. Patient returned to ED for evaluation of loose stools and right-sided abdominal pain for the last 5 days. In addition, she states that her abdomen was distended and she was nauseous, but denies any episodes of vomiting. In the ED a CT scan of abdomen and chest without contrast was completed which showed "fluid-filled dilated loops of small bowel without transition point- possible small bowel obstruction or ileus. Air- fluid levels throughout non-dilated loops of large bowel suggest diarrheal illness." WBC on admission was within normal limits, Potassium was low at 2.7. C. diff negative. Patient was admitted for further evaluation. Allergies Allergy/AdvReac Type Severity Reaction Status Date / Time cephalexin [From Keflex] Allergy Severe Hives Verified 02/22/19 14:58 adhesive Allergy Intermediate TAPE Verified 02/22/19 14:58 ALLERGY = "TEARS SKIN" clavulanic acid Allergy Mild vomiting/or Verified 02/22/19 14:58 [From Augmentin] rash bacitracin Allergy Unknown ALLERGY TO Verified 02/22/19 14:58 "TOPICAL ANTIBIOTICS" ?? Fish Containing Products Allergy Unknown UNKNOWN Verified 02/22/19 14:58 neomycin Allergy Unknown ALLERGY TO Verified 02/22/19 14:58 "TOPICAL ANTIBIOTICS" ?? polymyxin B Allergy Unknown ALLERGY TO Verified 02/22/19 14:58 "TOPICAL ANTIBIOTICS" ?? amoxicillin AdvReac Intermediate Vomiting Verified 02/22/19 14:58 nitrofurantoin AdvReac Intermediate FLU-LIKE Verified 02/22/19 14:58 SYMPTOMS Home Medications Home Medications Medication Instructions Recorded Confirmed Type Caltrate 600 + D 1 tab PO QPM 08/15/18 02/22/19 History cholecalciferol (vitamin D3) 2,000 unit PO QAM 08/15/18 02/22/19 History [Vitamin D3] cyanocobalamin (vitamin B-12) 500 mcg PO QAM 08/15/18 02/22/19 History [Vitamin B-12] fenofibrate nanocrystallized 0.5 tab PO HS 08/15/18 02/22/19 History folic acid 2 tab PO BID 08/15/18 02/22/19 History gabapentin 200 mg PO BID 08/15/18 02/22/19 History losartan 25 mg PO QAM 08/15/18 02/22/19 History omeprazole 40 mg PO QAM 08/15/18 02/22/19 History triamterene-hydrochlorothiazid 1 cap PO QAM 08/15/18 02/22/19 History zolpidem 5 - 10 mg PO HS PRN 08/15/18 02/22/19 History diphenhydramine HCl [Benadryl 25 mg PO Q8H PRN #30 tab 08/16/18 02/22/19 Rx Allergy] acetaminophen [Tylenol Extra 1,000 mg PO Q6H PRN 02/14/19 02/22/19 History Strength] docusate sodium [Colace] 100 mg PO BID PRN #60 cap 02/19/19 02/22/19 Rx oxycodone 5 mg PO Q6H PRN #14 tab 02/19/19 02/22/19 Rx enoxaparin [Lovenox] 80 mg SUBCUT DAILY 02/22/19 02/22/19 History Patient History Medical History Cardiac murmur Per 07/2018 echo: Mild MR and TR. Mild aortic calcification without hemodynamically significant valvular aortic stenosis. Cholelithiasis Chronic UTI (urinary tract infection) Chronic back pain GERD (gastroesophageal reflux disease) History of colon cancer s/p R hemicolectomy 1989. +Chemo. 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 Hyperlipidemia Hypertension Kidney stones HX OF Osteoarthritis Osteopenia Pre-diabetes Renal mass Surgical History Fusion of spine LUMBAR L3-L5, AND CERVICAL 3-4 WITH FULL ROM H/O hemicolectomy History of section X2 History of colonoscopy History of hysterectomy ARMANDO WITH OOPHRECTOMY History of laminectomy LUMBAR History of open reduction and internal fixation (ORIF) procedure RIGHT LEG History of parathyroidectomy X2 History of parotid gland excision LEFT Hx of cystoscopy with urethral stent placement Family History Other No pertinent family history Social History Preferred Language: Portuguese Communication Ability: Effective Manager Quality Required: No Beliefs That Will Affect Care: None Current Living Situation: Alone Other Information That Helps Us Care for You: No Feels Safe at Home: Yes Safety Concerns: Feels Safe At This Time Smoking Status: Never smoker Hx Alcohol Use: Yes Hx Substance Use: No Physical Exam Vital Signs (Past 24 Hours): Last Vital Signs Temp 36.7 C 02/23/19 07:23 Pulse 88 02/23/19 07:23 Resp 18 02/23/19 07:23 BP 182/74 H 02/23/19 07:23 Pulse Ox 99 02/23/19 07:23 Gastrointestinal (Abdomen): Inspection/Auscultation: + abdomen distended and + abdominal surgical incision Percussion/Palpation: + abdomen tender (mild tenderness with palpation. ) and abdomen soft (1) Partial bowel obstruction Intestinal obstruction type: unspecified Qualified Code(s): K56.600 - Partial intestinal obstruction, unspecified as to cause
--- NOTE | 2019-02-23 16:58 | Hospitalist Progress Note ---
Date of Service February 23, 2019 Assessment & Plan (1) Partial bowel obstruction: 1) Partial SBO -most probable that in the absence of a transition point, nausea or vomiting that this constitutes a post-op ileus. She is afebrile without leukocytosis so that a post op GI infection is not likely at present. Supportive care, gradual increase in diet. 2) Hypokalemia - Mag and K provided -improved 3) HTN -home meds, follow 4) HLD - Fenofibrate held for now 5) Regarding her recent diagnosis of CA - this was effectively excised - she will follow with urology for serial imaging in the oupt setting. Full code - Lovenox prophylaxis Appears to be improving, would anticipate a discharge plan home once she is eating and drinking well. Subjective Feeling better, cautiously optimistic to eat. Abdominal pain feels better, no nausea or vomiting. Surgery and urology input appreciated. Review of Systems All systems reviewed & are unremarkable except as noted in HPI & below Physical Exam Vital Signs (Past 24 Hours): Last Vital Signs Temp 36.9 C 02/23/19 15:09 Pulse 91 H 02/23/19 15:09 Resp 18 02/23/19 15:09 BP 174/84 H 02/23/19 15:09 Pulse Ox 97 02/23/19 15:09 Physical Exam: In general she is awake alert oriented x3, pleasant no distress. HEENT normocephalic atraumatic mucous membranes moist. Breathing is unlabored no accessory muscle use. Skin shows no rashes no pallor or icterus. Mental status is good and intact, neuro shows cranial nerves II through XII grossly intact gross motor and sensory intact. (1) Partial bowel obstruction Intestinal obstruction type: unspecified Qualified Code(s): K56.600 - Partial intestinal obstruction, unspecified as to cause
[2019-02-23] MEDS ORDERED: HydrALAZINE HCL 20 MG/ML VIAL ONE (19:50)
[2019-02-23] MEDS: HydrALAZINE HCL 20 MG/ML VIAL IV PRN (19:52)
[2019-02-24 01:12] LABS: Appearance Urine Cloudy (Clear); Bacteria Urine Automated 4+ (Negative); Bilirubin Urine Negative (Negative); Blood Urine 1+ (Negative); Color Urine Yellow; Glucose Urine UA Negative (Negative); Ketones Urine Negative (Negative); Leukocyte Esterase Urine 2+ (Negative); Nitrite Urine Positive (Negative); Protein Urine Negative (Negative); Specific Gravity Urine 1.016 (1.000-1.030); Urobilinogen Urine Negative (Negative); WBC Urine Automated >30 /hpf (0-5); pH Urine 5.5 (4.5-7.5)
[2019-02-24] MEDS: METOCLOPRAMIDE HCL INJ 5 MG/ML 2 ML VIAL IV SCH ×2 (06:22→13:40)
[2019-02-24] MEDS: LOSARTAN POTASSIUM 25 MG TAB PO SCH (08:55)
[2019-02-24] MEDS: TRIAMTERENE/HCTZ 37.5/25MG CAP PO SCH (08:56)
[2019-02-24] MEDS: GABAPENTIN 100 MG CAP PO SCH ×2 (08:56→21:23)
[2019-02-24] MEDS: ENOXAPARIN INJ 40 MG/0.4 ML SYR SQ SCH (08:56)
--- NOTE | 2019-02-24 09:29 | Hospitalist Progress Note ---
Date of Service February 24, 2019 Assessment & Plan (1) Partial bowel obstruction: 1) patient presents with a partial SBO most recently had a right partial nephrectomy and cholecystectomy. The right partial nephrectomy did show renal cell carcinoma which appeared to have good margins based upon pathology, her small bowel obstruction is likely partial given the absence of a transition point seen on imaging, this may also be considered a post-op ileus. She remains afebrile, post op GI infection is not likely at present. Surgery is followed in reviewing x-rays on 02/24 feels this is been persistent are considering small bowel follow-through in the a.m. On 02/24 she did have some stool production this is encouraging 2) Hypokalemia - Mag and K provided -improved 3) HTN -home meds, follow 4) HLD - Fenofibrate held for now 5) Regarding her recent diagnosis of CA - this was effectively excised - she will follow with urology for serial imaging in the oupt setting. Full code - Lovenox prophylaxis Subjective Patient had some slight production of waist today however surgery reviewed her KUB and feels she likely still has a partial small bowel obstruction and there perhaps planning on a small bowel follow-through the a.m. per patient's pain is controlled, she is tolerating liquid oral intake Review of Systems ROS: well nourished well developed. No double vision blurry vision No problems with speech or swallowing No palpitations, chest pain or pressure No Wheezing or breathing issues Persistent generalized abdominal pain with mild nausea and diarrhea but no vomiting No burning urine urine frequency or changes in color No focal joint pain or muscle pain No skin rashes or oral lesions No unusual bruising or bleeding No focused back pain or numbness or loss of strength No changes in memory or confusion Physical Exam Vital Signs (Past 24 Hours): Last Vital Signs Temp 36.9 C 02/24/19 07:46 Pulse 90 02/24/19 07:46 Resp 16 02/24/19 07:46 BP 174/74 H 02/24/19 07:46 Pulse Ox 95 02/24/19 07:46 The patient appeared in mild to moderate distress Vital signs as documented. Head exam is unremarkable. normocephalic, atraumatic Neck is without jugular venous distension, thyromegaly, or lymphademopathy Lungs are clear to auscultation and no focal air loss Cardiac exam reveals Rhythm is regular. First and second heart sounds normal. Abdominal exam reveals hypoactive bowel sounds, soft no guarding no acute abdomen no masses, no organomegaly Extremities are nonedematous and both pedal pulses are present Neurologic exam is A&Ox3, no focal deficits, strength is equal bilateral Psychologically seems neither anxious or depressed Skin is warm Dry without bruises or lesions (1) Partial bowel obstruction Intestinal obstruction type: unspecified Qualified Code(s): K56.600 - Partial intestinal obstruction, unspecified as to cause
[2019-02-24] MEDS: HydrALAZINE HCL 20 MG/ML VIAL IV PRN (09:55)
--- NOTE | 2019-02-24 12:10 | XRay Report ---
KUB HISTORY: Follow-up study in a patient with small bowel obstruction and persistent abdominal distentio n SBO COMPARISON: CT abdomen and pelvis 02/22/2019 FINDINGS: Persistent small bowel distention is noted with dilated air-filled loops of small bowel rogers suring up to 4.4 cm. Findings appear to have slightly decreased from comparison. Surgical suture mate rial surgical clips are again noted throughout the right abdomen. No pneumatosis or pneumoperitoneum. Fusion hardware of the lower lumbar spine. Degenerative changes of the spine, pelvis and hips. IMPRESSION: 1. Persistent small bowel distention, slightly improved from comparison is suggestive of ongoing smal l bowel obstruction. 2. No pneumatosis or pneumoperitoneum. Electronically signed by: Kenan Fritz M.D. 02/24/2019 12:09 PM
[2019-02-24 12:15] LABS: Calcium 9.6 mg/dl (8.5-10.1); Creatinine Clr Calc Pharmacy 46.3 ml/min; Est GFR (African American) 76.6; Est GFR (Non-African American) 66.1; Potassium 3.3 mmol/L (3.5-5.1)
--- NOTE | 2019-02-24 13:16 | Surgery Progress Note ---
Date of Service February 24, 2019 Assessment & Plan (1) Partial bowel obstruction: 02/24/2019 Patient seen and examined with Dr. Ladd Feels ok today- still bloated and distended. Denies nausea. Not feeling very hungry. Repeated KUB- shows persistent small bowel distention, maybe some slight improvement. ongoing obstruction Potassium repeated 3.3 (down from 3.6 yesterday)- will add back IVF with 20meq of KCl. Will recheck CBC and BMP in AM. Will discuss patient with Dr. Sanchez tomorrow AM. May want to consider Upper GI with SBFT. Will make patient NPO at midnight in case Dr. Sanchez wants to do additional imaging. 02/23/2019 Patient seen and examined with Dr. Ladd. Patient feeling better this AM. Denies abdominal pain, denies nausea or vomiting. Patient reports that she is hungry and would like to shower. Patient may shower and regular diet was ordered. We will see how she tolerates. AM Potassium improved to 3.6 General Surgery will continue to follow. Subjective Patient tearful this AM because it is her son's birthday and she wishes she was with him. Doing ok- still have multiple loose bowel movements. States that it might be a bit more formed today. Not feeling hungry. Physical Exam Vital Signs (Past 24 Hours): Last Vital Signs Temp 36.9 C 02/24/19 12:49 Pulse 90 02/24/19 12:49 Resp 16 02/24/19 12:49 BP 190/85 H 02/24/19 12:49 Pulse Ox 95 02/24/19 12:49 Gastrointestinal (Abdomen): Inspection/Auscultation: + abdomen distended (1) Partial bowel obstruction Intestinal obstruction type: unspecified Qualified Code(s): K56.600 - Partial intestinal obstruction, unspecified as to cause
[2019-02-24] MEDS: D5NSS + 20MEQ KCL 20 MEQ/1,000 ML BAG IV SCH ×2 (13:40→23:25)
--- NOTE | 2019-02-24 20:33 | Progress Note ---
Date of Service February 24, 2019 Nurse called to relay pt concern about R elbow pain and erythema development. Pt concerned may be developing cellulitis Pt evaluated: 3cm region of mild erythema and warmth over lateral epicondyle region with TTP of epicondyle. Pt has mildly limited extension and flexion due to pain. Region marked with surgical pen. Concern for possible cellulitis vs. joint inflammation If erythema continues to spread will start abx Started on voltaren gel QID to help with possible joint inflammation Physical Exam Vital Signs (Past 24 Hours): Last Vital Signs Temp 36.9 C 02/24/19 15:06 Pulse 89 02/24/19 15:06 Resp 18 02/24/19 15:06 BP 151/69 H 02/24/19 15:06 Pulse Ox 97 02/24/19 15:06
[2019-02-24] MEDS: DICLOFENAC SOD 1% GEL 100 GM TUBE EXT SCH (21:23)
[2019-02-24] MEDS: ZOLPIDEM TARTRATE 5 MG TAB PO PRN (23:42)
[2019-02-25 06:59] LABS: Basophils # (auto) 0.03 K/uL (0-0.2); Basophils % (auto) 0.3 %; Eosinophils # (auto) 0.77 K/uL (0-0.5); Eosinophils % (auto) 7.6 %; Hematocrit (blood only) 26.3 % (37-47); Hemoglobin 8.4 g/dL (12.0-16.0); Immature Granulocytes # (auto) 0.33 K/uL (0.00-0.02); Immature Granulocytes % (auto) 3.2 %; Lymphocytes # (auto) 2.01 K/uL (1.2-3.4); Lymphocytes % (auto) 19.7 %; Mean Corpuscular Hgb Conc 31.9 g/dL (32-36); Mean Corpuscular Volume 82.7 fL (80-100); Mean Platelet Volume 8.3 fL (7.4-10.4); Monocytes # (auto) 0.79 K/uL (0.11-0.59); Monocytes % (auto) 7.8 %; Neutrophils # (auto) 6.26 K/uL (1.4-6.5); Neutrophils % (auto) 61.4 %; Platelet Count 455 K/uL (130-400); RDW Standard Deviation 47.8 fL (36.4-46.3); Red Blood Count 3.18 M/uL (4.2-5.4); White Blood Count 10.19 K/uL (4.8-10.8)
[2019-02-25 07:37] LABS: BUN Creatinine Ratio 11.4 (10-20); Calcium 8.8 mg/dl (8.5-10.1); Creatinine Clr Calc Pharmacy 55.4 ml/min; Est GFR (African American) 95.2; Est GFR (Non-African American) 82.2; Potassium 3.4 mmol/L (3.5-5.1)
--- NOTE | 2019-02-25 09:12 | Surgery Progress Note ---
Date of Service February 25, 2019 Assessment & Plan (1) Partial bowel obstruction: 02/25/2019 Patient seen and examined with Dr. Ladd Still not feeling hungry. Denies nausea. Abdomen distended. Patient NPO. Dr. Ladd to speak with Dr. Sanchez regarding SBFT. 02/24/2019 Patient seen and examined with Dr. Ladd Feels ok today- still bloated and distended. Denies nausea. Not feeling very hungry. Repeated KUB- shows persistent small bowel distention, maybe some slight impr ovement. ongoing obstruction Potassium repeated 3.3 (down from 3.6 yesterday)- will add back IVF with 20meq of KCl. Will recheck CBC and BMP in AM. Will discuss patient with Dr. Sanchez tomorrow AM. May want to consider Upper GI with SBFT. Will make patient NPO at midnight in case Dr. Sanchez wants to do additional imaging. 02/23/2019 Patient seen and examined with Dr. Ladd. Patient feeling better this AM. Denies abdominal pain, denies nausea or vomiting. Patient reports that she is hungry and would like to shower. Patient may shower and regular diet was ordered. We will see how she tolerates. AM Potassium improved to 3.6 General Surgery will continue to follow. Subjective Doing about the same- still have multiple loose bowel movements. Not feeling hungry. Denies nausea, feels bloated and distended. Physical Exam Vital Signs (Past 24 Hours): Last Vital Signs Temp 36.8 C 02/25/19 07:20 Pulse 79 02/25/19 07:20 Resp 18 02/25/19 07:20 BP 150/70 H 02/25/19 07:20 Pulse Ox 97 02/25/19 07:20 Gastrointestinal (Abdomen): Inspection/Auscultation: + abdomen distended and + abdominal surgical incision Percussion/Palpation: + abdomen tender (mild tenderness with palpation. ) (1) Partial bowel obstruction Intestinal obstruction type: unspecified Qualified Code(s): K56.600 - Partial intestinal obstruction, unspecified as to cause
[2019-02-25] MEDS: D5NSS + 20MEQ KCL 20 MEQ/1,000 ML BAG IV SCH (09:42)
[2019-02-25] MEDS: ENOXAPARIN INJ 40 MG/0.4 ML SYR SQ SCH ×2 (09:43→13:29)
[2019-02-25] MEDS: DICLOFENAC SOD 1% GEL 100 GM TUBE EXT SCH ×4 (09:44→20:56)
[2019-02-25] MEDS: TRIAMTERENE/HCTZ 37.5/25MG CAP PO SCH (11:58)
[2019-02-25] MEDS: LOSARTAN POTASSIUM 25 MG TAB PO SCH (11:58)
--- NOTE | 2019-02-25 12:06 | Hospitalist Progress Note ---
Date of Service February 25, 2019 Assessment & Plan (1) Partial bowel obstruction: partial SBO most recently had a right partial nephrectomy and cholecystectomy. The right partial nephrectomy did show renal cell carcinoma which appeared to have good margins based upon pathology, her small bowel obstruction is likely partial given the absence of a transition point seen on imaging, this may also be considered a post-op ileus. moving bowels, pure liquid diarrhea allowed to eat today K low at 3.4, replaced surgery may order SBFT tomorrow depending on clinical course (2) Hypokalemia: 3.4 this morning, K in IV fluids will order additional K riders since fluids will be changed hold Triamterene/HCTZ (3) Metabolic acidosis with normal anion gap and bicarbonate losses: due to diarrhea, reports watery bowels, several times Na and Cl both high, will stop NSS change to HCO3 150mEq with D5 at 100cc/hr this is non-gapped acidosis due to diarrhea (4) HTN (hypertension): increase Losartan from 25mg to 50mg to help with low potassium hold Triamterene/HCTZ for now (5) Right elbow pain: joint is warm but not hot, better ROM today minimal erythema, doubt cellulitis responding well to Voltaren gel, continue this for a few days Subjective patient continues to have liquid stools, moved twice this morning mild abdominal pain, feels distended, no nausea or vomiting stools are pure liquid, no blood seen no chest pain, no dyspnea she has an appetite and wants to know if there are still plans for SBFT today reviewed labs, Na and Cl high, HCO3 low at 19 with normal gap would fit with non-gap metabolic acidosis from the diarrhea discussed medications, would increase Losartan and hold Triamterene/HCTZ due to low K at 3.4 Review of Systems All systems reviewed & are unremarkable except as noted in HPI & below Gastrointestinal: + diarrhea/loose stools; no abdominal pain, no early satiety, no nausea, no vomiting and no constipation Physical Exam Vital Signs (Past 24 Hours): Last Vital Signs Temp 36.8 C 02/25/19 07:20 Pulse 79 02/25/19 07:20 Resp 18 02/25/19 07:20 BP 150/70 H 02/25/19 07:20 Pulse Ox 97 02/25/19 07:20 Constitutional: WD/WN, vitals as above Eyes: PERRL, conjunctivae normal, anicteric sclerae ENMT: external ear and nose normal, oropharynx normal Neck: trachea midline, no thyromegaly Respiratory: normal respiratory effort, lungs clear to auscultation Cardiovascular: RRR, no murmur, no edema Gastrointestinal (Abdomen): Inspection/Auscultation: + abdomen distended; + abnormal bowel sounds (hypoactive) Percussion/Palpation: + abdomen tender (mildly) and abdomen soft; no guarding Musculoskeletal: no cyanosis or clubbing, extremities motor strength 5/5 Skin: no rashes, warm and dry Neurologic: patellar DTR's 2+ bilat, sensation intact and PERRL, EOMI, accommodation nl, no face palsy, no dysarthria Psychiatric: A+Ox3, euthymic affect Lymphatic: no cervical or axillary lymphadenopathy Results & Data Laboratory Results Laboratory Results - last 24 hr 02/24/19 02/25/19 02/25/19 11:27 06:37 06:37 WBC 10.19 RBC 3.18 L Hgb 8.4 L Hct 26.3 L MCV 82.7 MCH 26.4 MCHC 31.9 L RDW Std Deviation 47.8 H RDW Coeff of Anahi 16.0 H Plt Count 455 H MPV 8.3 Immature Gran % (Auto) 3.2 Neut % (Auto) 61.4 Lymph % (Auto) 19.7 [place] % (Auto) 7.8 Eos % (Auto) 7.6 Baso % (Auto) 0.3 Immature Gran # (Auto) 0.33 H Neut # (Auto) 6.26 Lymph # (Auto) 2.01 [place] # (Auto) 0.79 H Eos # (Auto) 0.77 H Baso # (Auto) 0.03 Hypersegmented Neuts 1+ Sodium 143 147 H Potassium 3.3 L 3.4 L Chloride 116 H 119 H Carbon Dioxide 21 19 L Anion Gap 7.0 9.0 BUN 9 D 8 Creatinine 0.85 0.71 Est Cr Clr Drug Dosing 46.3 55.4 Est GFR ( Amer) 76.6 95.2 Est GFR (Non-Af Amer) 66.1 82.2 BUN/Creatinine Ratio 11.0 11.4 Glucose 117 H 106 H Calcium 9.6 8.8 Medications Administered Current Inpatient Medications Acetaminophen (Tylenol) 1,000 mg PO Q8H PRN PRN Reason: Pain Stop: 03/24/19 22:16 Diclofenac Sodium (Voltaren 1% Top) 1 appln EXT QID [facility] Stop: 03/26/19 20:59 Last Admin: 02/25/19 09:44 Dose: 1 appln Documented by: Enoxaparin Sodium (Lovenox) 40 mg SQ DAILY [facility] Stop: 03/26/19 08:59 Last Admin: 02/25/19 09:43 Dose: Not Given Documented by: Gabapentin (Neurontin) 200 mg PO BID [facility] Stop: 03/24/19 22:16 Last Admin: 02/24/19 21:23 Dose: 200 mg Documented by: Hydralazine HCl (Hydralazine Hcl) 10 mg IV Q6H PRN PRN Reason: bp Stop: 03/25/19 19:44 Last Admin: 02/24/19 09:55 Dose: 10 mg Documented by: Lorazepam (Ativan) 0.5 mg in 1 mls @ 1 mls/min IV Q8H PRN PRN Reason: Anxiety/Insomnia Stop: 03/24/19 22:16 Acetaminophen (Ofirmev) 1,000 mg in 100 mls @ 400 mls/hr IV Q8H PRN PRN Reason: Pain Stop: 03/25/19 02:54 Sodium Bicarbonate 150 meq/ (Dextrose) 1,150 mls @ 100 mls/hr IV .[id number] [facility] Stop: 03/27/19 11:44 Losartan Potassium (Cozaar) 50 mg PO QAM [facility] Stop: 03/28/19 08:59 Tramadol HCl (Ultram) 50 mg PO Q4H PRN PRN Reason: Pain Stop: 03/25/19 02:54 Zolpidem Tartrate (Ambien) 5 mg PO HS PRN PRN Reason: Sleep Stop: 03/26/19 00:10 Last Admin: 02/24/19 23:42 Dose: 5 mg Documented by: (1) Partial bowel obstruction Intestinal obstruction type: unspecified Qualified Code(s): K56.600 - Partial intestinal obstruction, unspecified as to cause
[2019-02-25] MEDS: GABAPENTIN 100 MG CAP PO SCH ×2 (13:29→20:56)
[2019-02-25] MEDS: SODIUM BICARBONATE 8.4% 150 MEQ in DEXTROSE 5% 1,000 ML IV SCH (14:41)
[2019-02-25] MEDS: ZOLPIDEM TARTRATE 5 MG TAB PO PRN (23:29)
[2019-02-26] MEDS: SODIUM BICARBONATE 8.4% 150 MEQ in DEXTROSE 5% 1,000 ML IV SCH (01:55)
[2019-02-26] MEDS: HydrALAZINE HCL 20 MG/ML VIAL IV PRN ×2 (03:33→11:07)
[2019-02-26 07:11] LABS: Basophils # (auto) 0.04 K/uL (0-0.2); Basophils % (auto) 0.4 %; Eosinophils % (auto) 7.2 %; Hematocrit (blood only) 24.9 % (37-47); Immature Granulocytes # (auto) 0.18 K/uL (0.00-0.02); Immature Granulocytes % (auto) 1.9 %; Lymphocytes # (auto) 1.75 K/uL (1.2-3.4); Lymphocytes % (auto) 18.1 %; Mean Corpuscular Hgb Conc 32.1 g/dL (32-36); Mean Corpuscular Volume 82.7 fL (80-100); Mean Platelet Volume 8.2 fL (7.4-10.4); Monocytes # (auto) 0.68 K/uL (0.11-0.59); Neutrophils # (auto) 6.32 K/uL (1.4-6.5); Neutrophils % (auto) 65.4 %; Platelet Count 413 K/uL (130-400); RDW Coefficient of Variation 16.1 % (11.5-14.5); RDW Standard Deviation 48.5 fL (36.4-46.3); Red Blood Count 3.01 M/uL (4.2-5.4); White Blood Count 9.67 K/uL (4.8-10.8)
[2019-02-26 07:33] LABS: RBC Morphology Unremarkable
[2019-02-26 07:45] LABS: BUN Creatinine Ratio 14.1 (10-20); Calcium 8.3 mg/dl (8.5-10.1); Creatinine Clr Calc Pharmacy 66.7 ml/min; Est GFR (African American) 102.5; Est GFR (Non-African American) 88.4; Potassium 2.8 mmol/L (3.5-5.1)
[2019-02-26] MEDS ORDERED: POTASSIUM CHLORIDE / WTR 10 MEQ/100 ML PLCT IV STA (07:51)
--- NOTE | 2019-02-26 08:37 | Surgery Progress Note ---
Date of Service February 26, 2019 Assessment & Plan (1) Partial bowel obstruction: ileus vs SBO will check KUB can have AM meds as above. recent KUB shows resolution of her small bowel dilation no n/v. no pain. will try full liquids. if tolerates can have food tomorrow. Subjective BMs like pudding, no other flatus, no nausea Physical Exam Vital Signs (Past 24 Hours): Last Vital Signs Temp 36.9 C 02/26/19 07:57 Pulse 83 02/26/19 07:57 Resp 16 02/26/19 07:57 BP 195/77 H 02/26/19 07:57 Pulse Ox 97 02/26/19 07:57 Gastrointestinal (Abdomen): Inspection/Auscultation: + abdomen distended Percussion/Palpation: abdomen nontender (1) Partial bowel obstruction Intestinal obstruction type: unspecified Qualified Code(s): K56.600 - Partial intestinal obstruction, unspecified as to cause
[2019-02-26] MEDS: D5W AND 1/2NSS + 40MEQ KCL 40 MEQ/1,000 ML BAG IV SCH ×2 (08:38→18:48)
[2019-02-26] MEDS: GABAPENTIN 100 MG CAP PO SCH ×2 (08:42→21:15)
[2019-02-26] MEDS: DICLOFENAC SOD 1% GEL 100 GM TUBE EXT SCH ×4 (08:43→21:15)
[2019-02-26] MEDS: POTASSIUM CHLORIDE / WTR 10 MEQ/100 ML PLCT IV SCH ×2 (08:44→11:45)
[2019-02-26] MEDS ORDERED: LOSARTAN POTASSIUM 50 MG TAB PO SCH (09:00)
--- NOTE | 2019-02-26 09:22 | XRay Report ---
KUB CLINICAL HISTORY: ileus/SBO COMPARISON STUDY: CT of the abdomen and pelvis February 22, 2019. KUB February 24, 2019. FINDINGS: Postoperative findings within the spine are noted. Multiple staple lines are noted. Small b owel dilatation has resolved. There are scattered small and large bowel gas. IMPRESSION: Interval resolution of small bowel dilatation. Electronically signed by: Fred Patel M.D. 02/26/2019 9:21 AM
[2019-02-26] MEDS: POTASSIUM CHLORIDE 20 MEQ TABCR PO SCH ×3 (09:50→21:15)
[2019-02-26] MEDS: ENOXAPARIN INJ 40 MG/0.4 ML SYR SQ SCH (09:52)
--- NOTE | 2019-02-26 12:43 | Hospitalist Progress Note ---
Date of Service February 26, 2019 Assessment & Plan (1) Partial bowel obstruction: partial SBO most recently had a right partial nephrectomy and cholecystectomy. The right partial nephrectomy did show renal cell carcinoma which appeared to have good margins based upon pathology, her small bowel obstruction is likely partial given the absence of a transition point seen on imaging, this may also be considered a post-op ileus. KUB 02/26 shows resolution of dilated loops of bowel, no signs of ileus has bowel sounds, moving bowels, slightly more formed advance diet to full liquids today ambulating a lot K low at 2.8, see below (2) Hypokalemia: K is low at 2.8 this morning, want it closer to 4.0 with bowel issues will place on K Cl 20mEq TID, 20mEq of K riders ordered place 40mEq in IV fluids repeat K tomorrow on Losartan which should help raise K stopped HCTZ yesterday (3) Metabolic acidosis with normal anion gap and bicarbonate losses: due to diarrhea, reports watery bowels, several times Na and Cl both high HCO3 up to 26 today with Sodium Bicarb yesterday change fluids back to NSS today as acidosis resolved (4) HTN (hypertension): BP all markedly elevated despite increasing Losartain from 25mg to 50mg will increase to 50mg BID starting this evening (5) Right elbow pain: responding well to Voltaren gel, continue this for a few days no complaints today Subjective patient feeling a little better today still moving bowels, slightly more formed today no abdominal pain, no vomiting advanced to full liquid diet by surgery KUB shows resolution of SBO, no ileus labs show that acidosis resolved however, K low again at 2.8, will replace patient ambulating in the hallway frequently, three times already today Review of Systems All systems reviewed & are unremarkable except as noted in HPI & below Gastrointestinal: + diarrhea/loose stools; no abdominal pain, no nausea, no vomiting and no constipation Physical Exam Vital Signs (Past 24 Hours): Last Vital Signs Temp 36.9 C 02/26/19 07:57 Pulse 83 02/26/19 07:57 Resp 16 02/26/19 07:57 BP 181/69 H 02/26/19 11:06 Pulse Ox 97 02/26/19 07:57 Constitutional: WD/WN, vitals as above Eyes: PERRL, conjunctivae normal, anicteric sclerae ENMT: external ear and nose normal, oropharynx normal Neck: trachea midline, no thyromegaly Respiratory: normal respiratory effort, lungs clear to auscultation Cardiovascular: RRR, no murmur, no edema Gastrointestinal (Abdomen): Inspection/Auscultation: + abdomen distended and normal bowel sounds Percussion/Palpation: + abdomen tender (mildly) and abdomen soft; no guarding Musculoskeletal: no cyanosis or clubbing, extremities motor strength 5/5 Skin: no rashes, warm and dry Neurologic: patellar DTR's 2+ bilat, sensation intact and PERRL, EOMI, accommodation nl, no face palsy, no dysarthria Psychiatric: A+Ox3, euthymic affect Lymphatic: no cervical or axillary lymphadenopathy Results & Data Laboratory Results Laboratory Results - last 24 hr 02/26/19 02/26/19 06:50 06:50 WBC 9.67 RBC 3.01 L Hgb 8.0 L Hct 24.9 L MCV 82.7 MCH 26.6 MCHC 32.1 RDW Std Deviation 48.5 H RDW Coeff of Anahi 16.1 H Plt Count 413 H MPV 8.2 Immature Gran % (Auto) 1.9 Neut % (Auto) 65.4 Lymph % (Auto) 18.1 Holmes % (Auto) 7.0 Eos % (Auto) 7.2 Baso % (Auto) 0.4 Immature Gran # (Auto) 0.18 H Neut # (Auto) 6.32 Lymph # (Auto) 1.75 Holmes # (Auto) 0.68 H Eos # (Auto) 0.70 H Baso # (Auto) 0.04 RBC Morphology Unremarkable Sodium 146 H Potassium 2.8 L D Chloride 112 H Carbon Dioxide 26 Anion Gap 8.0 BUN 8 Creatinine 0.59 L Est Cr Clr Drug Dosing 66.7 Est GFR ( Amer) 102.5 Est GFR (Non-Af Amer) 88.4 BUN/Creatinine Ratio 14.1 Glucose 107 H Calcium 8.3 L Diagnostic Findings KUB CLINICAL HISTORY: ileus/SBO COMPARISON STUDY: CT of the abdomen and pelvis February 22, 2019. KUB February 24, 2019. FINDINGS: Postoperative findings within the spine are noted. Multiple staple lines are noted. Small bowel dilatation has resolved. There are scattered small and large bowel gas. IMPRESSION: Interval resolution of small bowel dilatation. Medications Administered Current Inpatient Medications Acetaminophen (Tylenol) 1,000 mg PO Q8H PRN PRN Reason: Pain Stop: 03/24/19 22:16 Diclofenac Sodium (Voltaren 1% Top) 1 appln EXT QID [facility]RY Stop: 03/26/19 20:59 Last Admin: 02/26/19 08:43 Dose: 1 appln Documented by: Enoxaparin Sodium (Lovenox) 40 mg SQ DAILY [facility]ENRY Stop: 03/26/19 08:59 Last Admin: 02/26/19 09:52 Dose: 40 mg Documented by: Gabapentin (Neurontin) 200 mg PO BID HENRY Stop: 03/24/19 22:16 Last Admin: 02/26/19 08:42 Dose: 200 mg Documented by: Hydralazine HCl (Hydralazine Hcl) 10 mg IV Q6H PRN PRN Reason: bp Stop: 03/25/19 19:44 Last Admin: 02/26/19 11:07 Dose: 10 mg Documented by: Lorazepam (Ativan) 0.5 mg in 1 mls @ 1 mls/min IV Q8H PRN PRN Reason: Anxiety/Insomnia Stop: 03/24/19 22:16 Acetaminophen (Ofirmev) 1,000 mg in 100 mls @ 400 mls/hr IV Q8H PRN PRN Reason: Pain Stop: 03/25/19 02:54 Last Infusion: 02/26/19 06:09 Dose: Infused Documented by: Potassium Chloride/Dextrose/Sod Cl (D5w And 1/2nss + 40meq Kcl) 40 meq in 1,000 mls @ 100 mls/hr IV .Q10H HENRY Stop: 02/27/19 04:29 Last Infusion: 02/26/19 09:49 Dose: 100 mls/hr Documented by: Losartan Potassium (Cozaar) 50 mg PO BID HENRY Stop: 03/28/19 20:59 Potassium Chloride (Klor-Con M20) 20 meq PO TID HENRY Stop: 03/28/19 08:59 Last Admin: 02/26/19 09:50 Dose: 20 meq Documented by: Tramadol HCl (Ultram) 50 mg PO Q4H PRN PRN Reason: Pain Stop: 03/25/19 02:54 Zolpidem Tartrate (Ambien) 5 mg PO HS PRN PRN Reason: Sleep Stop: 03/26/19 00:10 Last Admin: 02/25/19 23:29 Dose: 5 mg Documented by: (1) Partial bowel obstruction Intestinal obstruction type: unspecified Qualified Code(s): K56.600 - Partial intestinal obstruction, unspecified as to cause
[2019-02-26] MEDS: ACETAMINOPHEN 500 MG TAB PO PRN (14:02)
[2019-02-26] MEDS: LOSARTAN POTASSIUM 50 MG TAB PO SCH (21:20)
[2019-02-27] MEDS: ZOLPIDEM TARTRATE 5 MG TAB PO PRN ×2 (00:18→23:19)
[2019-02-27 07:35] LABS: Basophils # (auto) 0.04 K/uL (0-0.2); Basophils % (auto) 0.4 %; Eosinophils # (auto) 0.71 K/uL (0-0.5); Eosinophils % (auto) 6.6 %; Hematocrit (blood only) 26.3 % (37-47); Hemoglobin 8.3 g/dL (12.0-16.0); Immature Granulocytes # (auto) 0.13 K/uL (0.00-0.02); Immature Granulocytes % (auto) 1.2 %; Lymphocytes # (auto) 1.74 K/uL (1.2-3.4); Lymphocytes % (auto) 16.3 %; Mean Corpuscular Hgb Conc 31.6 g/dL (32-36); Mean Platelet Volume 8.3 fL (7.4-10.4); Monocytes # (auto) 0.62 K/uL (0.11-0.59); Monocytes % (auto) 5.8 %; Neutrophils # (auto) 7.46 K/uL (1.4-6.5); Neutrophils % (auto) 69.7 %; Platelet Count 416 K/uL (130-400); RDW Coefficient of Variation 16.4 % (11.5-14.5); RDW Standard Deviation 49.8 fL (36.4-46.3); Red Blood Count 3.13 M/uL (4.2-5.4)
[2019-02-27 08:01] LABS: BUN Creatinine Ratio 8.6 (10-20); Calcium 8.8 mg/dl (8.5-10.1); Creatinine Clr Calc Pharmacy 49.8 ml/min; Est GFR (African American) 83.7; Est GFR (Non-African American) 72.2; Potassium 4.5 mmol/L (3.5-5.1)
[2019-02-27 08:11] LABS: Polychromasia 1+; Toxic Granulation 1+
--- NOTE | 2019-02-27 08:42 | Surgery Progress Note ---
Date of Service February 27, 2019 Assessment & Plan (1) Cholecystitis: doing better advance diet, if tolerates diet can probably be d/c'd home soon. Subjective no changes/feeling ok. no n/v. no pain. darian full liquids Physical Exam Vital Signs (Past 24 Hours): Last Vital Signs Temp 36.9 C 02/27/19 07:29 Pulse 87 02/27/19 07:29 Resp 18 02/27/19 07:29 BP 172/80 H 02/27/19 07:29 Pulse Ox 96 02/27/19 07:29 Physical Exam: soft. nt. less distended. nad
[2019-02-27] MEDS: LOSARTAN POTASSIUM 50 MG TAB PO SCH ×2 (09:05→21:23)
[2019-02-27] MEDS: DICLOFENAC SOD 1% GEL 100 GM TUBE EXT SCH ×4 (09:06→21:23)
[2019-02-27] MEDS: GABAPENTIN 100 MG CAP PO SCH ×2 (09:06→21:24)
[2019-02-27] MEDS: POTASSIUM CHLORIDE 20 MEQ TABCR PO SCH (09:06)
[2019-02-27] MEDS: ENOXAPARIN INJ 40 MG/0.4 ML SYR SQ SCH (09:06)
--- NOTE | 2019-02-27 13:18 | Hospitalist Progress Note ---
Date of Service February 27, 2019 Assessment & Plan (1) Partial bowel obstruction: partial SBO most recently had a right partial nephrectomy and cholecystectomy. The right partial nephrectomy did show renal cell carcinoma which appeared to have good margins based upon pathology, her small bowel obstruction is likely partial given the absence of a transition point seen on imaging, this may also be considered a post-op ileus. KUB / showed resolution of dilated loops of bowel, no signs of ileus continues to have bowel sounds, moving bowels, still liquid though advance diet to low fiber today ambulating a lot in the hallway K normal at 4.5 (2) Hypokalemia: K was low at 2.8 yesterday up to 4.5 with aggressive replacement hold PO replacement today repeat tomorrow continue to hold HCTZ for the time being (3) Metabolic acidosis with normal anion gap and bicarbonate losses: due to diarrhea, reports watery bowels, several times Na and Cl both high HCO3 normal for two days resolved with sodium bicarb IV (4) HTN (hypertension): BP all markedly elevated despite increasing Losartain from 25mg to 50mg continue Losartan at 50mg BID, pressures still running high will add Norvasc 5mg daily starting today as outpatient she is on Triamterene HCTZ but holding due to low K (5) Right elbow pain: responding well to Voltaren gel, continue this for a few days no complaints for two days Plan: advance diet, look for stools to become more formed prior to discharge hopeful to d/c home in next 1-2 days Subjective patient feeling well, eating low fiber diet, drinking fluids moving bowels, they are still liquid, she has concerns no abdominal pain, no vomiting discussed with patient that she only was drinking fluids up until today look for stools to bulk up with advancing diet K is up to 4.5 today, stop PO replacement other electrolytes stable, Cr is 0.79 discussed with general surgery, appreciate their assistance Review of Systems All systems reviewed & are unremarkable except as noted in HPI & below Gastrointestinal: + diarrhea/loose stools; no abdominal pain, no nausea, no vomiting and no constipation Physical Exam Vital Signs (Past 24 Hours): Last Vital Signs Temp 36.9 C 02/27/19 07:29 Pulse 87 02/27/19 07:29 Resp 18 02/27/19 07:29 BP 172/80 H 02/27/19 07:29 Pulse Ox 96 02/27/19 07:29 Constitutional: WD/WN, vitals as above Eyes: PERRL, conjunctivae normal, anicteric sclerae ENMT: external ear and nose normal, oropharynx normal Neck: trachea midline, no thyromegaly Respiratory: normal respiratory effort, lungs clear to auscultation Cardiovascular: RRR, no murmur, no edema Gastrointestinal (Abdomen): Inspection/Auscultation: abdomen normal to inspection and normal bowel sounds; abdomen not distended Percussion/Palpation: abdomen soft; abdomen nontender and no guarding Musculoskeletal: no cyanosis or clubbing, extremities motor strength 5/5 Skin: no rashes, warm and dry Neurologic: patellar DTR's 2+ bilat, sensation intact and PERRL, EOMI, accommodation nl, no face palsy, no dysarthria Psychiatric: A+Ox3, euthymic affect Lymphatic: no cervical or axillary lymphadenopathy Results & Data Laboratory Results Laboratory Results - last 24 hr 02/27/19 02/27/19 07:16 07:16 WBC 10.70 RBC 3.13 L Hgb 8.3 L Hct 26.3 L MCV 84.0 MCH 26.5 MCHC 31.6 L RDW Std Deviation 49.8 H RDW Coeff of Anahi 16.4 H Plt Count 416 H MPV 8.3 Immature Gran % (Auto) 1.2 Neut % (Auto) 69.7 Lymph % (Auto) 16.3 [place] % (Auto) 5.8 Eos % (Auto) 6.6 Baso % (Auto) 0.4 Immature Gran # (Auto) 0.13 H Neut # (Auto) 7.46 H Lymph # (Auto) 1.74 [place] # (Auto) 0.62 H Eos # (Auto) 0.71 H Baso # (Auto) 0.04 Hypersegmented Neuts 1+ Toxic Granulation 1+ Polychromasia 1+ Sodium 145 Potassium 4.5 D Chloride 114 H Carbon Dioxide 25 Anion Gap 6.0 BUN 7 Creatinine 0.79 Est Cr Clr Drug Dosing 49.8 Est GFR ( Amer) 83.7 Est GFR (Non-Af Amer) 72.2 BUN/Creatinine Ratio 8.6 L Glucose 97 Calcium 8.8 Medications Administered Current Inpatient Medications Acetaminophen (Tylenol) 1,000 mg PO Q8H PRN PRN Reason: Pain Stop: 03/24/19 22:16 Last Admin: 02/26/19 14:02 Dose: 1,000 mg Documented by: Amlodipine Besylate (Norvasc) 5 mg PO QAM [facility] Stop: 03/29/19 13:29 Diclofenac Sodium (Voltaren 1% Top) 1 appln EXT QID HENRY Stop: 03/26/19 20:59 Last Admin: 02/27/19 09:06 Dose: Not Given Documented by: Enoxaparin Sodium (Lovenox) 40 mg SQ DAILY HENRY Stop: 03/26/19 08:59 Last Admin: 02/27/19 09:06 Dose: 40 mg Documented by: Gabapentin (Neurontin) 200 mg PO BID [facility] Stop: 03/24/19 22:16 Last Admin: 02/27/19 09:06 Dose: 200 mg Documented by: Hydralazine HCl (Hydralazine Hcl) 10 mg IV Q6H PRN PRN Reason: bp Stop: 03/25/19 19:44 Last Admin: 02/26/19 11:07 Dose: 10 mg Documented by: Lorazepam (Ativan) 0.5 mg in 1 mls @ 1 mls/min IV Q8H PRN PRN Reason: Anxiety/Insomnia Stop: 03/24/19 22:16 Acetaminophen (Ofirmev) 1,000 mg in 100 mls @ 400 mls/hr IV Q8H PRN PRN Reason: Pain Stop: 03/25/19 02:54 Last Infusion: 02/26/19 06:09 Dose: Infused Documented by: Losartan Potassium (Cozaar) 50 mg PO BID [facility] Stop: 03/28/19 20:59 Last Admin: 02/27/19 09:05 Dose: 50 mg Documented by: Tramadol HCl (Ultram) 50 mg PO Q4H PRN PRN Reason: Pain Stop: 03/25/19 02:54 Zolpidem Tartrate (Ambien) 5 mg PO HS PRN PRN Reason: Sleep Stop: 03/26/19 00:10 Last Admin: 02/27/19 00:18 Dose: 5 mg Documented by: (1) Partial bowel obstruction Intestinal obstruction type: unspecified Qualified Code(s): K56.600 - Partial intestinal obstruction, unspecified as to cause
[2019-02-27] MEDS: AMLODIPINE BESYLATE 5 MG TAB PO SCH (14:34)
[2019-02-28 07:26] LABS: Hematocrit (blood only) 26.2 % (37-47); Hemoglobin 8.4 g/dL (12.0-16.0); Mean Corpuscular Hgb Conc 32.1 g/dL (32-36); Mean Corpuscular Volume 83.2 fL (80-100); Mean Platelet Volume 8.2 fL (7.4-10.4); Platelet Count 420 K/uL (130-400); RDW Coefficient of Variation 16.1 % (11.5-14.5); RDW Standard Deviation 48.8 fL (36.4-46.3); Red Blood Count 3.15 M/uL (4.2-5.4); White Blood Count 10.25 K/uL (4.8-10.8)
[2019-02-28 07:44] LABS: BUN Creatinine Ratio 11.1 (10-20); Calcium 9.7 mg/dl (8.5-10.1); Creatinine Clr Calc Pharmacy 53.2 ml/min; Est GFR (African American) 90.6; Est GFR (Non-African American) 78.1
[2019-02-28] MEDS: AMLODIPINE BESYLATE 5 MG TAB PO SCH (09:15)
[2019-02-28] MEDS: GABAPENTIN 100 MG CAP PO SCH ×2 (09:15→21:10)
[2019-02-28] MEDS: ENOXAPARIN INJ 40 MG/0.4 ML SYR SQ SCH (09:15)
[2019-02-28] MEDS: LOSARTAN POTASSIUM 50 MG TAB PO SCH ×2 (09:15→21:11)
[2019-02-28] MEDS: DICLOFENAC SOD 1% GEL 100 GM TUBE EXT SCH ×4 (09:16→21:09)
--- NOTE | 2019-02-28 14:32 | Hospitalist Progress Note ---
Date of Service February 28, 2019 Assessment & Plan (1) Partial bowel obstruction: partial SBO most recently had a right partial nephrectomy and cholecystectomy. The right partial nephrectomy did show renal cell carcinoma which appeared to have good margins based upon pathology, her small bowel obstruction is likely partial given the absence of a transition point seen on imaging, this may also be considered a post-op ileus. KUB 02/26 showed resolution of dilated loops of bowel, no signs of ileus continues to have bowel sounds, moving bowels, slightly more formed today surgery advanced to regular diet today ambulating a lot in the hallway K normal at 4.0 hope to d/c to home tomorrow (2) Hypokalemia: K was low at 2.8 on 02/26 stable at 4.[address] on daily potassium since we will resume HCTZ (3) Metabolic acidosis with normal anion gap and bicarbonate losses: due to diarrhea, reports watery bowels, several times Na and Cl both high HCO3 normal for two days resolved with sodium bicarb IV (4) HTN (hypertension): BP all markedly elevated despite increasing Losartain from 25mg to 50mg continue Losartan at 50mg BID, pressures still running high added Norvasc 5mg daily yesterday, still high as outpatient she is on Triamterene HCTZ, will resume today (5) Right elbow pain: responding well to Voltaren gel, continue this for a few days no complaints for two days Plan: advance diet, look for stools to become more formed prior to discharge hopeful to d/c home tomorrow Subjective patient eating better, moving bowels more formed this morning ambulating in the halls blood pressure still quite high despite titrating up on medications labs reviewed, Hb low at 8.4 Cr is 0.74 and K is 4.0 feels like she will be ready to go home tomorrow Review of Systems All systems reviewed & are unremarkable except as noted in HPI & below Gastrointestinal: + abdominal pain and + diarrhea/loose stools Physical Exam Vital Signs (Past 24 Hours): Last Vital Signs Temp 37.0 C 02/28/19 07:14 Pulse 79 02/28/19 07:14 Resp 16 02/28/19 07:14 BP 181/84 H 02/28/19 07:14 Pulse Ox 95 02/28/19 07:14 Constitutional: WD/WN, vitals as above Eyes: PERRL, conjunctivae normal, anicteric sclerae ENMT: external ear and nose normal, oropharynx normal Neck: trachea midline, no thyromegaly Respiratory: normal respiratory effort, lungs clear to auscultation Cardiovascular: RRR, no murmur, no edema Gastrointestinal (Abdomen): Inspection/Auscultation: abdomen normal to inspection and normal bowel sounds; abdomen not distended Percussion/Palpati on: abdomen soft; abdomen nontender and no guarding Musculoskeletal: no cyanosis or clubbing, extremities motor strength 5/5 Skin: no rashes, warm and dry Neurologic: patellar DTR's 2+ bilat, sensation intact and PERRL, EOMI, accommodation nl, no face palsy, no dysarthria Psychiatric: A+Ox3, euthymic affect Lymphatic: no cervical or axillary lymphadenopathy Results & Data Laboratory Results Laboratory Results - last 24 hr 02/28/19 02/28/19 06:58 06:58 WBC 10.25 RBC 3.15 L Hgb 8.4 L Hct 26.2 L MCV 83.2 MCH 26.7 MCHC 32.1 RDW Std Deviation 48.8 H RDW Coeff of Anahi 16.1 H Plt Count 420 H MPV 8.2 Sodium 144 Potassium 4.0 Chloride 112 H Carbon Dioxide 26 Anion Gap 6.0 BUN 8 Creatinine 0.74 Est Cr Clr Drug Dosing 53.2 Est GFR ( Amer) 90.6 Est GFR (Non-Af Amer) 78.1 BUN/Creatinine Ratio 11.1 Glucose 101 H Calcium 9.7 Medications Administered Current Inpatient Medications Acetaminophen (Tylenol) 1,000 mg PO Q8H PRN PRN Reason: Pain Stop: 03/24/19 22:16 Last Admin: 02/26/19 14:02 Dose: 1,000 mg Documented by: Amlodipine Besylate (Norvasc) 5 mg PO QAM [facility] Stop: 03/29/19 13:29 Last Admin: 02/28/19 09:15 Dose: 5 mg Documented by: Diclofenac Sodium (Voltaren 1% Top) 1 appln EXT QID [facility] Stop: 03/26/19 20:59 Last Admin: 02/28/19 12:26 Dose: Not Given Documented by: Enoxaparin Sodium (Lovenox) 40 mg SQ DAILY [facility] Stop: 03/26/19 08:59 Last Admin: 02/28/19 09:15 Dose: 40 mg Documented by: Gabapentin (Neurontin) 200 mg PO BID HENRY Stop: 03/24/19 22:16 Last Admin: 02/28/19 09:15 Dose: 200 mg Documented by: Hydralazine HCl (Hydralazine Hcl) 10 mg IV Q6H PRN PRN Reason: bp Stop: 03/25/19 19:44 Last Admin: 02/26/19 11:07 Dose: 10 mg Documented by: Lorazepam (Ativan) 0.5 mg in 1 mls @ 1 mls/min IV Q8H PRN PRN Reason: Anxiety/Insomnia Stop: 03/24/19 22:16 Acetaminophen (Ofirmev) 1,000 mg in 100 mls @ 400 mls/hr IV Q8H PRN PRN Reason: Pain Stop: 03/25/19 02:54 Last Infusion: 02/26/19 06:09 Dose: Infused Documented by: Losartan Potassium (Cozaar) 50 mg PO BID [facility] Stop: 03/28/19 20:59 Last Admin: 02/28/19 09:15 Dose: 50 mg Documented by: Tramadol HCl (Ultram) 50 mg PO Q4H PRN PRN Reason: Pain Stop: 03/25/19 02:54 Triamterene/HCTZ (Dyazide 37.5/25mg) 1 cap PO QAM [facility] Stop: 03/30/19 14:29 Zolpidem Tartrate (Ambien) 5 mg PO HS PRN PRN Reason: Sleep Stop: 03/26/19 00:10 Last Admin: 02/27/19 23:19 Dose: 5 mg Documented by: (1) Partial bowel obstruction Intestinal obstruction type: unspecified Qualified Code(s): K56.600 - Partial intestinal obstruction, unspecified as to cause
[2019-02-28] MEDS: ACETAMINOPHEN 500 MG TAB PO PRN (14:44)
[2019-02-28] MEDS: TRIAMTERENE/HCTZ 37.5/25MG CAP PO SCH (16:23)
[2019-02-28] MEDS: TRAMADOL HCL 50 MG TABLET PO PRN (19:39)
[2019-03-01] MEDS: ACETAMINOPHEN 500 MG TAB PO PRN (00:02)
[2019-03-01] MEDS: HydrALAZINE HCL 20 MG/ML VIAL IV PRN (00:03)
[2019-03-01] MEDS: ZOLPIDEM TARTRATE 5 MG TAB PO PRN (00:03)
--- NOTE | 2019-03-01 08:15 | Surgery Progress Note ---
Date of Service March 01, 2019 Assessment & Plan (1) Partial bowel obstruction: improved K+ replaced disposition per primary [facility] surgery covering the weekend, please call if there are any concerns Subjective tolerating diet, no BM overnight Physical Exam Vital Signs (Past 24 Hours): Last Vital Signs Temp 36.8 C 03/01/19 07:15 Pulse 78 03/01/19 07:15 Resp 16 03/01/19 07:15 BP 178/78 H 03/01/19 07:15 Pulse Ox 94 03/01/19 07:15 Gastrointestinal (Abdomen): Inspection/Auscultation: + abdomen distended (slightly) Percussion/Palpation: abdomen soft; abdomen nontender (1) Partial bowel obstruction Intestinal obstruction type: unspecified Qualified Code(s): K56.600 - Partial intestinal obstruction, unspecified as to cause
[2019-03-01 08:43] LABS: Hematocrit (blood only) 29.1 % (37-47); Hemoglobin 9.2 g/dL (12.0-16.0); Mean Corpuscular Hgb Conc 31.6 g/dL (32-36); Mean Corpuscular Volume 82.9 fL (80-100); Platelet Count 405 K/uL (130-400); RDW Coefficient of Variation 15.9 % (11.5-14.5); RDW Standard Deviation 48.2 fL (36.4-46.3); Red Blood Count 3.51 M/uL (4.2-5.4); White Blood Count 8.89 K/uL (4.8-10.8)
[2019-03-01] MEDS ORDERED: POTASSIUM CHLORIDE 20 MEQ TABCR PO SCH (09:00)
[2019-03-01 09:09] LABS: BUN Creatinine Ratio 13.1 (10-20); Calcium 9.7 mg/dl (8.5-10.1); Creatinine Clr Calc Pharmacy 47.4 ml/min; Est GFR (African American) 78.8; Potassium 3.8 mmol/L (3.5-5.1)
[2019-03-01] MEDS: TRIAMTERENE/HCTZ 37.5/25MG CAP PO SCH (09:22)
[2019-03-01] MEDS: GABAPENTIN 100 MG CAP PO SCH (09:22)
[2019-03-01] MEDS: AMLODIPINE BESYLATE 5 MG TAB PO SCH (09:22)
[2019-03-01] MEDS: LOSARTAN POTASSIUM 50 MG TAB PO SCH (09:22)
[2019-03-01] MEDS: ENOXAPARIN INJ 40 MG/0.4 ML SYR SQ SCH (09:22)
[2019-03-01] MEDS: DICLOFENAC SOD 1% GEL 100 GM TUBE EXT SCH (09:24)
[2019-03-01] MEDS: TRAMADOL HCL 50 MG TABLET PO PRN (12:00)
--- NOTE | 2019-03-01 12:40 | Discharge Summary ---
Date of Service March 01, 2019 Admission HPI Per Admitting Provider 78 y/o F Hx Colon CA - colectomy, HTN, HLD, DVTs - Coumadin. Recent admission 02/14 for excision of R renal mass and cholecystectomy. Pathology results returned + for clear cell renal CA. The pt presents with abdominal pain and diarrhea. She was discharged form the hospital following her surgeries AM 02/20. She developed watery diarrhea during her last 2 days in the hospital which has persisted. She describes some R sided abdominal pain which she states is different from her post-op pain which had largely resolved. She has not been able to tolerate adequate PO intake due to early satiety. She denies fevers, nausea or vomiting. She was sent for an abdominal CT which demonstrated fluid-filled dilated loops of small bowel suspicious for small bowel obstruction or ileus. Initial labs are notable for hypokalemia. 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 Chest/heart: Nontender, S1,2, RRR, no murmurs, no gallops Lungs: CTAB, no wheezing or crackles Abdomen: Distention and mild tenderness owing to recent surgery - multiple abdominal wall words Neuro: AAO x 3, speech is clear, no unilateral weakness or loss of sensation, coordination intact Musculoskeletal: No joint inflammation, muscle tenderness, FROM Skin: No acute rashes or ulcers Extremities: No clubbing, cyanosis, edema Principal Diagnosis Partial Small bowel obstruction vs post op ileus Discharge Exam Constitutional WD/WN, vitals as above Eyes PERRL, conjunctivae normal, anicteric sclerae ENMT external ear and nose normal, oropharynx normal Neck trachea midline, no thyromegaly Respiratory normal respiratory effort, lungs clear to auscultation Cardiovascular RRR, no murmur, no edema Gastrointestinal (Abdomen) Inspection/Auscultation: abdomen normal to inspection and normal bowel sounds; abdomen not distended Percussion/Palpation: abdomen soft; abdomen nontender and no guarding Musculoskeletal no cyanosis or clubbing, extremities motor strength 5/5 Skin no rashes, warm and dry Neurologic patellar DTR's 2+ bilat, sensation intact and PERRL, EOMI, accommodation nl, no face palsy, no dysarthria Psychiatric A+Ox3, euthymic affect Lymphatic no cervical or axillary lymphadenopathy Discharge Data Allergies Allergy/AdvReac Type Severity Reaction Status Date / Time cephalexin [From Keflex] Allergy Severe Hives Verified 02/22/19 14:58 adhesive Allergy Intermediate TAPE Verified 02/22/19 14:58 ALLERGY = "TEARS SKIN" clavulanic acid Allergy Mild vomiting/or Verified 02/22/19 14:58 [From Augmentin] rash bacitracin Allergy Unknown ALLERGY TO Verified 02/22/19 14:58 "TOPICAL ANTIBIOTICS" ?? Fish Containing Products Allergy Unknown UNKNOWN Verified 02/22/19 14:58 neomycin Allergy Unknown ALLERGY TO Verified 02/22/19 14:58 "TOPICAL ANTIBIOTICS" ?? polymyxin B Allergy Unknown ALLERGY TO Verified 02/22/19 14:58 "TOPICAL ANTIBIOTICS" ?? amoxicillin AdvReac Intermediate Vomiting Verified 02/22/19 14:58 nitrofurantoin AdvReac Intermediate FLU-LIKE Verified 02/22/19 14:58 SYMPTOMS Consultations 02/22/19 19:58 ED Decision to Admit Stat 02/22/19 22:17 Consult General Surgery Routine Ordered Studies 02/22/19 17:13 CT abd pelvis wo con Stat Hospital Course (1) Partial bowel obstruction: partial SBO most recently had a right partial nephrectomy and cholecystectomy. The right partial nephrectomy did show renal cell carcinoma which appeared to have good margins based upon pathology, her small bowel obstruction is likely partial given the absence of a transition point seen on imaging, this may also be considered a post-op ileus. KUB 4/2 showed resolution of dilated loops of bowel, no signs of ileus continues to have bowel sounds, moving bowels, slightly more formed on day of discharge surgery advanced to regular diet on 02/28, tolerated well had some diarrhea after fatty meal, discussed that fatty foods will lead to loose stools after cholecystectomy ambulating a lot in the hallway K normal d/c to home with follow up with Dr. Sanchez and Dr. Dutta low fat diet, but otherwise can advance diet as tolerated (2) Hypokalemia: K was low at 2.8 on 02/26 K normal on day of discharge at 3.7 on discharge, will start on daily KCl supplement (3) Metabolic acidosis with normal anion gap and bicarbonate losses: due to diarrhea, reports watery bowels, several times Na and Cl both high HCO3 normal for four days resolved with sodium bicarb IV on 02/26 (4) HTN (hypertension): BP all markedly elevated despite increasing Losartain from 25mg to 50mg resumed Triamterene/HCTZ on discharge she will be on Losartan 50mg, Triamterene HCTZ encourage close follow up with Dr. 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 Total Time Total Time Spent Total Time Spent (In Minutes): 40 minutes Total Time Includes: Examination of the Patient, Discharge Planning, Medication Reconciliation and Communication With Other Providers (general surgery) Discharge Plan Discharge Items Patient Disposition: Home - Self-Care Reason For Visit: SBO Discharge Diagnosis: Small bowel obstruction Hypertension Hypokalemia Condition: Good Discharge Goals: Diagnostic testing, Improve disease control and Improve function Activity: Resume your previous activity Lifting: No more than 10 pounds Bathing: Keep incision dry Exercise/Sports: Gradually increase as tolerated Non-emergency contact: Primary Care Provider and Surgeon Call non-emergency contact if: you have any medication questions, your symptoms worsen, your pain is not controlled, your pain is worsening and you have a fever Follow-up/Referrals: Pro,Anthony Russo MD [Primary Care Provider] - 03/04/19 10:00 am (Follow up appointment scheduled with Dr. Yeh's PA, Margarita Walker, on MondayMarch 04 at 10am. If you have any questions or need to reschedule, please call the office at [phone].) Diet: Heart Healthy and Low Fat Addtl Provider Instructions: Medications: - LOSARTAN: dose increased to 50mg daily from 25mg daily due to high blood pressures - COUMADIN: resume 3mg daily starting today, see below - LOVENOX: take 60mg daily until INR therapeutic - POTASSIUM: take 20mEq daily Small bowel obstruction vs post operative ileus resolved, tolerating diet, moving bowels recommend heart healthy, low fat diet as we discussed, fatty meals can lead to more diarrhea now that gall bladder removed follow up with Dr. Sanchez as scheduled s/p resection of renal cell cancer follow up with Dr. Dutta as previously scheduled Low potassium: now on scheduled potassium, 20mEq daily Hypertension: difficult to control in the hospital better now that back on Triamterene/HCTZ, this was held for hypokalemia Losartan dose was increased from 25mg to 50mg daily follow up with Dr. Yeh for blood pressure check H/o DVT, previously on Coumadin as we discussed, resume Lovenox 60mg daily, resume Coumadin today follow INR and stop Lovenox once INR is > 2.0 FOLLOW UP - Dr. Yeh on 03/04 - Dr. Sanchez and Dr. Dutta as scheduled Prescriptions: New potassium chloride [Klor-Con M20] 20 mEq Tablet,Er Particles/Crystals 20 meq PO QAM 30 Days Qty: 30 RF: 1 warfarin [Coumadin] 3 mg tablet 3 mg PO DAILY Qty: 30 RF: 0 Continued cyanocobalamin (vitamin B-12) [Vitamin B-12] 500 mcg Tablet 500 mcg PO QAM RF: 0 folic acid 1 mg tablet 2 tab PO BID RF: 0 fenofibrate nanocrystallized 145 mg tablet 0.5 tab PO HS RF: 0 cholecalciferol (vitamin D3) [Vitamin D3] 2,000 unit Tablet 2,000 unit PO QAM RF: 0 Caltrate 600 + D 600 mg (1,500 mg)-800 unit Tablet,Chewable 1 tab PO QPM RF: 0 omeprazole 40 mg capsule,delayed release(DR/EC) 40 mg PO QAM RF: 0 triamterene-hydrochlorothiazid 37.5-25 mg capsule 1 cap PO QAM RF: 0 gabapentin 100 mg capsule 200 mg PO BID RF: 0 zolpidem 10 mg tablet 5 - 10 mg PO HS PRN (Reason: Sleep) RF: 0 diphenhydramine HCl [Benadryl Allergy] 25 mg tablet 25 mg PO Q8H PRN (Reason: itching) Qty: 30 RF: 0 acetaminophen [Tylenol Extra Strength] 500 mg Tablet 1,000 mg PO Q6H PRN (Reason: Pain) RF: 0 oxycodone 5 mg tablet 5 mg PO Q6H PRN (Reason: pain) Qty: 14 RF: 0 docusate sodium [Colace] 100 mg capsule 100 mg PO BID PRN (Reason: constipation) Qty: 60 RF: 0 enoxaparin 60 mg/0.6 mL Syringe 60 mg SUBCUT DAILY RF: 0 Changed losartan 25 mg tablet 50 mg PO QAM 30 Days Qty: 60 RF: 1 Stand-Alone Forms: [facility] Discharge Orders: Discharge Order (Routine); Ordered 03/01/19 Ordered By: Howie Mireles Admission Data Admit Date/Time: 02/22/19 20:59 Attending Provider: Howie Mireles Admit Provider: Lance Chen Primary Care Provider: Anthony Yeh Other Providers: Lance Chen ; Bryson Sanchez ; Home,Nursing Agency Service: Medical Other Interventions: Discharge Summary Assessment (RN) Last Done: 03/01/19 13:10 DC Date/Time DO NOT enter until pt leaves facility: 03/01/19 14:20
== END 2019-03-01 14:20 | disposition home or self-care (01) | DRG 394 ==
LOC: ED 13:05 → 3W 20:59 → SUATTDRO 20:59 → 3W 22:06

== ENCOUNTER 2025-09-08 10:03 | Observation (INO) ==
--- NOTE | 2025-09-08 10:46 | Emergency Department Note ---
Impression & Plan Weakness, Hypokalemia, Hypomagnesemia, Diarrhea, AILYN (acute kidney injury) ED Provider Note NAME: MERCY ROBERTSON AGE: 85 SEX: F : 1940 ARRIVES VIA: Walk-In INFORMANT: Patient, ED PROVIDER(S): Anthony Ulrich DO CHIEF COMPLAINT: Diarrhea HPI: The patient is an 85-year-old female who presented to the emergency department for an evaluation of diarrhea. The patient started having diarrhea symptoms over the course the weekend. The patient has been having abdominal cramping. The patient denies having any rectal bleeding. She was started on Cipro recently for a urinary tract infection. She is concerned that this is why she has the diarrhea. The patient called her family doctor today and was referred to the emergency department for further evaluation. ROS: See above HPI for pertinent positives & negatives. A total of 10 systems reviewed and were otherwise negative. PAST MEDICAL HISTORY: See Below PAST SURGICAL HISTORY: See Below FAMILY HISTORY: See Below SOCIAL HISTORY: See Below HOME MEDICATIONS: See Below ALLERGIES: See Below VITALS: See Below PHYSICAL EXAMINATION: GENERAL: Patient is awake alert in no acute distress patient is resting comfortably and showing no signs of anxiety EYES: The conjunctivae are clear. The pupils are round and reactive. EARS, NOSE, MOUTH AND THROAT: The nose is without any evidence of any deformity. Mucous membranes are dry NECK: The neck is nontender and supple. RESPIRATORY: Normal respiratory effort is noted there is no evidence of wheezing rhonchi or rales CARDIOVASCULAR: Regular rate and rhythm noted there no murmurs rubs or gallops normal S1 normal S2. GASTROINTESTINAL: The abdomen is soft. Abdomen is nontender. MUSCULOSKELETAL/EXTREMITIES: There is no evidence of gross deformity full range of motion is noted in the hips and shoulders. SKIN: There is no obvious evidence of any rash. There are no petechiae, pallor or cyanosis noted. NEUROLOGIC: Patient is awake alert and oriented x3 MEDICAL DECISION MAKING: The patient is an 85-year-old female who presented to the emergency department for an evaluation of diarrhea. She has had diarrhea over the last 2 days. She is now feeling very dehydrated and weak. The patient was treated with IV fluids as well as IV magnesium and potassium replacement in the emergency department. She was reevaluated multiple times. Given her findings as well as her overall symptoms the patient was not comfortably and discharged home. For this reason the [facility] hospitalist group was notified about the patient. They will evaluate the patient in the emergency department for further management and disposition. Stool studies were still pending. Triage Nursing notes reviewed. Prior medical records reviewed Vital Signs: reviewed and remarkable for no significant abnormalities Differential diagnosis: Etiologies such as appendicitis, diverticulitis, obstruction, inflammatory bowel disease, renal colic, PUD, biliary pathology, pancreatitis, mesenteric ischemia, aortic pathology, infections, genitourinary, UTI, perforated viscus, as well as others were entertained. ER treatment provided: See below Diagnostics interpreted by me: ECG: EKG was obtained in the emergency department. My interpretation is normal sinus rhythm at 80 bpm. There is no ectopy. There is no acute ST segment abnormalities noted. LVH was suggested by voltage criteria. This was compared to a tracing from August 19, 2024. No changes were noted. Cardiac Monitoring: An order was placed for continuous cardiac monitoring. The monitor shows a rate of 72 bpm with sinus rhythm. Laboratory studies: As stated above and show below. Imaging studies: See below. Radiographic imaging was reviewed by myself Consultation(s): Dr. Mckoy was notified about the patient. They will evaluate the patient in the emergency department. Past Med/Surg History Problem List (Updated 09/08/25 @ 12:49 by Anthony Ulrich DO) AILYN (acute kidney injury) (Acute) Diarrhea (Acute) Hypomagnesemia (Acute) Hypokalemia (Acute) Weakness (Acute) Genitourinary syndrome of menopause Memory deficits Post concussion syndrome Edema of left lower leg Multiple drug allergies Current use of proton pump inhibitor Aortic stenosis Insomnia Pulmonary nodule Postmenopausal Rotator cuff tear, right Fall Chronic UTI (urinary tract infection) Scoliosis (Chronic) Leg length discrepancy (Chronic) 1.1 cm short on the left Lumbar postlaminectomy syndrome (Chronic) Stone in kidney Prediabetes Anemia, mild CKD (chronic kidney disease) 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 +Chemo. Trochanteric bursitis of right hip (Chronic) Renal cell cancer (Chronic) Status post partial nephrectomy on the right Spinal stenosis (Chronic) Solitary pulmonary nodule (Chronic) Sensorineural hearing loss (SNHL) of both ears (Chronic) Peripheral neuropathy (Chronic) Osteoporosis (Chronic) Nontoxic multinodular goiter (Chronic) Lumbosacral radiculopathy (Chronic) Hyperparathyroidism (Chronic) Homocystinemia (Chronic) Dyslipidemia (Chronic) Chronic reflux esophagitis (Chronic) Anemia (Chronic) HTN (hypertension) (Chronic) Medical History Exposure to COVID-19 virus Change in bowel habits Diarrhea Acute kidney injury Sacral fracture, closed S4 diagnosed 09/20/2019 Lumbago Type 2 diabetes mellitus diet controlled Cyst of kidney, acquired 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 Mild aortic calcification without hemodynamically significant valvular aortic stenosis. Hypertension Hyperlipidemia GERD (gastroesophageal reflux disease) Osteoarthritis Colon cancer Surgical History H/O hemicolectomy Hx of cystoscopy with urethral stent placement History of parotid gland excision LEFT History of open reduction and internal fixation (ORIF) procedure RIGHT LEG History of laminectomy LUMBAR Fusion of spine LUMBAR L3-L5, AND CERVICAL 3-4 WITH FULL ROM History of colonoscopy History of hysterectomy ARMANDO WITH OOPHRECTOMY History of section X2 History of parathyroidectomy X2 Family History Father , age 60 of an [place] Myocardial infarction Mother , age 85 of a stroke. 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 Beliefs That Will Affect Care: None marital status: Single Current Living Situation: Alone current occupational status: retired 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 Feels Safe at Home: Yes Childhood Exposure to Second-Hand Smoke: Yes Dental Care, Regularly: No Physical Activity Frequency: Does not Exercise Seatbelt Use: always Sunscreen Use: No Assistive Devices: None Allergies Allergies Allergy/AdvReac Type Severity Reaction Status Date / Time Fish Containing Products Allergy Severe Anaphylaxis Verified 09/03/25 14:04 proparacaine [From Ophthetic] Allergy Severe facial Verified 09/03/25 14:04 swelling on side of face with eye drop SHIRLEY Inhibitors Allergy Intermediate coughing Verified 09/03/25 14:04 adhesive Allergy Intermediate TAPE Verified 09/03/25 14:04 ALLERGY = "TEARS SKIN" bacitracin Allergy Intermediate inflammatio Verified 09/03/25 14:04 n clavulanic acid Allergy Intermediate vomiting/or Verified 09/05/25 10:51 [From Augmentin] rash levofloxacin Allergy Intermediate pain Verified 09/05/25 10:51 neomycin Allergy Intermediate inflammatio Verified 09/03/25 14:04 n polymyxin B Allergy Intermediate inflammatio Verified 09/03/25 14:04 n Penicillins Allergy Unknown Unknown Verified 09/03/25 14:04 Sulfa (Sulfonamide Allergy Unknown Unknown Verified 09/05/25 10:51 Antibiotics) amoxicillin AdvReac Intermediate Vomiting Verified 09/05/25 10:51 nitrofurantoin AdvReac Intermediate FLU-LIKE Verified 09/05/25 10:51 SYMPTOMS ciprofloxacin [From Cipro] AdvReac Nausea Verified 09/05/25 10:51 Home Meds Home Medications Medication Instructions Recorded Confirmed cyanocobalamin (vitamin B-12) 500 500 mcg PO QAM 08/15/18 09/08/25 mcg tablet (Vitamin B-12) acetaminophen 500 mg tablet 1,000 mg PO Q6H PRN Pain 02/14/19 09/08/25 (Tylenol Extra Strength) ferrous sulfate 325 mg (65 mg 325 mg PO 2XWK 05/12/21 09/08/25 iron) tablet cholecalciferol (vitamin D3) 50 50 mcg PO DAILY 10/11/22 09/08/25 mcg (2,000 unit) capsule (Vitamin D3) gabapentin 100 mg capsule 0 mg PO DAILY 07/16/25 09/08/25 triamterene 37.5 0 cap PO QAM 09/08/25 09/08/25 mg-hydrochlorothiazide 25 mg capsule warfarin 3 mg tablet 0 mg PO UD 09/08/25 09/08/25 warfarin 4 mg tablet 2 - 4 mg PO UD 09/08/25 09/08/25 Previous Rx's Medication Instructions Recorded losartan 50 mg tablet 50 mg PO QAM #135 tabs 08/29/24 folic acid 1 mg tablet 2 mg (2 x 1 mg) PO BID #360 tabs 12/27/24 omeprazole 20 mg capsule,delayed 20 mg PO QAM #90 caps 12/27/24 release fenofibrate nanocrystallized 145 72.5 mg (1/2 x 145 mg) PO HS #90 04/04/25 mg tablet tabs rosuvastatin 5 mg tablet 5 mg PO DAILY #90 tabs 08/21/25 tramadol 50 mg tablet 100 mg (2 x 50 mg) PO BID PRN pain 09/02/25 #180 tabs zolpidem 10 mg tablet 10 mg PO HS PRN Sleep #30 tabs 09/02/25 Results & Data (ED) Vital Signs Vital Signs - 24 hr 09/08/25 10:05 09/08/25 10:56 09/08/25 11:15 Temperature 35.8 C L Temperature Source Temporal Artery Scan Pulse Rate 114 H 84 Pulse Rate [Apical] 69 Pulse Rhythm Pulse Rhythm [Apical] Regular Pulse Strength [Apical] Normal Respiratory Rate 18 16 Respiratory Effort / Characteristics Non-Labored Spontaneous Non-Labored Spontaneous Respiratory Depth Normal Normal Respiratory Pattern Regular Regular Blood Pressure 122/74 Blood Pressure [Right Arm] 128/77 Blood Pressure Mean 90 Blood Pressure Mean [Right Arm] 94 Pulse Oximetry 96 97 Oxygen Delivery Method Room Air Room Air Sepsis Recent Fever Within 48 Hours No Sepsis New/Unexplained Change in Mental Status No Sepsis Action Taken by Nursing No Action Required 09/08/25 11:15 09/08/25 12:00 09/08/25 13:00 Temperature Temperature Source Pulse Rate 69 Pulse Rate [Apical] 71 65 Pulse Rhythm Regular Pulse Rhythm [Apical] Regular Regular Pulse Strength [Apical] Normal Normal Respiratory Rate 16 18 16 Respiratory Effort / Characteristics Non-Labored Spontaneous Non-Labored Spontaneous Respiratory Depth Normal Normal Respiratory Pattern Regular Regular Blood Pressure Blood Pressure [Right Arm] 166/82 H 134/65 Blood Pressure Mean Blood Pressure Mean [Right Arm] 110 88 Pulse Oximetry 97 98 97 Oxygen Delivery Method Room Air Room Air Room Air Sepsis Recent Fever Within 48 Hours Sepsis New/Unexplained Change in Mental Status Sepsis Action Taken by Nursing 09/08/25 15:00 Temperature Temperature Source Pulse Rate Pulse Rate [Apical] 72 Pulse Rhythm Pulse Rhythm [Apical] Regular Pulse Strength [Apical] Respiratory Rate 17 Respiratory Effort / Characteristics Non-Labored Spontaneous Respiratory Depth Normal Respiratory Pattern Regular Blood Pressure Blood Pressure [Right Arm] 121/59 L Blood Pressure Mean Blood Pressure Mean [Right Arm] 79 Pulse Oximetry 96 Oxygen Delivery Method Room Air Sepsis Recent Fever Within 48 Hours Sepsis New/Unexplained Change in Mental Status Sepsis Action Taken by Correction Medications Current Medication List: was personally reviewed by me Laboratory Data Attestation: I reviewed the patient's lab results. 09/08/25 10:50 09/08/25 10:50 Lab Results 09/08/25 09/08/25 Range/Units 10:50 11:54 WBC 6.92 (4.8-10.8) K/ul RBC 4.16 L (4.20-5.40) M/uL Hgb 11.4 L (12.0-16.0) g/dl Hct 35.2 L (37.0-47.0) % MCV 84.6 (80.0-100.0) fL MCH 27.4 (25.0-34.0) pg MCHC 32.4 (32.0-36.0) g/dL RDW Std Deviation 46.1 (36.4-46.3) fL RDW Coeff of Anahi 14.9 H (11.5-14.5) % Plt Count 324 (130-400) K/uL MPV 8.7 L (9.4-12.4) fL Immature Gran % (Auto) 0.7 % Neut % (Auto) 66.3 % Lymph % (Auto) 22.8 % [place] % (Auto) 6.6 % Eos % (Auto) 2.9 % Baso % (Auto) 0.7 % Neut # (Auto) 4.58 (1.40-6.50) K/uL Lymph # (Auto) 1.58 (1.20-3.40) K/uL [place] # (Auto) 0.46 (0.11-0.59) K/uL Eos # (Auto) 0.20 (0.00-0.50) K/uL Baso # (Auto) 0.05 (0.00-0.20) K/uL Immature Gran # (Auto) 0.05 (0.01-0.20) K/uL PT 17.2 H (9.0-12.0) Seconds INR 1.7 H (0.9-1.1) APTT 31 (21-31) Seconds PTT Ratio 1.1 Sodium 137 (136-145) mmol/L Potassium 3.3 L (3.5-5.1) mmol/L Chloride 104 (98-107) mmol/L Carbon Dioxide 21 (21-32) mmol/L Anion Gap 12 H (3-11) BUN 44 H (6-23) mg/dl Creatinine 1.84 H (0.6-1.2) mg/dl Est Cr Clr Drug Dosing 17.2 ml/min eGFR 26.72 BUN/Creatinine Ratio 23.9 H (10-20) Glucose 154 H (70-99(Fasting)) mg/dl Calcium 10.6 H (8.6-10.3) mg/dl Magnesium 1.5 L (1.7-2.4) mg/dl Total Bilirubin 0.5 (0.2-1.0) mg/dl AST 18 (13-39) U/L ALT 13 (7-52) U/L Alkaline Phosphatase 36 (34-104) U/L Troponin I High Sens 16.0 H (0-14) pg/ml Total Protein 7.1 (6.0-8.3) gm/dl Albumin 4.2 (3.4-5.0) gm/dl Globulin 2.9 (2.5-4.0) gm/dl Albumin/Globulin Ratio 1.4 (0.9-2) Lipase 31 (11-82) U/L Urine Color Yellow Urine Appearance Clear (Clear) Urine pH 5.5 (4.5-7.5) Ur Specific [place] 1.015 (1.000-1.030) Urine Protein Negative (Negative) Urine Glucose (UA) Negative (Negative) Urine Ketones Negative (Negative) Urine Blood Negative (Negative) Urine Nitrite Negative (Negative) Urine Bilirubin Negative (Negative) Urine Urobilinogen Negative (Negative) Ur Leukocyte Esterase Trace H (Negative) Urine WBC (Auto) 0-5 (0-5) /hpf Urine RBC (Auto) 0-2 (0-2) /hpf U Hyaline Cast (Auto) 3-5 H (0-2) /lpf U Epithel Cells (Auto) 3-5 H (0-2) /hpf Urine Bacteria (Auto) None Seen (None Seen) Urine Comment Administered Medications Discontinued Medications Sodium Chloride (Nss) 500 mls @ 999 mls/hr IV .Q31M STA Stop: 09/08/25 10:59 Last Infusion: 09/08/25 11:26 Dose: Infused Documented By: Admin: 09/08/25 10:51 Dose: 999 mls/hr Documented By: ROMIE Sodium Chloride (Nss) 500 mls @ 999 mls/hr IV .Q31M ONE Stop: 09/08/25 12:08 Last Infusion: 09/08/25 14:23 Dose: Infused Documented By: Admin: 09/08/25 13:09 Dose: 999 mls/hr Documented By: ARMIN Magnesium Sulfate/Dextrose (Magnesium Sulfate / D5w) 1 gm in 100 mls @ 100 mls/hr IV Q1H HENRY Stop: 09/08/25 14:46 Last Infusion: 09/08/25 15:29 Dose: Infused Documented By: Admin: 09/08/25 14:26 Dose: 100 mls/hr Documented By: Infusion: 09/08/25 14:12 Dose: Infused Documented By: Admin: 09/08/25 13:12 Dose: 100 mls/hr Documented By: ARMIN Potassium Chloride (Potassium Chloride 10 Meq Tabcr) 10 meq PO NOW STA Stop: 09/08/25 12:49 Last Admin: 09/08/25 13:16 Dose: 10 meq Documented By: ARMIN Imaging Data Attestation: I personally reviewed and interpreted this imaging study as follows: My Impression: 1 view chest x-ray was obtained in the emergency department. My interpretation is no free air or definite infiltrate, final report below. Radiologist's Impression: Chest X-Ray 09/08/25 10:30 XR chest 1V portable CLINICAL HISTORY: weakness COMPARISON STUDY: 08/19/2024 FINDINGS: Stable mild cardiomegaly without pulmonary vascular congestion. No consolidation or pleural effusion. No pneumothorax. IMPRESSION: No acute findings. ACT 112: Negative or not required by law. Electronically signed by: Luis M Torres M.D. 09/08/2025 11:02 AM KUB X-Ray 09/08/25 10:30 KUB HISTORY: weakness COMPARISON STUDY: 02/26/2019 FINDINGS: Stable lower lumbar fusion. There are multiple surgical clips at the right upper quadrant. There is mild retained stool. No bowel obstruction seen. No gross free air. IMPRESSION: No acute findings. ACT 112: Negative or not required by law. The above report was generated using voice recognition software. It may contain grammatical, syntax or spelling errors. Electronically signed by: Luis M Torres M.D. 09/08/2025 11:02 AM Discharge Plan Visit Data Chief Complaint: Diarrhea Stated Complaint: SEVERE DIARRHEA X4 DAYS, DEHYDRATED, HAVEN'T EATEN ED Provider: Anthony Ulrich ED Midlevel Provider: Tamra Monzon Discharge Problem: Weakness, Hypokalemia, Hypomagnesemia, Diarrhea, AILYN (acute kidney injury) Patient Disposition: Being Evaluated by Hospitalist Condition: Fair Forms Stand Alone Forms: [facility] [place] [employer] Prescriptions Prescriptions: No Action omeprazole 20 mg capsule,delayed release(DR/EC) 20 mg PO QAM Qty: 90 3RF Rx Instructions: TAKE 1 CAPSULE BY MOUTH DAILY folic acid 1 mg tablet 2 mg PO BID Qty: 360 3RF fenofibrate nanocrystallized 145 mg tablet 72.5 mg PO HS Qty: 90 3RF Rx Instructions: TAKE 1/2 TABLET AT BEDTIME rosuvastatin 5 mg tablet 5 mg PO DAILY Qty: 90 3RF ferrous sulfate 325 mg (65 mg iron) tablet 325 mg PO 2XWK Patient Comments: 09/08- otc unable to verify Rx Instructions: TAKES ON MONDAY & WEDNESDAYS. losartan 50 mg tablet 50 mg PO QAM Qty: 135 3RF gabapentin 100 mg capsule 0 mg PO DAILY Patient Comments: 09/08- last filled 90 day supply #360 zolpidem 10 mg tablet 10 mg PO HS PRN (Reason: Sleep) Qty: 30 0RF tramadol 50 mg tablet 100 mg PO BID PRN (Reason: pain) Qty: 180 0RF Rx Instructions: not to take with Zolpidem Supervising physician Anthony Yeh MD PENDING SALE TO [facility] [id number] cyanocobalamin (vitamin B-12) [Vitamin B-12] 500 mcg Tablet 500 mcg PO QAM Patient Comments: 09/08- otc unable to verify acetaminophen [Tylenol Extra Strength] 500 mg Tablet 1,000 mg PO Q6H PRN (Reason: Pain) Patient Comments: 09/08- otc unable to verify cholecalciferol (vitamin D3) [Vitamin D3] 50 mcg (2,000 unit) Capsule 50 mcg PO DAILY Patient Comments: 09/08- otc unable to verify triamterene-hydrochlorothiazid 37.5-25 mg capsule 0 cap PO QAM Patient Comments: 09/08- last fille 05/12 90 day supply #90 warfarin 4 mg tablet 2 - 4 mg PO UD Protocol: Dose Management Condition: Monday Dose/Route: 2 mg Instruction: 0.5 x 4 mg tablets Condition: Monday Dose/Route: 2 mg Instruction: 0.5 x 4 mg tablets Condition: Monday Dose/Route: 2 mg Instruction: 0.5 x 4 mg tablets Condition: Monday Dose/Route: 2 mg Instruction: 0.5 x 4 mg tablets Condition: Dose/Route: 2 mg Instruction: 0.5 x 4 mg tablets Condition: Monday Dose/Route: 2 mg Instruction: 0.5 x 4 mg tablets Condition: Monday Dose/Route: 2 mg Instruction: 0.5 x 4 mg tablets Protocol Text: Adjustment Start Date: Monday08/15/25 INR Value: 1.9 INR Date: 08/15/25 Additional Instructions: Patient advised to take an extra 1mg today 08/15/25 then resume normal dose and recheck in one week Rx Instructions: TAKES 2 MG ON MONDAY AND WEDNESDAYS, THEN 4 MG ALL OTHER DAYS. See protocol as directed PO daily; warfarin 3 mg tablet 0 mg PO UD Protocol: Dose Management Condition: Monday Dose/Route: 2 mg Instruction: 0.5 x 4 mg tablets Condition: Monday Dose/Route: 2 mg Instruction: 0.5 x 4 mg tablets Condition: Monday Dose/Route: 2 mg Instruction: 0.5 x 4 mg tablets Condition: Monday Dose/Route: 2 mg Instruction: 0.5 x 4 mg tablets Condition: Dose/Route: 2 mg Instruction: 0.5 x 4 mg tablets Condition: Monday Dose/Route: 2 mg Instruction: 0.5 x 4 mg tablets Condition: Monday Dose/Route: 2 mg Instruction: 0.5 x 4 mg tablets Protocol Text: Adjustment Start Date: Monday08/15/25 INR Value: 1.9 INR Date: 08/15/25 Additional Instructions: Patient advised to take an extra 1mg today 08/15/25 then resume normal dose and recheck in one week Patient Comments: 09/08- no fill history unable to verify Rx Instructions: 3 mg orally twice weekly Referrals Referrals: Anthony Yeh MD [Primary Care Provider] -
[2025-09-08] MEDS: SODIUM CHLORIDE 0.9% 500 ML IV STA (10:51)
--- NOTE | 2025-09-08 11:03 | XRay Report ---
KUB HISTORY: weakness COMPARISON STUDY: 02/26/2019 FINDINGS: Stable lower lumbar fusion. There are multiple surgical clips at the right upper quadrant. There is mild retained stool. No bowel obstruction seen. No gross free air. IMPRESSION: No acute findings. ACT 112: Negative or not required by law. The above report was generated using voice recognition software. It may contain grammatical, syntax o r spelling errors. Electronically signed by: Luis M Torres M.D. 09/08/2025 11:02 AM
--- NOTE | 2025-09-08 11:03 | XRay Report ---
XR chest 1V portable CLINICAL HISTORY: weakness COMPARISON STUDY: 08/19/2024 FINDINGS: Stable mild cardiomegaly without pulmonary vascular congestion. No consolidation or pleural effusion. No pneumothorax. IMPRESSION: No acute findings. ACT 112: Negative or not required by law. Electronically signed by: Luis M Torres M.D. 09/08/2025 11:02 AM
[2025-09-08 11:13] LABS: Hematocrit (blood only) 35.2 % (37.0-47.0); Hemoglobin 11.4 g/dl (12.0-16.0); Immature Granulocytes # (auto) 0.05 K/uL (0.01-0.20); Immature Granulocytes % (auto) 0.7 %; Mean Corpuscular Hemoglobin 27.4 pg (25.0-34.0); Mean Corpuscular Volume 84.6 fL (80.0-100.0); Platelet Count 324 K/uL (130-400); RDW Standard Deviation 46.1 fL (36.4-46.3); Red Blood Count 4.16 M/uL (4.20-5.40); White Blood Count 6.92 K/ul (4.8-10.8)
[2025-09-08 11:29] LABS: Alanine Aminotransferase 13.0 U/L (7-52); Albumin Globulin Ratio 1.4 (0.9-2); Albumin Level 4.2 gm/dl (3.4-5.0); Alkaline Phosphatase 36.0 U/L (34-104); Anion Gap 12.0 (3-11); Bilirubin,Total 0.5 mg/dl (0.2-1.0); Blood Urea Nitrogen 44.0 mg/dl (6-23); Calcium 10.6 mg/dl (8.6-10.3); Carbon Dioxide 21.0 mmol/L (21-32); Chloride 104.0 mmol/L (98-107); Creatinine Clr Calc Pharmacy 17.2 ml/min; Globulin 2.9 gm/dl (2.5-4.0); Glucose 154.0 mg/dl (70-99(Fasting)); Lipase 31.0 U/L (11-82); Magnesium 1.5 mg/dl (1.7-2.4); Potassium 3.3 mmol/L (3.5-5.1); Sodium 137.0 mmol/L (136-145); Total Protein 7.1 gm/dl (6.0-8.3)
[2025-09-08 12:08] LABS: Appearance Urine Clear (Clear); Bacteria Urine Automated None Seen (None Seen); Glucose Urine UA Negative (Negative); RBC Urine Automated 0-2 /hpf (0-2); WBC Urine Automated 0-5 /hpf (0-5)
[2025-09-08 12:18] LABS: INR 1.7 (0.9-1.1); Partial Thromboplastin Time 31 Seconds (21-31); Prothrombin Time 17.2 Seconds (9.0-12.0)
[2025-09-08] MEDS: SODIUM CHLORIDE 0.9% 500 ML IV ONE (13:09)
[2025-09-08] MEDS: MAGNESIUM SULFATE / D5W 1 GM/100 ML BAG IV SCH ×2 (13:12→19:15)
[2025-09-08] MEDS: POTASSIUM CHLORIDE 10 MEQ TABCR PO STA (13:16)
--- NOTE | 2025-09-08 15:27 | History & Physical Report ---
Date of Service September 08, 2025 Assessment & Plan (1) Diarrhea: (2) Hypomagnesemia: (3) Hypokalemia: Plan #Diarrhea/Hypovolemia/Abdominal Pain-Cramping - pt w/ 4-day Hx of non-bloody diarrhea after starting ciprofloxacin for UTI - Stool Cx (PCR Burton), CDiff Toxin B Gene ordered - KUB: 1) There is mild retained stool. No bowel obstruction seen. No gross free air. - BUN, 44; Cr, 1.84; BUN/Cr, 23.9 - LR, 125 mL/hr, ordered, 2 L total #SIRS Criteria - T, 35.8 deg C; HR, 114 upon admission - re-take of T was 97.6 deg C; HR likely elevated in part from dehydration, hypovolemia - Blood Cx ordered, pending #Electrolyte abnormalities/Hypokalemia/Hypomagnesemia - K, 3.3; Mg, 1.5 --> likely secondary to decreased oral intake - KCl, 40 mEq, ordered; MgSO4, 30 mEq ordered - hold triamterene-HCTZ - AM labs: BMP, Mg #Hypercalcemia/Hyperparathyroidism - Ca, 10.6 - Hx of hyperparathyroidism (last PTH, 140.8, on 09/02/25) - IV fluids --> LR, 125 mL/hr Chronic conditions #Hx of DVT - INR, 1.7, sub-therapeutic (INR goal, 2-3) - continue Warfarin, dosing (2 mg, daily except for Perera, W) - AM labs, INR's #HTN - continue losartan, hold the triamterene-HCTZ #HLD - continue Crestor #insomnia - Zolpidem, 10 mg, PO, qHS #GERD - continue omeprazole #anemia - continue ferrous sulfate, folic acid, B12 Code status: Full code Disposition: Med-Surg VTE Prophylaxis: continue home dose of Warfarin FENGI: Regular diet/ LR, 125 mL/hr, 2 L total History of Present Illness Chief Complaint: diarrhea, recent Tx w/ antibiotics (ciprofloxacin first, cefdinir) Primary Care Provider: Anthony Yeh MD Patient is an 85 yo F w/ a PMHx of SNHL (b/l), osteoporosis, peripheral neuropathy, hyperparathyroidism, dyslipidemia, anemia, CKD-3, Hx of colon cancer, Hx or RCC (s/p partial nephrectomy, prediabetes, chronic UTI's, aortic stenosis, insomnia, pulmonary nodule, who presented today after having 4 days of diarrhea (pt says "all day", couldn't put number on the episodes), that was really bad, and forced the patient to wear adult pull-ups whenever she went out. At baseline patient lives at home alone in her house. Patient has largely been unable to eat the past four days, also with decreased fluid intake. Patient has been unable to provide a stool sample thus far, and notes that after taking Metamucil yesterday the diarrhea has slowed down considerably. Feels like she can probably give a stool sample soon, though, as she still has cramping and a sense of urgency. Patient notes she recently had a UTI, for which she was treated initially with ciprofloxacin but she prematurely stopped the course d/t the cramping and diarrhea (and did not start the cefdinir prescribed in its place). Patient states that her temperature normally runs a little low (97 deg F). Patient states that it's not unusual for her to have loose stools but she doesn't typically have high volume diarrhea like the last 4 days. Allergies Allergy/AdvReac Type Severity Reaction Status Date / Time Fish Containing Products Allergy Severe Anaphylaxis Verified 09/03/25 14:04 proparacaine [From Ophthetic] Allergy Severe facial Verified 09/03/25 14:04 swelling on side of face with eye drop SHIRLEY Inhibitors Allergy Intermediate coughing Verified 09/03/25 14:04 adhesive Allergy Intermediate TAPE Verified 09/03/25 14:04 ALLERGY = "TEARS SKIN" bacitracin Allergy Intermediate inflammatio Verified 09/03/25 14:04 n clavulanic acid Allergy Intermediate vomiting/or Verified 09/05/25 10:51 [From Augmentin] rash levofloxacin Allergy Intermediate pain Verified 09/05/25 10:51 neomycin Allergy Intermediate inflammatio Verified 09/03/25 14:04 n polymyxin B Allergy Intermediate inflammatio Verified 09/03/25 14:04 n Penicillins Allergy Unknown Unknown Verified 09/03/25 14:04 Sulfa (Sulfonamide Allergy Unknown Unknown Verified 09/05/25 10:51 Antibiotics) amoxicillin AdvReac Intermediate Vomiting Verified 09/05/25 10:51 nitrofurantoin AdvReac Intermediate FLU-LIKE Verified 09/05/25 10:51 SYMPTOMS ciprofloxacin [From Cipro] AdvReac Nausea Verified 09/05/25 10:51 Home Medications Medication Instructions Recorded Confirmed Type cyanocobalamin (vitamin B-12) 500 500 mcg PO QAM 08/15/18 09/08/25 History mcg tablet (Vitamin B-12) acetaminophen 500 mg tablet 1,000 mg PO Q6H PRN Pain 02/14/19 09/08/25 History (Tylenol Extra Strength) ferrous sulfate 325 mg (65 mg 325 mg PO 2XWK 05/12/21 09/08/25 History iron) tablet cholecalciferol (vitamin D3) 50 50 mcg PO DAILY 10/11/22 09/08/25 History mcg (2,000 unit) capsule (Vitamin D3) losartan 50 mg tablet 50 mg PO QAM #135 tabs 08/29/24 09/08/25 Rx folic acid 1 mg tablet 2 mg (2 x 1 mg) PO BID #360 tabs 12/27/24 09/08/25 Rx omeprazole 20 mg capsule,delayed 20 mg PO QAM #90 caps 12/27/24 09/08/25 Rx release fenofibrate nanocrystallized 145 72.5 mg (1/2 x 145 mg) PO HS #90 04/04/25 09/08/25 Rx mg tablet tabs gabapentin 100 mg capsule 0 mg PO DAILY 07/16/25 09/08/25 History rosuvastatin 5 mg tablet 5 mg PO DAILY #90 tabs 08/21/25 09/08/25 Rx tramadol 50 mg tablet 100 mg (2 x 50 mg) PO BID PRN pain 09/02/25 09/08/25 Rx #180 tabs zolpidem 10 mg tablet 10 mg PO HS PRN Sleep #30 tabs 09/02/25 09/08/25 Rx triamterene 37.5 0 cap PO QAM 09/08/25 09/08/25 History mg-hydrochlorothiazide 25 mg capsule warfarin 3 mg tablet 0 mg PO UD 09/08/25 09/08/25 History warfarin 4 mg tablet 2 - 4 mg PO UD 09/08/25 09/08/25 History Past Med/Surg History Problem List (Updated 09/08/25 @ 12:49 by Anthony Ulrich DO) AILYN (acute kidney injury) (Acute) Diarrhea (Acute) Hypomagnesemia (Acute) Hypokalemia (Acute) Weakness (Acute) Genitourinary syndrome of menopause Memory deficits Post concussion syndrome Edema of left lower leg Multiple drug allergies Current use of proton pump inhibitor Aortic stenosis Insomnia Pulmonary nodule Postmenopausal Rotator cuff tear, right Fall Chronic UTI (urinary tract infection) Scoliosis (Chronic) Leg length discrepancy (Chronic) 1.1 cm short on the left Lumbar postlaminectomy syndrome (Chronic) Stone in kidney Prediabetes Anemia, mild CKD (chronic kidney disease) Elevated blood protein superintendent terminal (current) use of anticoagulants (Chronic) warfarin daily Vitamin D deficiency Left nephrolithiasis H/O partial nephrectomy (~01/2019) Right-sided robot-assisted laparoscopic partial nephrectomy Stage 3b chronic kidney disease History of colon cancer s/p R hemicolectomy 1989. +Chemo. Trochanteric bursitis of right hip (Chronic) Renal cell cancer (Chronic) Status post partial nephrectomy on the right Spinal stenosis (Chronic) Solitary pulmonary nodule (Chronic) Sensorineural hearing loss (SNHL) of both ears (Chronic) Peripheral neuropathy (Chronic) Osteoporosis (Chronic) Nontoxic multinodular goiter (Chronic) Lumbosacral radiculopathy (Chronic) Hyperparathyroidism (Chronic) Homocystinemia (Chronic) Dyslipidemia (Chronic) Chronic reflux esophagitis (Chronic) Anemia (Chronic) HTN (hypertension) (Chronic) Medical History Exposure to COVID-19 virus Change in bowel habits Diarrhea Acute kidney injury Sacral fracture, closed S4 diagnosed 09/20/2019 Lumbago Type 2 diabetes mellitus diet controlled Cyst of kidney, acquired 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 Mild aortic calcification without hemodynamically significant valvular aortic stenosis. Hypertension Hyperlipidemia GERD (gastroesophageal reflux disease) Osteoarthritis Colon cancer Surgical History H/O hemicolectomy Hx of cystoscopy with urethral stent placement History of parotid gland excision LEFT History of open reduction and internal fixation (ORIF) procedure RIGHT LEG History of laminectomy LUMBAR Fusion of spine LUMBAR L3-L5, AND CERVICAL 3-4 WITH FULL ROM History of colonoscopy History of hysterectomy ARMANDO WITH OOPHRECTOMY History of section X2 History of parathyroidectomy X2 Family History Father , age 60 of an [place] Myocardial infarction Mother , age 85 of a stroke. Hypertension Stroke Uncle Colorectal cancer Family/Other Colorectal cancer Other Heart disease No family history of adverse response to anesthesia Denies family history of Ovarian cancer Prostate cancer Breast cancer Social History Smoking Status: Never smoker Second Hand Exposure: Yes; Do You Dip or Chew Tobacco: No; Hx Alcohol Use: No Hx Substance Use: No Preferred Language: Upper Sorbian Communication Ability: Effective Visual Impairment: No Limitations Hearing Ability: Use of Hearing Aid [employer] Required: No Beliefs That Will Affect Care: None marital status: Single Current Living Situation: Alone current occupational status: retired 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 Other Information That Helps Us Care for You: No Feels Safe at Home: Yes Safety Concerns: Feels Safe At This Time Childhood Exposure to Second-Hand Smoke: Yes Dental Care, Regularly: No Physical Activity Frequency: Does not Exercise Seatbelt Use: always Sunscreen Use: No Assistive Devices: Hearing Aid - Bilateral Review of Systems Constitutional: + fever (pt notes she felt "feverish") a nd + weakness; no sweats and no body aches Respiratory: + dyspnea on exertion; no cough and no d yspnea Cardiovascular: no chest pain and no palpitations Gastrointestinal: + abdominal pain, + nausea (intermittent nausea), + vomiting (resolved 3 days ago), + cramping, + diarrhea/loose stools and + fecal incontinence Genitourinary: no dysuria, no urinary frequency and no urinary urgency Physical Exam Constitutional: WD/WN, vitals as above Respiratory: normal respiratory effort, lungs clear to auscultation Cardiovascular: RRR, no murmur, no edema Extremities: normal capillary refill and + calf tenderness (chronic calf tenderness (l.)); no edema Gastrointestinal (Abdomen): Inspection/Auscultation: abdomen normal to inspection Percussion/Palpation: + abdomen tender (mild tenderness of LLQ) and + abdomen firm Psychiatric: A+Ox3, euthymic affect Genitourinary: bladder normal to inspection; no CVA tenderness Results & Data Results & Data Vital Signs (Past 12 Hours) Vital Signs Temp Pulse Pulse Resp BP BP Pulse Ox 09/08/25 15:00 72 17 121/59 L 96 09/08/25 13:00 65 16 134/65 97 09/08/25 12:00 71 18 166/82 H 98 09/08/25 11:15 69 16 97 09/08/25 11:15 69 16 128/77 97 09/08/25 10:56 84 09/08/25 10:05 35.8 C L 114 H 18 122/74 96 O2 Del Method 09/08/25 15:00 Room Air 09/08/25 13:00 Room Air 09/08/25 12:00 Room Air 09/08/25 11:15 Room Air 09/08/25 11:15 Room Air 09/08/25 10:56 09/08/25 10:05 Room Air Diagnostic Findings Chest X-Ray 09/08/25 10:30 XR chest 1V portable CLINICAL HISTORY: weakness COMPARISON STUDY: 08/19/2024 FINDINGS: Stable mild cardiomegaly without pulmonary vascular congestion. No consolidation or pleural effusion. No pneumothorax. IMPRESSION: No acute findings. ACT 112: Negative or not required by law. Electronically signed by: Luis M Torres M.D. 09/08/2025 11:02 AM KUB X-Ray 09/08/25 10:30 KUB HISTORY: weakness COMPARISON STUDY: 02/26/2019 FINDINGS: Stable lower lumbar fusion. There are multiple surgical clips at the right upper quadrant. There is mild retained stool. No bowel obstruction seen. No gross free air. IMPRESSION: No acute findings. ACT 112: Negative or not required by law. The above report was generated using voice recognition software. It may contain grammatical, syntax or spelling errors. Electronically signed by: Luis M Torres M.D. 09/08/2025 11:02 AM Supervising Physician Co-Signing Physician Notes Attending Attestation & Admission Note: Pt seen/examined, chart reviewed, admit care plan d/w resident physician Dr Juan Tubbs. 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 Presents with 4 days of severe diarrhea - too numerous to count stools since the illness began. Has had nocturnal diarrhea as well. Very poor appetite over the last 3-4 days. Took 1-2 days of cipro for UTI before this illness started. PMH/PSH/allergies/meds/sochx - reviewed VSS, afebrile gen - pleasant, NAD, nontoxic mouth - MM dry neck - no JVD heart - RRR, s1 s2, 2/6 systolic murmur RUSB lungs - CTA b/l abd - soft NT ND BS+ skin - turgor mildly decreased ext - no edema, pulses 2+ b/l labs reviewed imaging reviewed EKG - NSR, no ST changes A/P: 1. severe diarrhea illness - cdiff? viral? other? -await c diff & stool biofire -IVF -supportive care -replace abnormal electrolytes 2. AILYN - mild, 2nd to #1. IV fluids, bmp am. 3. CKD stage 4. Baseline CrCl 20s. 4. low k, low mag - replace; labs am. 5. chronic coumadin use - INR 1.7. Cont coumadin, no dose adjustment today, INR am. August Mckoy MD
--- NOTE | 2025-09-08 16:15 | Electrocardiogram Report ---
Test Reason : Blood Pressure : */* mmHG Vent. Rate : 80 BPM Atrial Rate : 80 BPM P-R Int : 158 ms QRS Dur : 92 ms QT Int : 370 ms P-R-T Axes : -12 -13 -26 degrees QTcB Int : 426 ms Normal sinus rhythm with sinus arrhythmia Moderate voltage criteria for LVH, may be normal variant ( R in aVL , Jung product ) Nonspecific T wave abnormality Abnormal ECG When compared with ECG of 19-Aug-2024 13:42, Nonspecific T wave abnormality, worse in Inferior leads Confirmed by Alexander Boo ([id number]) on 09/08/2025 4:14:59 PM Referred By: REFERRED SELF Confirmed By: Alexander Boo
[2025-09-08] MEDS ORDERED: ONDANSETRON INJ 2 MG/ML 2 ML VIAL IV PRN (16:38)
[2025-09-08] MEDS ORDERED: ACETAMINOPHEN 500 MG TAB PO PRN (18:14)
[2025-09-08] MEDS: LACTATED RINGER'S 1,000 ML IV SCH (18:28)
[2025-09-08] MEDS: POTASSIUM CHLORIDE / WTR 10 MEQ/100 ML PLCT IV SCH (18:28)
--- NOTE | 2025-09-08 19:28 | Billing Data ---
Date of Service September 08, 2025 Coding Level of Care Code 01269 INT INP/OBS CARE
[2025-09-08] MEDS: WARFARIN SOD 4 MG TAB PO SCH (19:51)
[2025-09-08] MEDS: FOLIC ACID 1 MG TAB PO SCH (19:52)
[2025-09-08] MEDS: FENOFIBRATE NANOCRYSTALLIZED 48 MG TABLET PO SCH (19:52)
[2025-09-08] MEDS: ZOLPIDEM TARTRATE 5 MG TAB PO PRN (22:25)
[2025-09-08 22:27] VITALS: RESP 18
[2025-09-09] MEDS: ROSUVASTATIN CALCIUM 5 MG TAB PO SCH (08:06)
[2025-09-09] MEDS: LOSARTAN POTASSIUM 50 MG TAB PO SCH (08:11)
[2025-09-09] MEDS: CYANOCOBALAMIN (B-12) 500 MCG TABLET PO SCH (08:11)
[2025-09-09] MEDS: CHOLECALCIFEROL 25 MCG (1000 UNITS) TAB PO SCH (08:11)
--- NOTE | 2025-09-09 08:14 | Hospitalist Progress Note ---
Date of Service September 09, 2025 Assessment & Plan (1) Diarrhea: (2) Hypomagnesemia: (3) Hypokalemia: Plan #Diarrhea/Hypovolemia/Abdominal Pain-Cramping - pt w/ 4-day Hx of non-bloody diarrhea after starting ciprofloxacin for UTI - Stool Cx and CDiff Toxin B Gene negative - KUB: 1) There is mild retained stool. No bowel obstruction seen. No gross free air. - BUN, 44; Cr, 1.84; BUN/Cr, 23.9 - LR, 125 mL/hr, ordered, 2 L total - Additional LR 125 mL/hr ordered 1 L - Started colestipol, will monitor how patient is doing in morning #SIRS Criteria - T, 35.8 deg C; HR, 114 upon admission - re-take of T was 97.6 deg C; HR likely elevated in part from dehydration, hypovolemia - Blood Cx ordered, pending #Electrolyte abnormalities/Hypokalemia/Hypomagnesemia - K, 3.3; Mg, 1.5 --> likely secondary to decreased oral intake - KCl, 40 mEq, ordered; MgSO4, 30 mEq ordered - hold triamterene-HCTZ - resolved (Mg - 2.6, K - 4.1) on 09/09 #Hypercalcemia/Hyperparathyroidism - Ca, 10.6 - Hx of hyperparathyroidism (last PTH, 140.8, on 09/02/25) - IV fluids --> LR, 125 mL/hr - resolved, Ca - 10 (09/09) Chronic conditions #Hx of DVT - INR, 1.5, sub-therapeutic (INR goal, 2-3) - continue Warfarin, dosing (2 mg, daily except for Perera, W) - we will do 1 time dose of 4 mg warfarin tomorrow - AM labs, INR's #HTN - continue losartan, hold the triamterene-HCTZ #HLD - continue Crestor #insomnia - Zolpidem, 10 mg, PO, qHS #GERD - continue omeprazole #anemia - continue ferrous sulfate, folic acid, B12 Code status: Full code Disposition: Med-Surg VTE Prophylaxis: continue home dose of Warfarin FENGI: Regular diet/ LR, 125 mL/hr, 2 L total, currently being given 1 L LR Admission and Anticipated Discharge Date Admission Date: September 08, 2025 Supervising Physician Co-Signing Physician Notes Attending Attestation & Admission Note: Pt seen/examined, chart reviewed, care plan d/w resident physician Dr Raquel Humphrey. I agree w/ the guo components of her documentation with the following additions - * CKD stage 4 * mild AILYN (baseline Cr ~1.5/1.6, Cr at peak 1.8, Cr today 1.4) Patient had a formed stool, and shortly after that was back to liquid stool. No abd pain. Is drinking and eating. Feels better overall, but still weak and hasn't done a lot of walking. VSS, afebrile gen - NAD, looks better than yesterday mouth - MM more moist today neck - no JVD heart - RRR, s1 s2, 2/6 systolic murmur RUSB lungs - CTA b/l abd - soft NT ND BS+ ext - no edema, pulses 2+ b/l labs reviewed c diff neg stool biofire neg A/P: 1. severe diarrhea illness - -with neg biofire and neg c diff likely abx-associated diarrhea -she has h/o right-sided hemicolectomy for colon ca -would advise colestipol to help bulk the stool; with prior right hemicolectomy she would have issues with binding bile salts as well -if diarrhea persists consider GI consultation -with neg c diff can also use prn imodium 2. AILYN - improved; BMP am. 3. CKD stage 4. Baseline CrCl 20s. 4. low k, low mag - replaced and now normal. 5. chronic coumadin use for prior DVT - INR 1.5 today. Cont coumadin, INR am. Would not bridge (lovenox etc) at this time. Tomorrow is typically a 2mg day; would do 4mg on 09/10. would obtain PT joselo Mckoy MD Subjective Patient reports 4 day history of non-bloody diarrhea. States she took ciprofloxacin for UTI on 09/03 and 09/04, and then started developing periumbilical abdominal pain with diarrhea. Patient took Metamucil on 09/07 and states her bowel movements slowed down. She did not have BM since admission until later today evening. States she had 2-3 soft non-bloody bowel movements, brown in color. Review of Systems Review of Systems: All systems reviewed & are unremarkable except as noted in HPI & below Physical Exam Constitutional: WD/WN, vitals as above Respiratory: normal respiratory effort, lungs clear to auscultation Cardiovascular: RRR, no murmur, no edema Gastrointestinal (Abdomen): normal bowel sounds, soft, nontender, no hepatosplenomegaly Skin: no rashes, warm and dry Psychiatric: A+Ox3, euthymic affect Results & Data Results & Data Vital Signs (Past 12 Hours) Vital Signs Temp Pulse Resp BP Pulse Ox O2 Del Method 09/09/25 07:56 36.6 C 64 18 157/77 H 99 Room Air 09/08/25 22:26 36.8 C 73 18 132/67 97 Room Air Resident Activity Tracking Resident Involvement: Resident Care Provided Care Provided: Adult Hospital Medicine
[2025-09-09 08:40] LABS: Hematocrit (blood only) 30.6 % (37.0-47.0); Hemoglobin 9.8 g/dl (12.0-16.0); Mean Corpuscular Hemoglobin 27.0 pg (25.0-34.0); Mean Corpuscular Volume 84.3 fL (80.0-100.0); Platelet Count 277 K/uL (130-400); RDW Standard Deviation 46.4 fL (36.4-46.3); Red Blood Count 3.63 M/uL (4.20-5.40); White Blood Count 5.77 K/ul (4.8-10.8)
[2025-09-09 08:59] LABS: Anion Gap 6.0 (3-11); Blood Urea Nitrogen 31.0 mg/dl (6-23); Calcium 10.0 mg/dl (8.6-10.3); Carbon Dioxide 24.0 mmol/L (21-32); Chloride 110.0 mmol/L (98-107); Creatinine Clr Calc Pharmacy 22.6 ml/min; Magnesium 2.6 mg/dl (1.7-2.4); Potassium 4.1 mmol/L (3.5-5.1); Sodium 140.0 mmol/L (136-145)
[2025-09-09 09:32] LABS: INR 1.5 (0.9-1.1); Prothrombin Time 15.1 Seconds (9.0-12.0)
[2025-09-09] MEDS: ACETAMINOPHEN 500 MG TAB PO PRN (12:41)
[2025-09-09 15:33] LABS: Cdiff Toxin B Gene (2yr or >) Negative Cdiff Gene (Neg)
[2025-09-09] MEDS ORDERED: WARFARIN SOD 4 MG TAB PO SCH (16:00)
[2025-09-09 16:08] LABS: Adenovirus F 40/41 PCR Not Detected (NotDetected); Campylobacter PCR Not Detected (NotDetected); Enteroaggregative E.coli(EAEC) Not Detected (NotDetected); Shiga-like Toxin E.coli (STEC) Not Detected (NotDetected); Vibrio species PCR Not Detected (NotDetected)
[2025-09-09] MEDS: LACTATED RINGER'S 1,000 ML IV SCH (17:40)
[2025-09-09] MEDS: COLESTIPOL HCL 1 GM TAB PO SCH (20:45)
[2025-09-10] MEDS: FERROUS SULFATE 325 MG TAB PO SCH (08:09)
[2025-09-10 08:21] VITALS: PULSE 72; TEMP 98.1; O2SAT 98
[2025-09-10 09:09] LABS: Hematocrit (blood only) 29.5 % (37.0-47.0); Hemoglobin 9.3 g/dl (12.0-16.0); Mean Corpuscular Hemoglobin 26.8 pg (25.0-34.0); Mean Corpuscular Volume 85.0 fL (80.0-100.0); Platelet Count 257 K/uL (130-400); RDW Standard Deviation 47.5 fL (36.4-46.3); Red Blood Count 3.47 M/uL (4.20-5.40); White Blood Count 5.71 K/ul (4.8-10.8)
--- NOTE | 2025-09-10 09:38 | Hospitalist Progress Note ---
Date of Service September 10, 2025 Assessment & Plan Admission and Anticipated Discharge Date Admission Date: September 08, 2025 Results & Data Results & Data Vital Signs (Past 12 Hours) Vital Signs Temp Pulse Resp BP Pulse Ox O2 Del Method 09/10/25 08:19 36.7 C 72 18 159/75 H 98 Room Air 09/09/25 23:08 37.2 C 65 18 130/69 97 Room Air Resident Activity Tracking Resident Involvement: Resident Care Provided Care Provided: Adult Hospital Medicine
[2025-09-10 09:44] LABS: Anion Gap 5.0 (3-11); Blood Urea Nitrogen 27.0 mg/dl (6-23); Calcium 9.5 mg/dl (8.6-10.3); Carbon Dioxide 25.0 mmol/L (21-32); Chloride 113.0 mmol/L (98-107); Creatinine Clr Calc Pharmacy 25.9 ml/min; Potassium 3.8 mmol/L (3.5-5.1); Sodium 143.0 mmol/L (136-145)
--- NOTE | 2025-09-10 09:52 | Billing Data ---
Date of Service September 09, 2025 Coding Level of Care Code 16466 SUB INP/OBS CARE
[2025-09-10 09:59] LABS: INR 1.9 (0.9-1.1); Prothrombin Time 19.3 Seconds (9.0-12.0)
--- NOTE | 2025-09-10 10:12 | Discharge Summary ---
Date of Service September 10, 2025 Admission HPI Per Admitting Provider Patient is an 85 yo F w/ a PMHx of SNHL (b/l), osteoporosis, peripheral neuropathy, hyperparathyroidism, dyslipidemia, anemia, CKD-3, Hx of colon cancer, Hx or RCC (s/p partial nephrectomy, prediabetes, chronic UTI's, aortic stenosis, insomnia, pulmonary nodule, who presented today after having 4 days of diarrhea (pt says "all day", couldn't put number on the episodes), that was really bad, and forced the patient to wear adult pull-ups whenever she went out. At baseline patient lives at home alone in her house. Patient has largely been unable to eat the past four days, also with decreased fluid intake. Patient has been unable to provide a stool sample thus far, and notes that after taking Metamucil yesterday the diarrhea has slowed down considerably. Feels like she can probably give a stool sample soon, though, as she still has cramping and a sense of urgency. Patient notes she recently had a UTI, for which she was treated initially with ciprofloxacin but she prematurely stopped the course d/t the cramping and diarrhea (and did not start the cefdinir prescribed in its place). Patient states that her temperature normally runs a little low (97 deg F). Patient states that it's not unusual for her to have loose stools but she doesn't typically have high volume diarrhea like the last 4 days. Admission Exam Per Admitting Provider Constitutional: WD/WN, vitals as above Respiratory: normal respiratory effort, lungs clear to auscultation Cardiovascular: RRR, no murmur, no edema Extremities: normal capillary refill and + calf tenderness (chronic calf tenderness (l.)); no edema Gastrointestinal (Abdomen): Inspection/Auscultation: abdomen normal to inspection Percussion/Palpation: + abdomen tender (mild tenderness of LLQ) and + abdomen firm Psychiatric: A+Ox3, euthymic affect Genitourinary: bladder normal to inspection; no CVA tenderness Principal Diagnosis Diarrhea Discharge Exam Constitutional WD/WN, vitals as above Respiratory normal respiratory effort, lungs clear to auscultation Cardiovascular RRR, no murmur, no edema Gastrointestinal (Abdomen) normal bowel sounds, soft, nontender, no hepatosplenomegaly Skin no rashes, warm and dry Psychiatric Orientation: alert and oriented x 3 Discharge Data Allergies Allergy/AdvReac Type Severity Reaction Status Date / Time Fish Containing Products Allergy Severe Anaphylaxis Verified 09/03/25 14:04 proparacaine [From Ophthetic] Allergy Severe facial Verified 09/03/25 14:04 swelling on side of face with eye drop SHIRLEY Inhibitors Allergy Intermediate coughing Verified 09/03/25 14:04 adhesive Allergy Intermediate TAPE Verified 09/03/25 14:04 ALLERGY = "TEARS SKIN" bacitracin Allergy Intermediate inflammatio Verified 09/03/25 14:04 n clavulanic acid Allergy Intermediate vomiting/or Verified 09/05/25 10:51 [From Augmentin] rash levofloxacin Allergy Intermediate pain Verified 09/05/25 10:51 neomycin Allergy Intermediate inflammatio Verified 09/03/25 14:04 n polymyxin B Allergy Intermediate inflammatio Verified 09/03/25 14:04 n Penicillins Allergy Unknown Unknown Verified 09/03/25 14:04 Sulfa (Sulfonamide Allergy Unknown Unknown Verified 09/05/25 10:51 Antibiotics) amoxicillin AdvReac Intermediate Vomiting Verified 09/05/25 10:51 nitrofurantoin AdvReac Intermediate FLU-LIKE Verified 09/05/25 10:51 SYMPTOMS ciprofloxacin [From Cipro] AdvReac Nausea Verified 09/05/25 10:51 Consultations 09/08/25 14:26 ED Decision to Admit Stat Hospital Course (1) Diarrhea: (2) Hypomagnesemia: (3) Hypokalemia: (4) Weakness: Plan Plan #Diarrhea/Hypovolemia/Abdominal Pain-Cramping - pt w/ 4-day Hx of non-bloody diarrhea after starting ciprofloxacin for UTI - Stool Cx and CDiff Toxin B Gene negative - KUB: 1) There is mild retained stool. No bowel obstruction seen. No gross free air. - BUN, 44; Cr, 1.84; BUN/Cr, 23.9 - LR, 125 mL/hr, ordered, 2 L total - Additional LR 125 mL/hr ordered 1 L - Started colestipol, no BM since last night, doing better, most likely abx-associated diarrhea - Plan for d/c today, advised patient to hydrate well and use probiotic/probiotic yogurt with antibiotics in future, prescribed colestipol 1g BID for 7 days + Florastor probiotics for home #SIRS Criteria - T, 35.8 deg C; HR, 114 upon admission - re-take of T was 97.6 deg C; HR likely elevated in part from dehydration, hypovolemia - Blood Cx ordered, preliminary 24 hr shows no growth #Electrolyte abnormalities/Hypokalemia/Hypomagnesemia - K, 3.3; Mg, 1.5 --> likely secondary to decreased oral intake - KCl, 40 mEq, ordered; MgSO4, 30 mEq ordered - hold triamterene-HCTZ - resolved (Mg - 2.6, K - 4.1) on 09/09, K+ 4 on 09/10 #Hypercalcemia/Hyperparathyroidism - Ca, 10.6 - Hx of hyperparathyroidism (last PTH, 140.8, on 09/02/25) - IV fluids --> LR, 125 mL/hr - resolved, Ca - 10 (09/09), 8.7 (09/10) Chronic conditions #Hx of DVT - INR, 1.5, sub-therapeutic (INR goal, 2-3) - continue Warfarin, dosing (2 mg, daily except for Perera, W) - instructed patient to complete 1 time dose of 3g warfarin tonight - AM labs, INR's #HTN - continue losartan, hold the triamterene-HCTZ #HLD - continue Crestor #insomnia - Zolpidem, 10 mg, PO, qHS #GERD - continue omeprazole #anemia - continue ferrous sulfate, folic acid, B12 Code status: Full code Disposition: d/c to home VTE Prophylaxis: continue home dose of Warfarin FENGI: Regular diet/ LR, 125 mL/hr, 2 L total, currently being given 1 L LR Total Time Total Time Spent Total Time Spent (In Minutes): as per attending attestation Discharge Plan Discharge Items Patient Disposition: Home - Self-Care Reason For Visit: DIARRHEA Discharge Diagnosis: Diarrhea Condition on Discharge: Fair Activity: Resume your previous activity Non-emergency contact: Primary Care Provider Call non-emergency contact if: your symptoms worsen, your pain is worsening and you have a fever Follow-up/Referrals: ProAnthony MD [Primary Care Provider] - 09/18/25 1:30 pm Diet: Carb Consistent or DM2 and Heart Healthy Addtl Attending Provider Instructions: You were seen in the emergency room for 4 day history of non-bloody diarrhea after 2 day use of Ciprofloxacin to treat your UTI. During your time here, you received IV fluids, had your electrolytes repleted, and had diagnostic tests performed to rule out potential severe causes of diarrhea, such as C. difficile infection, salmonella infection, Campylobacter infection, etc. 1) The diarrhea you experienced was likely antibiotic-associated diarrhea, which is risk factor for everyone as the antibiotics kill the beneficial gut emiliano and disrupt the metabolic balance of the gut. You can help compensate for this by taking a probiotic--Florastor (which we have sent to your pharmacy) or another capsule-type probiotic or by eating yogurt. We have also sent a 7 day supply of Colestipol, a diarrhea medication, that you can take 1 pill twice daily. 2) You were quite dehydrated when you were admitted. We would recommend drinking at least 64 fl. oz. of non-caffeinated, non-alcoholic fluids a day. 3) The X-ray of your abdomen also showed some mild amount or retained stool. Constipation can also lead to diarrhea, as the stool present in the colon becomes hardened and not easily moved, allowing only liquid stool to pass. Pending Studies at Discharge: No Stand-Alone Forms: [facility], Smoking Cessation Medications and DC Order Prescriptions: New colestipol 1 gram tablet 1 g PO BID 7 Days Qty: 14 0RF Saccharomyces boulardii [Florastor] 250 mg capsule 250 mg PO DAILY 14 Days Qty: 14 0RF Continued omeprazole 20 mg capsule,delayed release(DR/EC) 20 mg PO QAM Qty: 90 3RF Rx Instructions: TAKE 1 CAPSULE BY MOUTH DAILY folic acid 1 mg tablet 2 mg PO BID Qty: 360 3RF fenofibrate nanocrystallized 145 mg tablet 72.5 mg PO HS Qty: 90 3RF Rx Instructions: TAKE 1/2 TABLET AT BEDTIME rosuvastatin 5 mg tablet 5 mg PO DAILY Qty: 90 3RF ferrous sulfate 325 mg (65 mg iron) tablet 325 mg PO 2XWK Patient Comments: 09/08- otc unable to verify Rx Instructions: TAKES ON MONDAY & WEDNESDAYS. losartan 50 mg tablet 50 mg PO QAM Qty: 135 3RF gabapentin 100 mg capsule 0 mg PO DAILY Patient Comments: 09/08- last filled 90 day supply #360 zolpidem 10 mg tablet 10 mg PO HS PRN (Reason: Sleep) Qty: 30 0RF tramadol 50 mg tablet 100 mg PO BID PRN (Reason: pain) Qty: 180 0RF Rx Instructions: not to take with Zolpidem Supervising physician Anthony Yeh MD [facility] [id number] cyanocobalamin (vitamin B-12) [Vitamin B-12] 500 mcg Tablet 500 mcg PO QAM Patient Comments: 09/08- otc unable to verify acetaminophen [Tylenol Extra Strength] 500 mg Tablet 1,000 mg PO Q6H PRN (Reason: Pain) Patient Comments: 09/08- otc unable to verify cholecalciferol (vitamin D3) [Vitamin D3] 50 mcg (2,000 unit) Capsule 50 mcg PO DAILY Patient Comments: 09/08- otc unable to verify triamterene-hydrochlorothiazid 37.5-25 mg capsule 0 cap PO QAM Patient Comments: 09/08- last fille 05/12 90 day supply #90 warfarin 4 mg tablet 2 - 4 mg PO UD Protocol: Dose Management Condition: Monday Dose/Route: 2 mg Instruction: 0.5 x 4 mg tablets Condition: Monday Dose/Route: 2 mg Instruction: 0.5 x 4 mg tablets Condition: Monday Dose/Route: 2 mg Instruction: 0.5 x 4 mg tablets Condition: Monday Dose/Route: 2 mg Instruction: 0.5 x 4 mg tablets Condition: Dose/Route: 2 mg Instruction: 0.5 x 4 mg tablets Condition: Monday Dose/Route: 2 mg Instruction: 0.5 x 4 mg tablets Condition: Monday Dose/Route: 2 mg Instruction: 0.5 x 4 mg tablets Protocol Text: Adjustment Start Date: Monday08/15/25 INR Value: 1.9 INR Date: 08/15/25 Additional Instructions: Patient advised to take an extra 1mg today 08/15/25 then resume normal dose and recheck in one week Rx Instructions: TAKES 2 MG ON MONDAY AND WEDNESDAYS, THEN 4 MG ALL OTHER DAYS. See protocol as directed PO daily; Discontinued warfarin 3 mg tablet 0 mg PO UD Protocol: Dose Management Condition: Monday Dose/Route: 2 mg Instruction: 0.5 x 4 mg tablets Condition: Monday Dose/Route: 2 mg Instruction: 0.5 x 4 mg tablets Condition: Monday Dose/Route: 2 mg Instruction: 0.5 x 4 mg tablets Condition: Monday Dose/Route: 2 mg Instruction: 0.5 x 4 mg tablets Condition: Dose/Route: 2 mg Instruction: 0.5 x 4 mg tablets Condition: Monday Dose/Route: 2 mg Instruction: 0.5 x 4 mg tablets Condition: Monday Dose/Route: 2 mg Instruction: 0.5 x 4 mg tablets Protocol Text: Adjustment Start Date: Monday08/15/25 INR Value: 1.9 INR Date: 08/15/25 Additional Instructions: Patient advised to take an extra 1mg today 08/15/25 then resume normal dose and recheck in one week Patient Comments: 09/08- no fill history unable to verify Rx Instructions: 3 mg orally twice weekly Discharge Orders: Discharge Order (Routine); Ordered 09/10/25 Ordered By: Raquel Humphrey Admission Data Admit Date/Time: 09/08/25 16:39 Attending Provider: Shyam Zepeda Admit Provider: Juan Tubbs Primary Care Provider: Anthony Yeh Other Providers: August Mckoy Other Interventions: Discharge Summary Assessment (RN) Last Done: 09/10/25 13:51 Resident Activity Tracking Resident Involvement: Resident Care Provided Care Provided: Adult Hospital Medicine
[2025-09-10 13:54] VITALS: BP 164/73
[2025-09-10] MEDS ORDERED: WARFARIN SOD 4 MG TAB PO ONE (16:00)
[2025-09-10] MEDS ORDERED: WARFARIN SOD 3 MG TAB PO ONE (16:00)
[2025-09-10] MEDS ORDERED: WARFARIN SOD 2 MG TAB PO SCH (16:00)
== END 2025-09-10 15:30 | disposition home or self-care (01) ==
LOC: SUATTDRO → ED 10:03 → 3N 10:03 → SUATTDRO 16:39 → 3N 17:45